=== PATIENT | male | born 1955 | race Caucasian/White ===

== ENCOUNTER → 2017-06-17 06:47 | Outpatient (CLI) | payer BC, SELFPAY ==
[2017-06-17 08:17] LABS: Absolute Lymphocyte Count 1.44 X10^3/ul (0.83-4.51); Absolute Neutrophil Count 3.9 X10^3/uL (2.0-7.7); Basophil# 0.04 X10^3/uL; Basophil% 0.6 % (0-1); Eosinophil# 0.32 X10^3/uL; Eosinophils% 5.1 % (0-5); Hematocrit 49.2 % (40-54); Hemoglobin 16.7 g/dl (13.0-16.5); Lymphocyte # 1.44 X10^3/ul (4.0); Lymphocyte % 22.8 % (19-41); Mean Corp Hgb Conc 33.9 g/gl (32-36); Mean Corpuscular Hgb 30.5 pg (27.0-32.0); Mean Corpuscular Volume 89.8 fL (80-94); Mean Platelet Vol. 9.8 fl (6.2-12.0); Monocyte# 0.65 X10^3/uL; Monocyte% 10.3 % (0-10); Neutrophil # 3.86 X10^3/uL (2.7-7.7); Platelet Count 268 K/mm3 (150-450); RBC Distribution Width CV 13.5 % (11.6-14.6); RBC Distribution Width SD 44.7 fl (35.1-43.9); Red Blood Count 5.48 M/mm3 (4.6-6.2); White Blood Count 6.3 K/mm3 (4.4-11.0)
[2017-06-17 08:30] LABS: POSITIVE COUNT NO; POSITIVE DIFFERENTIAL NO; POSITIVE MORPHOLOGY NO
[2017-06-17 08:40] LABS: ALB/GLOB Ratio 1.1 RATIO (0.9-2.4); AST(SGOT) 14 U/L (15-37); Alanine Aminotransfer ALT/SGPT 22 U/L (16-61); Albumin, Serum 3.8 g/dL (3.2-5.0); Alkaline Phosphatase 101 U/L (45-117); Anion Gap 4 (5-15); BUN 13 mg/dL (7-18); Calcium,Total 8.3 mg/dL (8.5-10.1); Chloride 107 mmol/L (98-107); Cholesterol 149 mg/dL (200); Creatinine, Serum 0.93 mg/dL (0.70-1.30); EST Glomerular Filtration Rate 88 mL/min (>60); Est Glom Filt Rate - Afr Amer 106 mL/min (>60); Globulin 3.6 g/dL (2.2-4.2); Glucose 95 mg/dL (74-106); High Density Lipoprotein 44 mg/dL; Potassium 4.2 mmol/L (3.5-5.1); Protein, Total 7.4 g/dL (6.4-8.2); Sodium Level 140 mmol/L (136-145); Triglycerides 68 mg/dL; Very Low Density Lipoprotein 14 mg/dL (5-40)
== END ==
PROVIDERS: Family Provider Family Medicine; PCP Family Medicine; Visit Provider Family Medicine
DX: Z00.00 Encounter for general adult medical examination without abnormal findings (principal); Z77.29 Contact with and (suspected) exposure to other hazardous substances; F17.200 Nicotine dependence, unspecified, uncomplicated
CPT/HCPCS: 36415; 80053; 80061; 83036; 85025

== ENCOUNTER → 2017-06-22 16:19 | Outpatient (CLI) | payer BC, SELFPAY | PROVIDERS: Family Provider Family Medicine; PCP Family Medicine; Visit Provider Family Medicine | DX: F17.200 Nicotine dependence, unspecified, uncomplicated (principal) | CPT/HCPCS: 36415 ==

== ENCOUNTER → 2017-06-23 18:53 | Outpatient (CLI) | payer BC, SELFPAY ==
--- NOTE | 2017-06-23 19:01 | CT_ITS ---
STUDY: LOW DOSE CT LUNG CANCER SCREENING REASON FOR EXAM: Male, 61 years old. Long-term tobacco abuse. RADIATION DOSAGE (If Supplied By Facility): CTDIvol = ( 4.02 ) mGy, DLP = ( 116.82 ) mGycm TECHNIQUE: No contrast was administered. Low dose technique was utilized (average mAS-38 and kVp 120). 1.25 mm axial source images with a slice interval of 1.25-mm were reconstructed in lung windows. 2.5 mm axial source images with a slice interval of 2.5-mm were reconstructed in lung windows. 5.0 mm axial source images with a slice interval of 5.0-mm were reconstructed in soft tissue windows. Nodule measured using lung windows on PACS and/or independent workstation with automated measurement of minimum and maximum diameter. Nodule measurement reported as average diameter rounded to the nearest whole number. Growth is defined as an increase ins size of greater than 1.5 mm. COMPARISON: Comparison is made with prior examination dated October 14, 2012. NODULES: No suspicious nodular densities are seen. Mild increased markings at the lung bases suggesting mild basilar scarring. Aorta: Mild calcific plaques at the level of the aortic arch. Other chest and abdominal findings: Degenerative changes of the dorsal vertebrae. CT/Low Dose CT Lung Screening IMPRESSION: Lung-RADS category 2 - Continue annual screening with LDCT in 12 months. IMPORTANT NOTES FOR USE: ACR Lung-RADS Version 1.0 Assessment Categories Release Date: August 06, 2013 Category: Coded 0-4 bases on nodule(s) with highest degree of suspicion. Negative screen is defined as categories 1 and 2; a positive screen is defined as categories 3 and 4. Category 3 and 4A nodules that are unchanged on interval CT should be coded as category 2, and individuals returned to screening in 12 months. Category 4X: Category 3 or 4 nodules with additional imaging findings that increase the suspicion of lung cancer, such as spiculation, GGN that doubles in size in 1 year, enlarged lymph notes, etc. Category Modifiers: S (significant finding unrelated to lung cancer) and C (prior history of treated lung cancer) may be added to the 0-4 Lung-RADS Electronically Signed: Aneudy Garvin MD at 12:34 EDT Tel [phone], Service support ,
== END ==
PROVIDERS: Family Provider Family Medicine; PCP Family Medicine; Visit Provider Family Medicine
DX: F17.200 Nicotine dependence, unspecified, uncomplicated (principal)
CPT/HCPCS: G0297

== ENCOUNTER 2017-10-25 05:26 | Inpatient (IN) | payer BC, SELFPAY ==
[2017-10-07 13:13] VITALS: BP 129/80; PULSE 70; RESP 16; TEMP 36.7; O2SAT 97; BMI 33.3
--- NOTE | 2017-10-07 13:37 | SDCEKG_ITS ---
Test Reason : Blood Pressure : / mmHG Vent. Rate : 067 BPM Atrial Rate : 067 BPM P-R Int : 148 ms QRS Dur : 092 ms QT Int : 430 ms P-R-T Axes : 027 034 039 degrees QTc Int : 454 ms Normal sinus rhythm Normal ECG Confirmed by NIKUNJ MATA, MALENA ([id number]), multimedia editor CAROLYN RAMIREZ ([id number]) on 10/10/2017 3:06:08 PM Referred By: Les Hester Confirmed By:MALENA CALVIN MD
[2017-10-07 14:03] LABS: Absolute Lymphocyte Count 1.43 X10^3/ul (0.83-4.51); Absolute Neutrophil Count 4.5 X10^3/uL (2.0-7.7); Basophil# 0.04 X10^3/uL; Basophil% 0.5 % (0-1); Eosinophils% 6.8 % (0-5); Hematocrit 41.9 % (40-54); Hemoglobin 14.1 g/dl (13.0-16.5); Lymphocyte # 1.43 X10^3/ul (4.0); Lymphocyte % 19.5 % (19-41); Mean Corp Hgb Conc 33.7 g/gl (32-36); Mean Corpuscular Hgb 30.5 pg (27.0-32.0); Mean Corpuscular Volume 90.7 fL (80-94); Mean Platelet Vol. 9.4 fl (6.2-12.0); Monocyte# 0.82 X10^3/uL; Monocyte% 11.2 % (0-10); Neutrophil # 4.53 X10^3/uL (2.7-7.7); Neutrophil % 61.9 % (47-70); Platelet Count 221 K/mm3 (150-450); RBC Distribution Width CV 14.2 % (11.6-14.6); RBC Distribution Width SD 47.3 fl (35.1-43.9); Red Blood Count 4.62 M/mm3 (4.6-6.2); White Blood Count 7.3 K/mm3 (4.4-11.0)
[2017-10-07 14:04] LABS: POSITIVE COUNT NO; POSITIVE DIFFERENTIAL NO; POSITIVE MORPHOLOGY NO
[2017-10-07 14:10] LABS: International Normalized Ratio 1.1; Prothrombin Time (Protime)PT. 14.1 SECONDS (11.7-14.9)
[2017-10-07 14:11] LABS: Partial Thromboplast Time 33.7 Seconds (24.1-36.2)
[2017-10-07 14:28] LABS: AST(SGOT) 23 U/L (15-37); Alanine Aminotransfer ALT/SGPT 25 U/L (16-61); Albumin, Serum 3.7 g/dL (3.2-5.0); Alkaline Phosphatase 94 U/L (45-117); Anion Gap 8 (5-15); BUN 29 mg/dL (7-18); BUN/Creat Ratio 31.8 RATIO (10-20); Bilirubin, Direct 0.15 mg/dL (0.00-0.30); Calcium,Total 8.1 mg/dL (8.5-10.1); Chloride 109 mmol/L (98-107); Creatinine, Serum 0.91 mg/dL (0.70-1.30); EST Glomerular Filtration Rate 89 mL/min (>60); Est Glom Filt Rate - Afr Amer 108 mL/min (>60); Estimated Creatinine Clearance 77.68 ml/min; Globulin 3.1 g/dL (2.2-4.2); Glucose 111 mg/dL (74-106); Potassium 3.8 mmol/L (3.5-5.1); Protein, Total 6.8 g/dL (6.4-8.2); Sodium Level 142 mmol/L (136-145)
--- NOTE | 2017-10-07 22:26 | HP.PCM_ITS ---
History and Physical DATE OF SURGERY: 10/25/2017 SCHEDULED PROCEDURE: Left reverse total shoulder arthroplasty HISTORY OF PRESENT ILLNESS: This is a 62-year-old male whose been having ongoing left shoulder pain for several months. Pain can reach as high as a 9 out of 10. Pain has been constant, aching, and stabbing. Patient is right-hand dominant. 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 He states increased pain with driving. Pain is located over the anterior lateral aspect of the left shoulder. Patient feels his activities of daily living have been affected. Patient feels his motion is limited in comparison to his right side. Patient has had conservative measures consisting of previous corticosteroid injections which only gave him 1 day relief. He has also tried [id number] Aleve, Advil, Tylenol with no significant relief. He has tried tramadol the past with minimal relief. Patient's x-rays show severe rotator cuff arthropathy with superior migration of the humeral head and where under the undersurface of the acromion. Patient currently denies any chest pain, shortness of breath, fevers chills, or recent infections. Patient denies any medical history. We are obtaining surgical clearance from patient's primary care physician. REVIEW OF SYSTEMS: ROS: Const: Denies anorexia, change in appetite, fever, difficulty sleeping and weight change. CV: Denies chest pain, heart murmur, irregular heartbeat and peripheral vascular disease. Resp: Denies asthma, cough, pneumonia, sleep apnea, shortness of breath, tuberculosis and wheezing. GI: Denies constipation, diarrhea, heartburn, nausea, rectal itching, bloody stools and vomiting. : Denies incontinence. Musculo: Reports weakness, but denies leg swelling, pain and trouble walking. Skin: Denies Raynaud's, history of shingles and tattoo. Neuro: Denies ambulatory dysfunction, dizziness, numbness/tingling and tremor. Psych: Denies anxiety, depression, insomnia, mental illness and stress. Ahmet/Lymph: Denies anemia, bleeding/bruising tendency and past transfusion. Reviewed, no changes. PAST MEDICAL HISTORY: Advance Care Plan: Other Directive, LIVING WILL Effective Date: 08/12/2017 PMH: Medical Problems: None Accidents: Bilat Shoulder Sprain,Tear Surgical Hx: RT Shoulder Tendon Repair - [facility] Anesthesia Complications: None Assistive Devices: Glasses Reviewed, no changes. 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 Personal Habits: Smoking: Patient is a current smoker, smokes every day.Cigarette Use: Currently smokes - 3/4 PPD FOR 35 YRS.Alcohol: Occasionally.Drug Use: Denies Use.Enjoy Exercising: Exercises 1-3 X/Week. Reviewed, no changes. VITALS: Ht: 67.5 Wt: 216lb Wt k.978 BMI: 33.3 BP: 148/63 Pulse: 73 Resp: 16 T: 97.9 T: 36.6C ALLERGIES: No Known Drug Allergy MEDICATIONS: Meloxicam 15 mg 1 by mouth every day, Tramadol HCL 50 mg 1-2 by mouth every 6 hours as needed pain, Tylenol 325 mg 2 every 8 hours PRE-OP EXAM: General appearance:NORMAL Other: Eyes: Conjunctivae and lids: NORMAL Pupils: ERR Ears, Nose, Mouth, and Throat: NORMAL Other: Inspection of lips, teeth and gums: NORMAL Other: Neck: Examination of neck: no masses noted. Respiratory: Assessment of respiratory effort: NORMAL Other: Auscultation of lungs: clear to auscultation no wheezes, rhonchi or rales. Cardiovascular: Auscultation of heart: regular rate and rhythm, no murmurs, gallops or rubs. Exam of carotid arteries: NORMAL Other: Gastrointestinal: Exam of abdomen: soft, nontender, nondistended bowel sounds present. PHYSICAL EXAMINATION: Examination of the left shoulder reveals tenderness to palpation of the anterior and lateral aspect. On range of motion there is crepitus appreciated. Patient has internal rotation to L1, forward elevation to 170, external rotation 10. Patient has decreased strength with his rotator cuff: Supraspinatus 4/5. Sensation is intact to axillary, radial, median, and ulnar nerve distribution. Motor is intact to AIN, PI and, in ulnar nerve. IMAGING STUDIES: X-rays of the left shoulder reveal severe rotator cuff arthropathy with joint space narrowing, osteophyte formation, and superior migration of the humeral head. There is also undersurface wear of the acromion. IMPRESSION: 1. Severe left shoulder rotator cuff arthropathy with superior migration of the humeral head PLAN: Dr. Hester did discuss and review with the patient all treatment options including surgical versus nonsurgical options. Patient does wish to proceed with the above-stated procedure. Potential risks, benefits, and complications of the procedure were discussed in detail including but not limited to , infection, nerve and blood vessel damage, persistent pain, numbness, tingling, paresthesias, blood clot, pulmonary embolism, and requirement for possible further surgery. The patient expressed full understanding and has no further questions for the doctor. Patient does agree to proceed with the above-stated procedure and has signed the surgery consent form. ___ I have re-examined the patient. There are no clinical changes since date of exam. ___ See progress notes for changes. ___ Dictated on admission Date: Time: Signature:
[2017-10-25] VITALS (10 sets, daily range): BP systolic 109–150; BP diastolic 69–93; PULSE 63–83; RESP 16–18; TEMP 36–37; O2SAT 92–98; BMI 33.3
[2017-10-25] MEDS: Celecoxib 200 MG Capsule 400 MG PO (05:59)
[2017-10-25] MEDS: oxyCODONE HCl Cr 10 MG Tablet PO (06:00)
[2017-10-25] MEDS: Acetaminophen 500 MG Tablet 1000 MG PO ×3 (06:00→22:22)
--- NOTE | 2017-10-25 06:48 | RAD_ITS ---
STUDY: X-RAY - LEFT SHOULDER REASON FOR EXAM: Male, 62 years old. Left shoulder arthroplasty. TECHNIQUE: Single frontal view(s) of the shoulder. COMPARISON: None. FINDINGS: The patient is status post left reverse shoulder replacement. There is good alignment. Left basilar atelectasis. RAD/Shoulder One View IMPRESSION: Status post left shoulder replacement. There is good alignment. Increased markings at the left lung base suggestive of left basilar atelectasis. Electronically Signed: Aneudy Garvin MD at 10:25 EDT Tel [phone], Service support ,
[2017-10-25] MEDS: Cefazolin 2 GM in 0.9% Normal Saline 100 ML IV (07:16)
--- NOTE | 2017-10-25 08:55 | OP.PCM_ITS ---
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 Equinox glenoid baseplate from [employer] for reverse TSA 2. Equinox 38mm Glenosphere 3. Equinox 0mm, 38mm humeral liner 4. Equinox reverse TSA humeral adapter tray 0mm 5. Equinox humeral stem primary press-fit 14mm size Brief history/Operative indications: 62 yo m with history of L shoulder pain and cuff tear arthropathy. Patient failed conservative measures as mentioned in the H&P. After discussion of risk and benefits of reverse total shoulder replacement including but not limited to blood loss, DVTs, PEs, nerve vessel damage, infection, general risk of anesthesia including loss of life, instability and stiffness patient demonstrating understanding wish to proceed was able to sign informed consent. Medical clearance was obtained. Procedure: On the date of the procedure, patient's L upper extremity was marked in the preoperative area. Patient was taken back to the operating room where they were placed on the table in the supine position. Anesthesia assumed control of the C-spine and airway, then administered anesthetic. All bony prominences were identified well-padded, the head was secured and the patient was placed in the beachchair position at about 35? inclination. Anesthesia remained in control of the C-spine airway throughout the remainder of the procedure. Patient was then appropriately fastened to the table and the L upper extremity was prepped in a sterile fashion. The surgeons then scrubbed. Upon reentering the room, the L upper extremity was draped in a sterile fashion and the incision was marked out. Timeout was called, everyone agreed upon the side, the site, the procedure to be performed, patient identity and antibiotics given. Incision was taken down through skin and subcutaneous tissue, fat down to fascia. The stripe of the deltopectoral interval and cephalic vein were identified and blunt dissection was used to retract the deltoid. The cephalic vein was retracted laterally. Clavipectoral fascia was then incised and a cobra retractor was placed in the wound. The proximal one third of the pectoralis major insertion was released. Pectoralis tendon insertion was used to tenodesed the biceps tendon which was identified in the bicipital groove. Tenodesis was done with #1 Vicryl. Proximally we followed the biceps tendon after transecting it into the rotator interval. The rotator interval was split and the arm was externally rotated. The split was 1 cm medial to the bicipital groove. Subscapularis tendon was released. We released down the anterior portion of the humeral head and a patel elevator was used to release the inferior portion of the humeral head. The arm was externally rotated and the shoulder was dislocated. The [employer] humeral head cutting guide was used to make humeral cut. This was done at 20? retroversion. Once his humeral head cut was made humerus was retracted out of the way and the glenoid was exposed. After exposing the glenoid, the labrum and the remaining proximal biceps were debrided. At this time we are able to view the entire outer edge of the glenoid. A central pin was placed we sequentially reamed over this central pin to 38 mm. Once this was completed the central pedicle was drilled. The glenoid baseplate was impacted into place. Wound was closely irrigated out with normal saline we then drilled sequentially for 4 screws. Screws were placed superiorly and inferiorly and tightened down the screws. Then anteriorly and posteriorly. Once the screws were appropriately tightened into place the glenoid baseplate was compressed against the exposed subchondral bone. Locking caps were placed and a 38mm glenosphere was impacted into place engaging the Hoff taper. The central screw was then tightened into place. Attention was then turned towards the humerus. The humerus was again externally rotated exposing the proximal portion of the humerus. Central canal finder was then used to open up the canal. We broached to a 38mm reamer. We trialed the 0mm liner, with the 0mm humeral baseplate. We obtained an adequate reduction at this time with a nice stable shoulder. Good internal rotation to the gluteus, forward elevation to 140?, external rotation to 20?. Final components were then assembled on the back table, trials were removed and the wound was copiously irrigated with normal saline after dislocating the shoulder. Once the final components were assembled they were impacted into place. Shoulder was then reduced and found to be stable with good range of motion. Subscapularis tendon was not repairable. The wound was then copiously irrigated out with a 1 L normal saline lavage. The deltopectoral fascia was then closed using #1 Vicryl skin was closed using 2-0 Vicryl interrupted sutures and final skin closure was done with 3-0 Monocryl. Steri-Strips are placed for final skin closure. Sterile dressing was placed patient was then placed in a sling and awakened by anesthesia. Patient was then transferred to the PACU for recovery. Postoperative plan: Patient will be admitted to the hospital overnight. They will get physical therapy starting in 2 weeks with normal postoperative regimen. Patient will be placed on 325 mg aspirin daily for DVT prophylaxis. The first postoperative appointment will be in 2 weeks for wound check and initiation of phase 1 physical therapy. During the course of the procedure the physician office assistant played a vital role. His intimate knowledge of my steps in the procedure aided in safe and expedient completion of the procedure. The PA played a vital rolls in positioning particularly in obtaining the appropriate beach chair position and securing the patient's body and head to the table. The PA was also vital in the retraction of soft tissues during the exposure and especially the glenoid work as this is a vital part of the procedure to prevent neurovascular damage. the PA was also vital and protecting soft tissues during times of bony cuts and reaming. He also played a vital role in closure with my direct supervision. The PA was also important during reduction and dislocation of the joint and trials intraoperatively. Grafts/Implants Used: [employer] Equinox - Complications none - Admit VTE Documentation VTE Present on Admission: No VTE Mechan Device Prophylaxis: SCD's VTE Pharm Prophylaxis ordered?: Yes
[2017-10-25] MEDS: Lactated Ringers 1,000 ML 125 ML IV ×2 (10:23→19:30)
[2017-10-25] MEDS: Famotidine 20 MG Tablet PO (13:46)
[2017-10-25] MEDS: Cefazolin 1 GM/50 ML BAG IV ×2 (14:41→22:22)
[2017-10-26 02:10] VITALS: BP 101/56; PULSE 65; RESP 16; TEMP 36.8; O2SAT 96
[2017-10-26] MEDS: Acetaminophen 500 MG Tablet 1000 MG PO (05:58)
--- NOTE | 2017-10-26 07:21 | PCM.PN.ORT ---
Subjective: The patient was sitting in bedside chair upon examination. Patient denies any chest pain, shortness of breath, dizziness, lightheadedness, nausea or vomiting, or calf pain. Pain is controlled on medications. No adverse overnight events. Patient is doing very well at this time. Plan is for him to go home today. Objective: Dressing is C/D/I Ultra-sling fitting appropriately Sensation intact to axillary, radial, median, and ulnar distribution Motor intact to AIN, PIN, and ulnar nerve - Physical Exam General: Alert, Oriented x3, Cooperative, No apparent distress Vital Signs Temp Pulse Resp BP Pulse Ox 98.2 F 65 16 101/56 L 96 10/26/17 02:10 10/26/17 02:10 10/26/17 02:10 10/26/17 02:10 10/26/17 02:10 Oxygen Delivery Method Room Air Weight: 97.9 kg Body Mass Index (BMI) 33.3 Intake and Output for Last 24 Hours 10/24/17 10/25/17 10/26/17 23:59 23:59 23:59 Intake Total 3829 / 3829 368 / 368 Output Total 375 / 375 Balance 3454 / 3454 368 / 368 Medical Necessity - Tobacco Use Smoking Status: Current some day smoker Tobacco Use: Cigarettes Assessment/Plan 1. S/P left reverse total shoulder arthroplasty POD #1 2. Continue Pain Medications: Tylenol and OxyIR 3. DVT Prophylaxis: 81 mg aspirin once daily for 2 weeks 4. PT/OT: Continue with UltraSling at all times, okay to work on elbow, wrist, hand range of motion. Okay for pendulum exercises. No range of motion of the left shoulder. Plan will be for scheduled outpatient physical therapy 2 weeks postoperatively. 5. Encouraged Incentive Spirometry 6. Disposition: Orthopedically stable, plan is for discharge home today. Prescriptions will be E scribed to [facility]. Patient will follow-up per postop instructions..
--- NOTE | 2017-10-26 07:28 | DCINST_ITS ---
Discharge Diet: No Restrictions Discharge Activity: May Not Drive May shower in (days): 1 - Turned dressing away from water Ice area for (Minutes): 20 - Every 1-2 hours while awake Weight Bearing Status: No weight bearing - Left upper extremity Keep extremity elevated above heart level: Operative Extremity Call your doctor if your incision/area has: Continuous Slow Oozing, Sudden Increased Bleeding, Increased Pain/ Swelling, Increased Redness, Foul Smelling Discharge Call your doctor if you observe: Fever of 101 or Higher, Coldness, Increased Pain, Numbness or Tingling, Change in Color Remove Dressing in (days):: 4 - Okay to remove dressing on October 30, 2017 Additional Instructions: Follow [facility] postop instructions Continue with UltraSling at all times. Okay to come out of UltraSling 4 times a day to work on elbow, wrist, and hand range of motion. Okay for pendulum exercises. Will begin outpatient formal physical therapy after 2 week follow- up appointment at [facility]. Allergies/Adverse Reactions: Allergies No Known Allergies Allergy (Verified 10/07/17 13:08) Medications to take at Discharge Acetaminophen [Tylenol] 1,000 mg PO Q8 #90 tab 10/26/17 Aspirin [Aspirin, Baby] 81 mg PO DAILY@0800 #13 tab.chew 10/26/17 Famotidine [Pepcid] 20 mg PO DAILY #13 tab 10/26/17 Oxycodone [Oxyir] 5 - 10 mg PO Q4H PRN PRN 5 Days #60 tablet 10/26/17 The following prescriptions were given: Oxycodone [Oxyir] 5 - 10 mg PO Q4H PRN PRN 5 Days #60 tablet PRN Reason: Pain Acetaminophen [Tylenol] 1,000 mg PO Q8 #90 tab Aspirin [Aspirin, Baby] 81 mg PO DAILY@0800 #13 tab.chew Famotidine [Pepcid] 20 mg PO DAILY #13 tab Primary Care Physician: Fei Hernandez MD [Primary Care Provider] - Test Results: Test results from this visit will be discussed in further detail at your follow- up appointment, if applicable. Please Follow Up With: Nikko Lobo PA-C When: 11/07/17 @ 9:15 am Please Follow Up With: physical therapy [facility] When: 11/07/17 @ 10:00 am
[2017-10-26] MEDS: Famotidine 20 MG Tablet PO (08:04)
[2017-10-26] MEDS: Aspirin 81 MG TAB.CHEW PO (08:04)
[2017-10-26 08:05] VITALS: BP 105/68; PULSE 60; RESP 18; TEMP 36.7; O2SAT 98
--- NOTE | 2017-10-26 12:05 | CASEMGMT ---
KALI WHITAKER Face to Face with patient for initial transition planning/care coordination assessment. KALI WHITAKER introduced self and role at [facility]. Patient sitting in chair, alert and oriented. Patient willing to participate in assessment and is able to answer all questions appropriately. Care providers, pharmacy, and demographics verified. Patient states that he lives in a house with his father who will be assisting with care and providing transportation. Pt wishes to discharge home, denies need for home health at this time. Patient states he has no further needs or concerns at this time. CM to follow for discharge planning needs that may arise. Disposition Plan: Patient to discharge home with family support and follow-up plans in place.
[2017-10-26 12:51] VITALS: BP 128/77; PULSE 70; RESP 118; TEMP 36.7; O2SAT 98
== END 2017-10-26 12:56 | disposition home or self-care (01) | DRG 483 ==
LOC: ACINP 05:27 → MS3 08:17
PROVIDERS: Anesthesiology; Admitting Provider Specialist; Family Provider Family Medicine; PCP Family Medicine; Visit Provider Specialist
PROC: 0RRK00Z Replacement of Left Shoulder Joint with Reverse Ball and Socket Synthetic Substitute, Open Approach (ICD-10-PCS; CPT 23472; principal; 2017-10-25 06:45)
DX: M12.812 Other specific arthropathies, not elsewhere classified, left shoulder (principal); M75.102 Unspecified rotator cuff tear or rupture of left shoulder, not specified as traumatic
CPT/HCPCS: 73020; 80048; 80076; 85025; 85610; 85730; 87077; 87081; 93005; 97165; C1776; J7040; J7120

== ENCOUNTER → 2018-06-29 13:47 | Outpatient (CLI) | payer BC, SELFPAY ==
[2018-06-29 08:28] LABS: Absolute Lymphocyte Count 1.77 X10^3/ul (0.83-4.51); Absolute Neutrophil Count 4.4 X10^3/uL (2.0-7.7); Basophil# 0.04 X10^3/uL; Basophil% 0.5 % (0-1); Eosinophil# 0.38 X10^3/uL; Eosinophils% 5.1 % (0-5); Hematocrit 50.3 % (40-54); Hemoglobin 16.5 g/dl (13.0-16.5); Lymphocyte # 1.77 X10^3/ul (4.0); Lymphocyte % 23.9 % (19-41); Mean Corp Hgb Conc 32.8 g/gl (32-36); Mean Corpuscular Hgb 29.7 pg (27.0-32.0); Mean Corpuscular Volume 90.5 fL (80-94); Monocyte# 0.82 X10^3/uL; Monocyte% 11.1 % (0-10); Neutrophil % 59.3 % (47-70); POSITIVE COUNT NO; POSITIVE DIFFERENTIAL NO; POSITIVE MORPHOLOGY NO; Platelet Count 274 K/mm3 (150-450); RBC Distribution Width CV 13.7 % (11.6-14.6); RBC Distribution Width SD 45.4 fl (35.1-43.9); Red Blood Count 5.56 M/mm3 (4.6-6.2); White Blood Count 7.4 K/mm3 (4.4-11.0)
[2018-06-29 08:47] LABS: Microalbumin,Random Urine 9.3 mg/L (NO RANGE EST.); Microalbumin:Creatinine Ratio 6.7 mg/g CRE (<30 mg/g CRE)
[2018-06-29 09:07] LABS: ALB/GLOB Ratio 1.1 RATIO (0.9-2.4); AST(SGOT) 19 U/L (15-37); Alanine Aminotransfer ALT/SGPT 18 U/L (16-61); Albumin, Serum 3.9 g/dL (3.2-5.0); Alkaline Phosphatase 106 U/L (45-117); Anion Gap 9 (5-15); BUN 19 mg/dL (7-18); BUN/Creat Ratio 22.5 RATIO (10-20); Calcium,Total 8.3 mg/dL (8.5-10.1); Chloride 108 mmol/L (98-107); Cholesterol 147 mg/dL (200); Creatinine, Serum 0.84 mg/dL (0.70-1.30); EST Glomerular Filtration Rate 97 mL/min (>60); Est Glom Filt Rate - Afr Amer 118 mL/min (>60); Globulin 3.5 g/dL (2.2-4.2); Glucose 83 mg/dL (74-106); High Density Lipoprotein 45 mg/dL; Protein, Total 7.4 g/dL (6.4-8.2); Sodium Level 141 mmol/L (136-145); Thyroid Stim Hormone (TSH) 2.42 uIU/mL (0.358-3.74); Triglycerides 52 mg/dL; Very Low Density Lipoprotein 10 mg/dL (5-40)
[2018-06-29 09:39] LABS: Vitamin B12 353 pg/mL (211-911)
--- NOTE | 2018-06-29 13:51 | CT_ITS ---
STUDY: LOW DOSE CT LUNG CANCER SCREENING REASON FOR EXAM: Male, 62 years old. Long history of smoking. RADIATION DOSAGE (If Supplied By Facility): CTDIvol = ( 3.40 ) mGy, DLP = ( 105.52 ) mGycm TECHNIQUE: No contrast was administered. Low dose technique was utilized (average mAS-38 and kVp 120). 1.25 mm axial source images with a slice interval of 1.25-mm were reconstructed in lung windows. 2.5 mm axial source images with a slice interval of 2.5-mm were reconstructed in lung windows. 5.0 mm axial source images with a slice interval of 5.0-mm were reconstructed in soft tissue windows. Nodule measured using lung windows on PACS and/or independent workstation with automated measurement of minimum and maximum diameter. Nodule measurement reported as average diameter rounded to the nearest whole number. Growth is defined as an increase ins size of greater than 1.5 mm. COMPARISON: None. NODULES: The lungs are normal. There is no demonstrated pleural abnormality. Normal heart and pericardium. Normal mediastinum. Normal hilar regions. Normal unenhanced pulmonary arteries. Normal aorta arch and descending thoracic aorta. There are multi-level degenerative changes of the thoracic spine. There is possible nondisplaced fracture of the left seventh rib. There is no demonstrated abnormality of the visualized upper abdomen. CT/Chest without Contrast IMPRESSION: Lung-RADS category 2. Benign findings. There is possible nondisplaced fracture of the left seventh rib. Recommendation: Routine screening CT scan in one year. IMPORTANT NOTES FOR USE: ACR Lung-RADS Version 1.0 Assessment Categories Release Date: August 06, 2013 Category: Coded 0-4 bases on nodule(s) with highest degree of suspicion. Negative screen is defined as categories 1 and 2; a positive screen is defined as categories 3 and 4. Category 3 and 4A nodules that are unchanged on interval CT should be coded as category 2, and individuals returned to screening in 12 months. Category 4X: Category 3 or 4 nodules with additional imaging findings that increase the suspicion of lung cancer, such as spiculation, GGN that doubles in size in 1 year, enlarged lymph notes, etc. Category Modifiers: S (significant finding unrelated to lung cancer) and C (prior history of treated lung cancer) may be added to the 0-4 Lung-RADS Electronically Signed: Lilly Lobo, at 10:00 EDT Tel , Service support ,
== END ==
PROVIDERS: Family Provider Family Medicine; PCP Family Medicine; Referring Provider Family Medicine; Visit Provider Family Medicine
DX: R03.0 Elevated blood-pressure reading, without diagnosis of hypertension (principal); G56.03 Carpal tunnel syndrome, bilateral upper limbs; Z72.0 Tobacco use; Z13.220 Encounter for screening for lipoid disorders
CPT/HCPCS: 36415; 71250; 80053; 80061; 82043; 82570; 82607; 82746; 84443; 85025

== ENCOUNTER 2019-01-10 05:38 | Day surgery (SDC) | payer BC, SELFPAY ==
[2017-10-25 10:33] VITALS: BMI 33.3
[2019-01-10 06:05] VITALS: BP 114/78; PULSE 55; RESP 16; TEMP 36.5; O2SAT 96; BMI 31.5
[2019-01-10] MEDS: Lactated Ringers 1,000 ML 100 ML IV (06:28)
[2019-01-10] MEDS: Cefazolin 1 GM/50 ML BAG IV (06:58)
[2019-01-10] MEDS: Bupivacaine Mpf 0.5% 30 ML VIAL (07:10)
--- NOTE | 2019-01-10 07:20 | PCM.OPRPT ---
Report of Operation Date of Procedure: 01/10/19 Pre-Operative Diagnosis: Left carpal tunnel syndrome Post-Operative Diagnosis: Left carpal tunnel syndrome Surgery/Procedure Performed:: Left carpal tunnel release Description of Surgical Findings:: Complete release transverse carpal ligament senior graduate advisor: None Type of Anesthesia:: Block,Benigno Anesthesiologist: Marc Dodge Special Medications: Ancef Estimated Blood Loss (mL): 1 Fluids Replaced: 500 mL crystalloid Description of Procedure: Brief history operative indications: 63-year-old male who failed conservative measures for left carpal tunnel syndrome. Patient wished to proceed with left open carpal tunnel release. After discussing risks and benefits including but not limited to blood loss, DVTs, PEs, neurovascular damage, infection, hematoma and general risk of anesthesia, the patient demonstrated understanding wish to proceed with left open carpal tunnel release Procedure: On the date of the procedure, the patient's left upper extremity was marked in the preoperative area. Patient was taken back to the operating room, where the tourniquet was placed on the right upper extremity. Patient was given light sedation. All bony prominences are identified well-padded. Anesthesia assumed control C-spine and airway and remained in control throughout the remainder the procedure. [place] block was administered by anesthesia. The left upper extremity was prepped in sterile fashion. Surgeon then scrub. Upon reentering the room, the left upper extremity was prepped in a standard orthopedic fashion. A timeout was called and everyone agreed upon the side, the site, the procedure to be performed, patient identity and antibiotics given. The incision was marked out. Incision was taken at the skin subtenons tissue fat down to fascia. Fascia was then lightly tethered until the median nerve was visible. A [place] was placed proximally and distally, and then scissors were placed proximally and distally to release the transverse carpal ligament. During the release the others were never completely closed. The [place] was then placed proximally and distally once more to verify the transverse carpal ligament had been adequately released. The wound was then copiously irrigated out with normal saline. Wound was then closed using 3-0 nylon suture. 10 cc of 50-50 mixture of 1% lidocaine and 0.5% Sensorcaine without epinephrine injection was given. Xeroform dressing was placed, sterile dressing was placed, compressive dressing was placed. Tourniquet was let down. Volar splint was placed. Patient was awakened by anesthesia and transferred to the PACU for recovery. Postoperative plan: The patient will follow up in 2 weeks for removal splint removal sutures. At that time if they are doing well they will follow-up as needed. - Complications No intraoperative complications - Admit VTE Documentation VTE Present on Admission: No VTE Mechan Device Prophylaxis: SCD's VTE Pharm Prophylaxis ordered?: No Reason prophylaxis not ordered:: Treatment Not Indicated
[2019-01-10 07:30] VITALS: BP 106/75; BP 114/78; PULSE 56; RESP 16; TEMP 36.7; O2SAT 95
[2019-01-10 07:35] VITALS: BP 114/78; BP 115/77; PULSE 54; RESP 16; O2SAT 94
[2019-01-10 07:40] VITALS: BP 114/73; BP 114/78; PULSE 54; RESP 16; O2SAT 94
[2019-01-10] MEDS: Ketorolac 30 MG/ML Syringe IV (07:44)
[2019-01-10 07:45] VITALS: BP 114/78; BP 116/78; PULSE 59; RESP 16; TEMP 36.6; O2SAT 96
[2019-01-10 08:07] VITALS: BP 114/78
== END 2019-01-10 08:25 | disposition home or self-care (01) ==
LOC: SDC 05:46 → AC 05:46
PROVIDERS: Family Provider Family Medicine; PCP Family Medicine; Referring Provider Specialist; Visit Provider Specialist
PROC: (CPT 64721; principal; 2019-01-10 07:00)
DX: G56.03 Carpal tunnel syndrome, bilateral upper limbs (principal); G56.21 Lesion of ulnar nerve, right upper limb; F17.200 Nicotine dependence, unspecified, uncomplicated
CPT/HCPCS: 64721; J7120

== ENCOUNTER 2019-01-24 05:26 | Day surgery (SDC) | payer BC, SELFPAY ==
[2019-01-24 05:55] VITALS: BP 111/74; PULSE 61; RESP 16; TEMP 36.5; O2SAT 95; BMI 31.4
[2019-01-24] MEDS: Lactated Ringers 1,000 ML 100 ML IV ×2 (06:27→08:58)
[2019-01-24] MEDS: Cefazolin 1 GM/50 ML BAG IV (07:14)
--- NOTE | 2019-01-24 07:14 | PCM.PN.BLA ---
Progress Note History physical from 01/04/2019 was reviewed, patient is recovered well from left carpal tunnel release. No other significant changes to his H&P at this time after reexamination today.
[2019-01-24] MEDS: Bupivacaine Mpf 0.5% 30 ML VIAL (08:18)
--- NOTE | 2019-01-24 08:18 | OP.PCM_ITS ---
Report of Operation Date of Procedure: 01/24/19 Pre-Operative Diagnosis: 1. Right carpal tunnel syndrome. 2. Right ulnar nerve compression Post-Operative Diagnosis: 1. Right carpal tunnel syndrome. 2. Right subluxing ulnar nerve Surgery/Procedure Performed:: 1. Right carpal tunnel release. 2. Right ulnar nerve transposition, submuscular Description of Surgical Findings:: Complete release transverse carpal ligament. On releasing the ulnar nerve there was not a large band of tissue. Patient did have previous examination for subluxation of ulnar nerve. While we were flexing the elbow after the release there was significant subluxation of the ulnar nerve at 90 degrees flexion. Based on our findings of no impressive area of compression and his impressive ulnar nerve subluxation we like to proceed with the ulnar nerve transposition as it is likely his ulnar nerve symptoms are from subluxing nerve. outdoor pursuits instructor: Ellie Montez Type of Anesthesia:: General Anesthesiologist: Marc Dodge Special Medications: Ancef Estimated Blood Loss (mL): 10 Fluids Replaced: 950 mL crystalloid Description of Procedure: Brief history operative indications: 53-year-old male with history of ulnar and median nerve compression-like symptoms patient wished to proceed with right open carpal tunnel release and ulnar nerve release with possible transposition.. After discussing risks and benefits including but not limited to blood loss, DVTs, PEs, neurovascular da mage, infection, hematoma and general risk of anesthesia, the patient demonstrated understanding wish to proceed with right open carpal tunnel release and ulnar nerve release with possible transposition. Patient understands transposition will require a longer recovery. Procedure: On the date of the procedure, the patient's right upper extremity was marked in the preoperative area. Patient was taken back to the operating room, where they were transferred to the bed in the supine position.. Patient was given light sedation. All bony prominences are identified well-padded. Anesthesia assumed control C-spine and airway and remained in control throughout the remainder the procedure. The right upper extremity was prepped in sterile fashion. Surgeon then scrub. Upon reentering the room, the right upper extremity was prepped in a standard orthopedic fashion. A timeout was called and everyone agreed upon the side, the site, the procedure to be performed, patient identity and antibiotics given. A sterile tourniquet was placed on the upper arm. The incisions were marked out. Esmarch bandage was used to exsanguinate the extremity and tourniquet was placed with 250 mmHg. Our attention was directed towards the wrist where the carpal tunnel incision was taken at the skin subtenons tissue fat down to fascia. Fascia was then lightly tethered until the median nerve was visible. A [place] was placed proximally and distally, and then scissors were placed proximally and distally to release the transverse carpal ligament. During the release the others were never completely closed. The [place] was then placed proximally and distally once more to verify the transverse carpal ligament had been adequately released. The wound was then copiously irrigated out with normal saline. Wound was then closed using 3-0 nylon suture. 10 cc of 50-50 mixture of 1% lidocaine and 0.5% Sensorcaine without epinephrine injection was given. Attention was then directed towards the elbow where the ulnar nerve incision was taken through skin. Blunt dissection was taken down through subtenons tissue. Proximally we were able to identify the nerve just above the elbow. As we traced it down around the elbow we were able to release it however there was not a robust band of tissue over the cubital tunnel. Release it down into the forearm musculature and along up into the upper arm. Once we felt was adequately released we then took the elbow through range of motion. Patient had very impressive subluxation of the ulnar nerve which likely explain his symptoms without a distinct area of compression or robust cubital tunnel. At this time we elected to proceed with the ulnar nerve transposition. We plan for submuscular transposition. A stairstep cut was made in the forearm musculature at its origin and we dissected down to the muscle. Hemostasis was obtained. At this time we placed the nerve in the trough and took the elbow through range of motion. We finished relieving any areas of compression or tension on the nerve. Once this was done #1 Vicryl was used to close the fascia over the nerve. We again took the elbow through range of motion and felt we had adequately relieved all areas of tension or compression on the nerve. At this time the wound was copiously irrigated out normal saline the patient was closed with 2-0 Vicryl final skin closure was done with nylon and Steri-Strips. Xeroform dressing was placed, sterile dressing was placed, compressive dressing was placed. Tourniquet was let down. A padded posterior splint was placed. Patient was awakened by anesthesia and transferred to the PACU for recovery. Postoperative plan: The patient will follow up in 2 weeks for removal splint removal sutures. Patient will be nonweightbearing for a total of 6 weeks. He will begin range of motion exercises and physical therapy to his first postoperative visit with strengthening at his 6-week postoperative visit. - Complications No intraoperative complications - Admit VTE Documentation VTE Present on Admission: No VTE Mechan Device Prophylaxis: SCD's VTE Pharm Prophylaxis ordered?: No Reason prophylaxis not ordered:: Treatment Not Indicated
[2019-01-24 08:47] VITALS: BP 111/74; BP 129/79; PULSE 75; RESP 16; TEMP 36.7; O2SAT 92
[2019-01-24] MEDS: Ketorolac 30 MG/ML Syringe IV (08:58)
[2019-01-24 09:00] VITALS: BP 111/74; BP 113/77; PULSE 57; RESP 16; O2SAT 92
[2019-01-24 09:12] VITALS: BP 111/74; BP 97/60; RESP 16; TEMP 36.6; O2SAT 94
[2019-01-24 10:00] VITALS: BP 111/74; BP 84/57; PULSE 52; RESP 16; TEMP 35.8; O2SAT 92
[2019-01-24 10:27] VITALS: BP 100/60; BP 111/74; PULSE 54; RESP 16; O2SAT 92
== END 2019-01-24 10:38 | disposition home or self-care (01) ==
LOC: SDC 05:32 → AC 05:32
PROVIDERS: Family Provider Family Medicine; PCP Family Medicine; Referring Provider Specialist; Visit Provider Specialist
PROC: (CPT 64721; principal; 2019-01-24 07:00)
DX: G56.03 Carpal tunnel syndrome, bilateral upper limbs (principal); G56.21 Lesion of ulnar nerve, right upper limb; F17.200 Nicotine dependence, unspecified, uncomplicated
CPT/HCPCS: 64718; 64721; J7120; J2405

== ENCOUNTER → 2019-07-12 09:53 | Outpatient (CLI) | payer BC, SELFPAY ==
[2019-07-12 12:29] LABS: ALB/GLOB Ratio 1.1 RATIO (0.9-2.4); AST(SGOT) 13 U/L (15-37); Alanine Aminotransfer ALT/SGPT 19 U/L (16-61); Albumin, Serum 3.7 g/dL (3.2-5.0); Alkaline Phosphatase 99 U/L (45-117); Anion Gap 4 (5-15); BUN 17 mg/dL (7-18); BUN/Creat Ratio 21.2 RATIO (10-20); Calcium,Total 8.8 mg/dL (8.5-10.1); Chloride 109 mmol/L (98-107); EST Glomerular Filtration Rate 103 mL/min (>60); Est Glom Filt Rate - Afr Amer 125 mL/min (>60); Globulin 3.4 g/dL (2.2-4.2); Glucose 101 mg/dL (74-106); Potassium 4.3 mmol/L (3.5-5.1); Protein, Total 7.1 g/dL (6.4-8.2); Sodium Level 140 mmol/L (136-145)
[2019-07-12 15:07] LABS: Absolute Lymphocyte Count 1.77 X10^3/uL (0.83-4.51); Absolute Neutrophil Count 5.8 X10^3/uL (2.0-7.7); Basophil# 0.05 X10^3/uL; Basophil% 0.6 % (0-1); Eosinophil# 0.29 X10^3/uL; Eosinophils% 3.3 % (0-5); Hematocrit 48.2 % (40-54); Lymphocyte # 1.77 X10^3/ul (4.0); Mean Corp Hgb Conc 33.2 g/dL (32-36); Mean Corpuscular Hgb 29.7 pg (27.0-32.0); Mean Corpuscular Volume 89.6 fL (80-94); Mean Platelet Vol. 9.8 fl (6.2-12.0); Monocyte# 0.89 X10^3/uL; Monocyte% 10.1 % (0-10); NRBC Flagged by Analyzer 0 % (0-5); Neutrophil # 5.81 X10^3/uL (2.7-7.7); Neutrophil % 65.7 % (47-70); Platelet Count 263 K/mm3 (150-450); RBC Distribution Width SD 42.7 fl (35.1-43.9); Red Blood Count 5.38 M/mm3 (4.6-6.2); White Blood Count 8.8 K/mm3 (4.4-11.0)
== END ==
PROVIDERS: PCP Family Medicine; Referring Provider Family Medicine; Visit Provider Family Medicine
DX: F17.200 Nicotine dependence, unspecified, uncomplicated (principal)
CPT/HCPCS: 36415; 80053; 85025

== ENCOUNTER 2020-06-19 16:54 | Outpatient (RCR) | payer BC, SELFPAY ==
[2020-06-19] MEDS: COVID-19 VACC, MRNA(PFIZER)/PF 30 MCG/0.3 ML SYRINGE IM (08:09)
[2020-07-10] MEDS: COVID-19 VACC, MRNA(PFIZER)/PF 30 MCG/0.3 ML SYRINGE IM (07:48)
== END 2020-06-19 23:59 ==
LOC: IMMUN 16:54
PROVIDERS: PCP Family Medicine; Visit Provider Family Medicine
DX: Z23 Encounter for immunization (principal)
CPT/HCPCS: 0001A; 0002A; 91300

== ENCOUNTER → 2022-01-26 | Outpatient (CLI) | payer MEDICARE, SELFPAY ==
--- NOTE | 2022-01-26 15:42 | CT_ITS ---
STUDY: LOW DOSE CT LUNG CANCER SCREENING REASON FOR EXAM: Male, 66 years old. Current smoker. 5-7 cigarettes a day for 55 years. RADIATION DOSAGE (If Supplied By Facility): CTDIvol = ( 3.02 ) mGy, DLP = ( 98.92 ) mGycm TECHNIQUE: No contrast was administered. Low dose technique was utilized (average mAS-38 and kVp 120). 1.25 mm axial source images with a slice interval of 1.25-mm were reconstructed in lung windows. 2.5 mm axial source images with a slice interval of 2.5-mm were reconstructed in lung windows. 5.0 mm axial source images with a slice interval of 5.0-mm were reconstructed in soft tissue windows. COMPARISON: CT of the chest, 06/29/2018. NODULES: Total lung nodules (excluding granulomas): 0 Emphysema: No Endobronchial lesion: No Aorta: Normal CORONARY ARTERIES: Coronary artery calcification none Heart: Normal Pulmonary artery: Normal Mediastinal nodes: None Other chest and abdominal findings: Degenerative changes of the thoracic spine. CT/Low Dose CT Lung Screening IMPRESSION: Lung-RADS category 1 - Continue annual screening with LDCT in 12 months. IMPORTANT NOTES FOR USE: ACR Lung-RADS Version 1.1 Assessment Categories Release Date: 2018 Category: Coded 0-4 bases on nodule(s) with highest degree of suspicion. Negative screen is defined as categories 1 and 2; a positive screen is defined as categories 3 and 4. Category 3 and 4A nodules that are unchanged on interval CT should be coded as category 2, and individuals returned to screening in 12 months. Category 4X: Category 3 or 4 nodules with additional imaging findings that increase the suspicion of lung cancer, such as spiculation, GGN that doubles in size in 1 year, enlarged lymph notes, etc. Category Modifiers: S (significant finding unrelated to lung cancer) Electronically Signed: Neptali Hollis DO at 18:48 EDT Reading Location ID and State: [address] [place] [address] Tel [phone], Service support ,
== END | disposition home or self-care (01) ==
PROVIDERS: PCP Family Medicine; Referring Provider Family Medicine; Visit Provider Family Medicine
DX: Z87.891 Personal history of nicotine dependence (principal)
CPT/HCPCS: 71271

== ENCOUNTER 2023-01-21 16:34 | Outpatient (CLI) | payer MEDICARE, SELFPAY ==
[2023-01-21 17:27] LABS: Absolute Lymphocyte Count 1.89 X10^3/uL (0.83-4.51); Absolute Neutrophil Count 4.8 X10^3/uL (2.0-7.7); Basophil# 0.04 X10^3/uL; Basophil% 0.5 % (0-1); Eosinophil# 0.14 X10^3/uL; Eosinophils% 1.9 % (0-5); Hematocrit 48.5 % (40-54); Lymphocyte # 1.89 X10^3/ul (0.83-4.51); Lymphocyte % 25.3 % (19-41); Mean Corpuscular Hgb 30.5 pg (27.0-32.0); Mean Corpuscular Volume 92.4 fL (80-94); Mean Platelet Vol. 9.5 fl (6.2-12.0); NRBC Flagged by Analyzer 0 % (0-5); Neutrophil % 64.2 % (47-70); Platelet Count 259 K/mm3 (150-450); RBC Distribution Width CV 13.4 % (11.6-14.6); Red Blood Count 5.25 M/mm3 (4.6-6.2); White Blood Count 7.5 K/mm3 (4.4-11.0)
[2023-01-21 18:20] LABS: AST(SGOT) 14 U/L (15-37); Alanine Aminotransfer ALT/SGPT 17 U/L (16-61); Albumin, Serum 3.7 g/dL (3.2-5.0); Alkaline Phosphatase 89 U/L (45-117); Anion Gap 6 (5-15); BUN 16 mg/dL (7-18); BUN/Creat Ratio 18.6 RATIO (10-20); Calcium,Total 8.5 mg/dL (8.5-10.1); Chloride 106 mmol/L (98-107); Cholesterol 155 mg/dL (200); Creatinine, Serum 0.86 mg/dL (0.70-1.30); EST Glomerular Filtration Rate 94 mL/min (>60); Est Glom Filt Rate - Afr Amer 113 mL/min (>60); Globulin 3.7 g/dL (2.2-4.2); Glucose 93 mg/dL (74-106); High Density Lipoprotein 48 mg/dL; PSA,Total - Annual Screen 1.53 ng/mL (0.00-4.00); Potassium 4.1 mmol/L (3.5-5.1); Protein, Total 7.4 g/dL (6.4-8.2); Sodium Level 139 mmol/L (136-145)
== END 2023-01-21 23:59 | disposition home or self-care (01) ==
PROVIDERS: PCP Family Medicine; Visit Provider Family Medicine
DX: Z12.5 Encounter for screening for malignant neoplasm of prostate (principal); F17.200 Nicotine dependence, unspecified, uncomplicated; Z13.220 Encounter for screening for lipoid disorders; E66.9 Obesity, unspecified
CPT/HCPCS: 36415; 80053; 82465; 83718; 84153; 85025; G0103

== ENCOUNTER → 2023-02-18 | Outpatient (CLI) | payer MEDICARE, SELFPAY ==
--- NOTE | 2023-02-18 14:32 | CT_ITS ---
STUDY: LOW DOSE CT LUNG CANCER SCREENING REASON FOR EXAM: Male, 67 years old. and gt; 30years tobacco use, ongoing tobacco RADIATION DOSAGE (If Supplied By Facility): CTDIvol = ( 4.02 ) mGy, DLP = ( 120.84 ) mGycm TECHNIQUE: No contrast was administered. Low dose technique was utilized (average mAS-38 and kVp 120). 1.25 mm axial source images with a slice interval of 1.25-mm were reconstructed in lung windows. 2.5 mm axial source images with a slice interval of 2.5-mm were reconstructed in lung windows. 5.0 mm axial source images with a slice interval of 5.0-mm were reconstructed in soft tissue windows. COMPARISON: 01/26/2022 Emphysema: Mild emphysema. 1.5 cm bilobed noncalcified nodule in the right middle lobe of the lungs and chest CT with contrast, PET/CT, tissue sampling, or clinical evaluation is recommended. No other noncalcified nodule or mass. Endobronchial lesion: None Aorta: No aortic aneurysm. CORONARY ARTERIES: Coronary artery calcification is seen. Heart: No cardiomegaly. Pulmonary artery: Normal Mediastinal nodes: Normal Other chest and abdominal findings: Mild dextroscoliosis thoracic spine with degenerative disc disease. CT/Low Dose CT Lung Screening IMPRESSION: Lung-RADS category 4B - Chest CT with or without contrast, PET/CT and/or tissue sampling can be obtained depending on the probability of malignancy and comorbidities. IMPORTANT NOTES FOR USE: ACR Lung-RADS Version 1.1 Assessment Categories Release Date: 2018 Category: Coded 0-4 bases on nodule(s) with highest degree of suspicion. Negative screen is defined as categories 1 and 2; a positive screen is defined as categories 3 and 4. Category 3 and 4A nodules that are unchanged on interval CT should be coded as category 2, and individuals returned to screening in 12 months. Category 4X: Category 3 or 4 nodules with additional imaging findings that increase the suspicion of lung cancer, such as spiculation, GGN that doubles in size in 1 year, enlarged lymph notes, etc. Category Modifiers: S (significant finding unrelated to lung cancer) Electronically Signed: Jaret Davis MD at 0:30 EST ,
== END | disposition home or self-care (01) ==
LOC: CT 14:30
PROVIDERS: PCP Family Medicine; Referring Provider Family Medicine; Visit Provider Family Medicine
DX: F17.210 Nicotine dependence, cigarettes, uncomplicated (principal)
CPT/HCPCS: 71271

== ENCOUNTER → 2023-05-05 | Outpatient (CLI) | payer MEDICARE, SELFPAY ==
--- NOTE | 2023-05-06 10:42 | PFT ---
INTRODUCTION: The patient is a 67-year-old male who presents for pulmonary function studies secondary to a diagnosis of nicotine dependency. Respiratory therapy reported good patient effort. Bronchodilators were used during testing. INTERPRETATION: Forced expiration spirometry demonstrates no evidence of a large airways obstructive ventilatory defect. There was no significant response to aerosolized bronchodilators. Spirograms are of good quality and plateau normally. Body plethysmography was performed and revealed lung volumes to be within normal limits. Diffusing capacity by single breath CO was also within normal limits. IMPRESSION: Grossly normal pulmonary function studies.
== END | disposition home or self-care (01) ==
LOC: PSN 10:31
PROVIDERS: PCP Family Medicine; Referring Provider Internal Medicine Critical Care Medicine; Visit Provider Internal Medicine Critical Care Medicine
DX: R91.8 Other nonspecific abnormal finding of lung field (principal); F17.200 Nicotine dependence, unspecified, uncomplicated
CPT/HCPCS: 94060; 94726; 94729

== ENCOUNTER → 2024-01-24 | Outpatient (CLI) | payer MEDICARE, SELFPAY ==
[2024-01-24 12:47] LABS: Absolute Lymphocyte Count 1.32 X10^3/uL (0.83-4.51); Absolute Neutrophil Count 4.1 X10^3/uL (2.0-7.7); Basophil# 0.06 X10^3/uL; Eosinophil# 0.08 X10^3/uL; Eosinophils% 1.3 % (0-5); Hematocrit 50.1 % (40-54); Hemoglobin 16.3 g/dL (13.0-16.5); Lymphocyte # 1.32 X10^3/ul (0.83-4.51); Lymphocyte % 21.3 % (19-41); Mean Corp Hgb Conc 32.5 g/dL (32-36); Mean Corpuscular Hgb 29.9 pg (27.0-32.0); Mean Corpuscular Volume 91.8 fL (80-94); Mean Platelet Vol. 9.5 fl (6.2-12.0); Monocyte# 0.59 X10^3/uL; Monocyte% 9.5 % (0-10); NRBC Flagged by Analyzer 0 % (0-5); Neutrophil # 4.12 X10^3/uL (2.7-7.7); Neutrophil % 66.6 % (47-70); Platelet Count 242 K/mm3 (150-450); RBC Distribution Width CV 13.8 % (11.6-14.6); RBC Distribution Width SD 46.7 fl (35.1-43.9); Red Blood Count 5.46 M/mm3 (4.6-6.2); White Blood Count 6.2 K/mm3 (4.4-11.0)
[2024-01-24 13:49] LABS: AST(SGOT) 14 U/L (15-37); Alanine Aminotransfer ALT/SGPT 20 U/L (16-61); Albumin, Serum 3.8 g/dL (3.2-5.0); Alkaline Phosphatase 96 U/L (45-117); Anion Gap 5 (5-15); BUN 12 mg/dL (7-18); BUN/Creat Ratio 12.5 RATIO (10-20); Calcium,Total 8.9 mg/dL (8.5-10.1); Chloride 108 mmol/L (98-107); Cholesterol 165 mg/dL (200); Creatinine, Serum 0.96 mg/dL (0.70-1.30); EST Glomerular Filtration Rate 83 mL/min (>60); Est Glom Filt Rate - Afr Amer 100 mL/min (>60); Globulin 3.9 g/dL (2.2-4.2); Glucose 100 mg/dL (74-106); High Density Lipoprotein 51 mg/dL; Potassium 4.1 mmol/L (3.5-5.1); Protein, Total 7.7 g/dL (6.4-8.2); Sodium Level 139 mmol/L (136-145); Triglycerides 80 mg/dL; Very Low Density Lipoprotein 16 mg/dL (5-40)
== END | disposition home or self-care (01) ==
LOC: MFPLAB 09:40
PROVIDERS: PCP Family Medicine; Visit Provider Family Medicine
DX: E66.812 Obesity, class 2 (principal)
CPT/HCPCS: 36415; 80053; 80061; 84443; 85025

== ENCOUNTER → 2024-02-21 | Outpatient (CLI) | payer MEDICARE, SELFPAY ==
--- NOTE | 2024-02-21 07:25 | CT_ITS ---
STUDY: LOW DOSE CT LUNG CANCER SCREENING REASON FOR EXAM: Male, 68 years old. hx of cigarette use/abuse. stopped 2022. and gt; 40 pack years RADIATION DOSAGE (If Supplied By Facility): CTDIvol = ( 3.02 ) mGy, DLP = ( 97.42 ) mGycm TECHNIQUE: No contrast was administered. Low dose technique was utilized (average mAS-38 and kVp 120). 1.25 mm axial source images with a slice interval of 1.25-mm were reconstructed in lung windows. 2.5 mm axial source images with a slice interval of 2.5-mm were reconstructed in lung windows. 5.0 mm axial source images with a slice interval of 5.0-mm were reconstructed in soft tissue windows. COMPARISON: Comparison is made with prior study dated February 18, 2023 and January 26, 2022. NODULES: Slight increase in size of the bilobed noncalcified nodule in the right middle lobe posteriorly. The margins are irregular. Correlation with the PET scan recommended. Emphysema: Increased markings at the right lung base suggestive of scarring and/or atelectasis. Endobronchial lesion: None Aorta: Mild atherosclerotic plaque formation of the aortic arch. CORONARY ARTERIES: Coronary artery calcification is seen. Heart: Unremarkable Pulmonary artery: Unremarkable Mediastinal nodes: Small mediastinal lymph nodes. Other chest and abdominal findings: Degenerative changes of the thoracic spine. CT/Low Dose CT Lung Screening IMPRESSION: Lung-RADS category 4B - Chest CT with or without contrast, PET/CT and/or tissue sampling can be obtained depending on the probability of malignancy and comorbidities. IMPORTANT NOTES FOR USE: ACR Lung-RADS Version 1.1 Assessment Categories Release Date: 2018 Category: Coded 0-4 bases on nodule(s) with highest degree of suspicion. Negative screen is defined as categories 1 and 2; a positive screen is defined as categories 3 and 4. Category 3 and 4A nodules that are unchanged on interval CT should be coded as category 2, and individuals returned to screening in 12 months. Category 4X: Category 3 or 4 nodules with additional imaging findings that increase the suspicion of lung cancer, such as spiculation, GGN that doubles in size in 1 year, enlarged lymph notes, etc. Category Modifiers: S (significant finding unrelated to lung cancer) Electronically Signed: Aneudy Garvin MD at 10:45 EST ,
== END | disposition home or self-care (01) ==
LOC: CT 07:24
PROVIDERS: PCP Family Medicine; Referring Provider Family Medicine; Visit Provider Family Medicine
DX: F17.211 Nicotine dependence, cigarettes, in remission (principal)
CPT/HCPCS: 71271

== ENCOUNTER → 2024-03-20 | Outpatient (CLI) | payer MEDICARE, SELFPAY ==
--- NOTE | 2024-03-20 08:00 | PET_ITS ---
EXAMINATION: FDG PET-CT INDICATIONS: A 68-year-old male with history of pulmonary nodularity. COMPARISON EXAMINATION: CT of the chest report dated 02/21/24 TECHNIQUE: Following the intravenous administration of 13.34 mCi of F-18 deoxyglucose via the right forearm, multiplanar image acquisitions of the neck, chest, abdomen and pelvis to level of mid thigh, obtained at one hour post radiopharmaceutical administration contemporaneously interpreted with the current CT of the neck, chest, abdomen and pelvis, to level of mid thigh, dated 03/20/[address] of the chest report dated 02/21/24 reveals: BLOOD GLUCOSE LEVEL:?? 89 mg/dl?HEIGHT:?67 inches?WEIGHT: 288 lbs. FINDINGS: HEAD/NECK: There is no evidence of abnormal increased glucose metabolism in the pharyngeal mucosal space, parapharyngeal space, bilateral-lateral and anterior neck, hypopharynx and distribution of the laryngeal structures. The visualized portion of the cerebral cortical-subcortical structures demonstrate symmetric and preserved glucose metabolism. CHEST: There is no quantitative scintigraphic evidence of abnormal increased glucose metabolism within the context of the bilateral hemithorax pulmonary parenchyma, right and left hemithorax pleural interface, mediastinal structures and right-left thoracic perihilum. Pertinent chest CT findings are as follows. A linear parenchymal density defined in the right lower posterior lung field, right lower lobe is non-glucose avid. There is atherosclerotic calcification defined in the thoracic aorta without evidence of dilatation-aneurysm formation. Coronary arterial calcification is observed. Right and left axillary and scattered mediastinal soft tissue densities are ametabolic. ABDOMEN/PELVIS: Normal physiologic distribution of the radiopharmaceutical is apparent in the hepatic and splenic parenchyma, both renal units, bladder and visualized intestinal tract. Pertinent abdomen and pelvis CT findings are as follows. There is atherosclerotic calcification defined in the abdominal aorta without evidence of dilatation-aneurysm formation. Pelvic arterial calcification is observed. Colonic diverticulosis is demonstrated without evidence of diverticulitis. Fat containing bilateral inguinal hernias are demonstrated. Right and left inguinal soft tissue densities demonstrate no evidence of increased tracer uptake. There is calcification noted within the prostate gland. SKELETAL: Degenerative changes are noted in the cervical, thoracic and lumbar spine without evidence of increased radiopharmaceutical concentration. PET/PET/CT Tumor Base -Thigh Init IMPRESSION: 1. NEGATIVE EXAMINATION. There is no definitive quantitative scintigraphic evidence of viable neoplasm. 2. Meticulous attention paid to the right lower posterior lung zone demonstrates no evidence of increased tracer uptake. 3. Metabolic and/or anatomic stability may be ensured in the right lower lung field abnormality with repeat FDG PET study and/or CT of the thorax in 3-6 months if clinically indicated. (Xiu, Journal of Nuclear Medicine 45:88, P2004 Otilio, Seminars in Thoracic and Cardiovascular Surgery 14:292, 2001). Electronic Signature Jaret Wallace D.O. Accurate Quantification of SUVs for this report are calculated using the exclusive [employer]. (U.S. Patent No. [phone] B2 [phone] [place] patent [phone]). Standardization and correction of the FDG SUV metric via [employer] technology allow for vendor non-specific objective quantitative examination comparison and optimization of the sensitivity and specificity of the FDG PET-CT examination. [email or web address] Electronically Signed: Jaret Wallace DO at 23:01 EST ,
== END | disposition home or self-care (01) ==
PROVIDERS: PCP Family Medicine; Referring Provider Family Medicine; Visit Provider Family Medicine
DX: R91.8 Other nonspecific abnormal finding of lung field (principal)
CPT/HCPCS: 78815; A9552

== ENCOUNTER → 2025-02-21 | Outpatient (CLI) | payer MEDICARE, SELFPAY ==
--- NOTE | 2025-02-21 06:29 | CT_ITS ---
PROCEDURE: LOW DOSE CT LUNG SCREENING 02/21/2025 REASON FOR EXAM: HX TOBACCO, > 30YEARS, CESSATION 2 YEARS TECHNIQUE: Procedure Code: [id number] Modality: CT Procedure: LOW DOSE CT LUNG SCREENING Coronal and Sagittal reconstruction series were provided. One or more dose reduction techniques were used (e.g., Automated exposure control, adjustment of the mA and/or kV according to patient size, use of iterative reconstruction technique). REFERENCE LINK: [facility] Lung-RADS RADIATION DOSE SUMMARY: CTDlvol: 4.0 mGy DLP: 129.9 mGycm COMPARISON: CT low-dose lung/04/03: PET-CT 03/20/2024 FINDINGS: PULMONARY NODULES: (Only nodules >3mm are reported) Nodules described below are on series 2 unless otherwise specified. Pulmonary Nodules: Stable nodules in the right lower lobe measuring up to 2.4 cm. Hardware:N/a Lymph Nodes:Unremarkable Heart and Vasculature:Normal heart size Coronary Artery Calcifications: Absent Lungs and Airways: Mild emphysematous changes are present. Pleura:Unremarkable Upper Abdomen:Unremarkable Bones:Unremarkable CT/Low Dose CT Lung Screening IMPRESSION: No new suspicious pulmonary nodules. Coronary artery calcification (CAC) is is absent Lung-RADS Category: 2 BENIGN (BASED ON IMAGING FEATURES OR INDOLENT BEHAVIOR). RECOMMEND 12-MONTH SCREENING LDCT. Other Significant Findings: Unremarkable Reading Location: [id number]
--- OUTSIDE RECORDS SUMMARY | 2025-02-21 06:31 | XMS RPT_ITS | CCD ---
Author Organization [facility] Inform ion Partnership [facility] Care Team Providers Care Manufacturing Assembler Name Role Phone DAVID MATA, ESEQUIEL Wyatt Primary Care Physician [phone] JOSE MATA, DR LES Wyatt Attending Steffi Russo MD, ESEQUIEL Wyatt Primary Care Unavailable JOSE MATA, DR LES Wyatt Attending Unavailab ute ALLEN APRN-OPERATIONS CONTROLLER, GÓMEZ Otto Consulting Vince HERNANDEZ MD, ESEQUIEL Wyatt Primary Care Unavailable JOSE MATA, DR LES Wyatt Admitting Unavailab Esequiel Russo Attending Unavailable Esequiel Hernandez Primary Care Unavailable Esequiel Hernandez Referring Unavailable David, Esequiel Primary Care Unavailable David, Esequiel Referring Unavailable David, Esequiel Attending Unavailable David, Esequiel Attending Unavailable David, Esequiel Primary Care Unavailable Esequiel Hernandez Referring Unavailable Medications Current Medications Medication Drug Class(es) Dates Sig (Normalized) Sig (Original) acetaminophen 500 mg oral tablet (4 sources) Start: 03-23-2023 End: 04-06-2023 take 1 tablet by mouth once daily acetaminophen 500 mg oral tablet Dose : 1,000 mg = 2 tab(s), Oral, TID, PRN as needed for pain, not to exceed 3000 mg/day, X 14 day(s), # 100 tab(s), 0 Refill(s), 04/06/23 6:58:00 AM EST, Pharmacy: [facility], 172.7, cm, 03/22/23 16:36:00 EST, Height, kg, 03/22/23 16:36:00 EST, Dosing Weight Start Date: 03/23/23 Stop Date: 04/06/23 Status: Ordered Start: 10-07-2017 End: 10-26-2017 take 500-1000 mg by mouth every six hours as needed Acetaminophen Discontinued 500 - 1000 MG PO EVERY 6 HOURS NEEDED October 06, 2017 11:00pm October 26, 2017 6:25am aspirin 81 mg delayed release oral tablet (1 source) Platelet Aggregation Inhibitor, Nonsteroidal Anti-inflammatory Drug Start: 03-23-2023 End: 04-06-2023 take 1 tablet by mouth twice daily aspirin 81 mg oral delayed release tablet Dose : 81 mg = 1 tab(s), Oral, BID, Take 81 mg aspirin twice daily with food for 2 weeks postoperatively for DVT prophylaxis., # 28 tab(s), 0 Refill(s), Pharmacy: [facility], 172.7, cm, 03/22/23 16:36:00 EST, Height, kg, 03/22/23 16:36:00 EST, Dosing Weight Start Date: 03/23/23 Stop Date: 04/06/23 Status: Ordered docusate sodium 50 mg / sennosides, care home 8.6 mg oral tablet (1 source) Start: 03-23-2023 End: 03-26-2023 take 1 tablet by mouth twice daily Senokot S 50 mg-8.6 mg oral tablet Dose = 2 tab(s), Oral, BID, Take until first bowel movement, then as needed, X 3 day(s), # 12 tab(s), 0 Refill(s), Pharmacy: [facility], 172.7, cm, 03/22/23 16:36:00 EST, Height, kg, 03/22/23 16:36:00 EST, Dosing Weight Start Date: 03/23/23 Stop Date: 03/26/23 Status: Ordered doxycycline monohydrate 100 mg oral capsule (1 source) Tetracycline-class Drug Start: 03-23-2023 End: 04-06-2023 doxycycline monohydrate 100 mg oral capsule Dose : 100 mg = 1 cap(s), Oral, BID, Take for 2 weeks postoperatively, X 14 day(s), # 28 cap(s), 0 Refill(s), 04/06/23 7:00:00 AM EST, Pharmacy: [facility], 172.7, cm, 03/22/23 16:36:00 EST, Height, 93.6, kg, 03/22/23 16:36:00 EST, Dosing Weight Start Date: 03/23/23 Stop Date: 04/06/23 Status: Ordered famotidine 20 mg oral tablet (1 source) Histamine-2 Receptor Antagonist Start: 03-23-2023 End: 04-06-2023 Pepcid 20 mg oral tablet Dose : 20 mg = 1 tab(s), Oral, qDay, # 14 tab(s), 0 Refill(s), Pharmacy: [facility], 172.7, cm, 03/22/23 16:36:00 EST, Height, kg, 03/22/23 16:36:00 EST, Dosing Weight Start Date: 03/23/23 Stop Date: 04/06/23 Status: Ordered meloxicam 7.5 mg oral tablet (1 source) Nonsteroidal Anti-inflammatory Drug Start: 03-23-2023 End: 04-22-2023 Mobic 7.5 mg oral tablet Dose : 7.5 mg = 1 tab(s), Oral, BIDM, Do not take any other nonsteroidal anti-inflammatories while on meloxicam/Mobic, # 60 tab(s), 0 Refill(s), Pharmacy: [facility], 172.7, cm, 03/22/23 16:36:00 EST, Height, kg, 03/22/23 16:36:00 EST, Dosing Weight Start Date: 03/23/23 Stop Date: 04/22/23 Status: Ordered [place] (Nk) (3 sources) Start: 01-08-2019 [place] (Nk) Active January 07, 2019 11:00pm Start: 01-08-2019 [place] (Nk) A ctive January 08, 2019 12:00am oxyCODONE hydrochloride 5 mg oral tablet (1 source) Opioid Agonist Start: 03-23-2023 End: 03-30-2023 take 1-2 tablets by mouth every four hours as needed for pain oxyCODONE 5 mg oral tablet ( IMMEDIATE release ) See Instructions, PRN as needed for pain, 1-2 tab(s) Oral q4h, # 12 tab(s), 0 Refill(s), 03/30/23 7:02:00 AM EST, Pharmacy: [facility], S/p reverse total shoulder arthroplasty, 172.7, cm, 03/22/23 16:36:00 EST, Height, 93.6, kg, 03/22/23 16:36:00 EST, Dosing Weight Start Date: 03/23/23 Stop Date: 03/30/23 Status: Ordered Problems Active Problems Problem Classification Problem Date Documented Da te Episodic/Chronic Osteoarthritis (1 source) Osteoarthritis; Translations: [Unspecified osteoarthritis, unspecified site] Onset: 03-23-2023 Chronic Other connective tissue disease (1 source) Shoulder joint prosthesis present; Translations: [Presence of unspecified artificial shoulder joint] Onset: 03-23-2023 Chronic Substance-related disorders (2 sources) Nicotine dependence, cigarettes, in remission; Translations: [Nicotine dependence, cigarettes, in remission] Onset: 03-01-2024 Chronic Past or Other Problems Problem Classification Problem Date Documented Da te Episodic/Chronic Other lower respiratory disease (1 source) Other nonspecific abnormal finding of lung field; Translations: [Other nonspecific abnormal finding of lung field] Onset: 03-31-2024 Episodic Results Test Name Value Interpretation Reference Range Facility PET/CT Tumor Base -Thigh Ini [facility] 03-20-2024 PET/CT Tumor Base -Thigh Init [facility] Imaging Services [address] [place] [id number] PET/CT Tumor Base -Thigh Init MR#: [id number] Acct: [id number] Name: ELAINE BURGOS Rep #: [id number] : 1955 M 68 From: Jaret Hammond PCP: Dr. Esequiel Hernandez MD Status: [facility] Study: PET/CT Tumor Base -Thigh Init Date of Exam: Exam# [id number] Ordering Dr: Esequiel Hernandez MD [id number] EXAMINATION: FDG PET-CT INDICATIONS: A 68-year-old male with history of pulmonary nodularity. COMPARISON EXAMINATION: CT of the chest report dated 02/21/24 TECHNIQUE: Following the intravenous administration of 13.34 mCi of F-18 deoxyglucose via the right forearm, multiplanar image acquisitions of the neck, chest, abdomen and pelvis to level of mid thigh, obtained at one hour post radiopharmaceutical administration contemporaneously interpreted with the current CT of the neck, chest, abdomen and pelvis, to level of mid thigh, dated 03/20/[address] of the chest report dated 02/21/24 reveals: BLOOD GLUCOSE LEVEL:?? 89 mg/dl?HEIGHT:?67 inches?WEIGHT: 288 lbs. FINDINGS: HEAD/NECK: There is no evidence of abnormal increased glucose metabolism in the pharyngeal mucosal space, parapharyngeal space, bilateral-lateral and anterior neck, hypopharynx and distribution of the laryngeal structures. The visualized portion of the cerebral cortical-subcortical structures demonstrate symmetric and preserved glucose metabolism. CHEST: There is no quantitative scintigraphic evidence of abnormal increased glucose metabolism within the context of the bilateral hemithorax pulmonary parenchyma, right and left hemithorax pleural interface, mediastinal structures and right-left thoracic perihilum. Pertinent chest CT findings are as follows. A linear parenchymal density defined in the right lower posterior lung field, right lower lobe is non-glucose avid. There is atherosclerotic calcification defined in the thoracic aorta without evidence of dilatation-aneurysm formation. Coronary arterial calcification is observed. Right and left axillary and scattered mediastinal soft tissue densities are ametabolic. ABDOMEN/PELVIS: Normal physiologic distribution of the radiopharmaceutical is apparent in the hepatic and splenic parenchyma, both renal units, bladder and visualized intestinal tract. Pertinent abdomen and pelvis CT findings are as follows. There is atherosclerotic calcification defined in the abdominal aorta without evidence of dilatation-aneurysm formation. Pelvic arterial calcification is observed. Colonic diverticulosis is demonstrated without evidence of diverticulitis. Fat containing bilateral inguinal hernias are demonstrated. Right and left inguinal soft tissue densities demonstrate no evidence of increased tracer uptake. There is calcification noted within the prostate gland. SKELETAL: Degenerative changes are noted in the cervical, thoracic and lumbar spine without evidence of increased radiopharmaceutical concentration. PET/PET/CT Tumor Base -Thigh Init IMPRESSION: 1. NEGATIVE EXAMINATION. There is no definitive quantitative scintigraphic evidence of viable neoplasm. 2. Meticulous attention paid to the right lower posterior lung zone demonstrates no evidence of increased tracer uptake. 3. Metabolic and/or anatomic stability may be ensured in the right lower lung field abnormality with repeat FDG PET study and/or CT of the thorax in 3-6 months if clinically indicated. (Xiu, Journal of Nuclear Medicine 45:88, P2004 Otilio, Seminars in Thoracic and Cardiovascular Surgery 14:292, 2001). Electronic Signature Jaret Wallace D.O. Accurate Quantification of SUVs for this report are calculated using the exclusive [employer]. (U.S. Patent No. [phone] B2 [phone] [place] patent [phone]). Standardization and correction of the FDG SUV metric via ACCUQUAN technology allow for vendor non-specific objective quantitative examination comparison and optimization of the sensitivity and specificity of the FDG PET-CT examination. [email or web address] Electronically Signed: Jaret Wallace DO at 23:01 EST Reading Location ID and State: [facility] / [place] Tel , Service support , CC: Dr. Esequiel Hernandez MD Ebd Teacher: Signed Normal [facility] Low Dose CT Lung Screeningon 02-21-[address] Lung Screening [facility] Imaging Services [address] [place] [address] Lung Screening MR#: [id number] Acct: [id number] Name: ELAINE BURGOS Rep #: [id number] : 1955 M 68 From: Aneudy sanchez MD PCP: Dr. Esequiel Hernandez MD Status: [facility] Study: Low Dose CT Lung Screening Date of Exam: 02/20 Exam# [id number] Ordering Dr: Esequiel Hernandez MD [id number] STUDY: LOW DOSE CT LUNG CANCER SCREENING REASON FOR EXAM: Male, 68 years old. hx of cigarette use/abuse. stopped 2022. and gt; 40 pack years RADIATION DOSAGE (If Supplied By Facility): CTDIvol = ( 3.02 ) mGy, DLP = ( 97.42 ) mGycm TECHNIQUE: No contrast was administered. Low dose technique was utilized (average mAS-38 and kVp 120). 1.25 mm axial source images with a slice interval of 1.25-mm were reconstructed in lung windows. 2.5 mm axial source images with a slice interval of 2.5-mm were reconstructed in lung windows. 5.0 mm axial source images with a slice interval of 5.0-mm were reconstructed in soft tissue windows. COMPARISON: Comparison is made with prior study dated February 18, 2023 and January 26, 2022. NODULES: Slight increase in size of the bilobed noncalcified nodule in the right middle lobe posteriorly. The margins are irregular. Correlation with the PET scan recommended. Emphysema: Increased markings at the right lung base suggestive of scarring and/or atelectasis. Endobronchial lesion: None Aorta: Mild atherosclerotic plaque formation of the aortic arch. CORONARY ARTERIES: Coronary artery calcification is seen. Heart: Unremarkable Pulmonary artery: Unremarkable Mediastinal nodes: Small mediastinal lymph nodes. Other chest and abdominal findings: Degenerative changes of the thoracic spine. CT/Low Dose CT Lung Screening IMPRESSION: Lung-RADS category 4B - Chest CT with or without contrast, PET/CT and/or tissue sampling can be obtained depending on the probability of malignancy and comorbidities. IMPORTANT NOTES FOR USE: ACR Lung-RADS Version 1.1 Assessment Categories Release Date: 2018 Category: Coded 0-4 bases on nodule(s) with highest degree of suspicion. Negative screen is defined as categories 1 and 2; a positive screen is defined as categories 3 and 4. Category 3 and 4A nodules that are unchanged on interval CT should be coded as category 2, and individuals returned to screening in 12 months. Category 4X: Category 3 or 4 nodules with additional imaging findings that increase the suspicion of lung cancer, such as spiculation, GGN that doubles in size in 1 year, enlarged lymph notes, etc. Category Modifiers: S (significant finding unrelated to lung cancer) Electronically Signed: Aneudy Garvin MD at 10:45 EST , CC: Dr. Esequiel Hernandez MD Ebd Teacher: Signed Normal [facility] .Auto Diffon 03-23-2023 Basophil, Absolute 0.0 10 3/mcL Normal 0.0-0.2 [facility] ([place]) Comment on above: Performed By: #### A ROSENDA, BMP, CBC, GFR, ADIFF #### [address] [address] Basophils/100 WBC (Bld) 0.3 % Normal 0.0-2.5 [facility] ([place]) Comment on above: Performed By: #### A ROSENDA, BMP, CBC, GFR, ADIFF #### [address] [address] Eosinophil, Absolute 0.0 10 3/mcL Normal 0.0-0.4 [facility] ([place]) Comment on above: Performed By: #### A ROSENDA, BMP, CBC, GFR, ADIFF #### [address] [address] Eosinophils/100 WBC (Bld) 0.0 % Normal 0.0-7.0 [facility] ([place]) Comment on above: Performed By: #### A ROSENDA, BMP, CBC, GFR, ADIFF #### [address] [address] Lymphocyte, Absolute 1.0 10 3/mcL Normal 0.8-3.9 [facility] ([place]) Comment on above: Performed By: #### A ROSENDA, BMP, CBC, GFR, ADIFF #### [address] [address] Lymphocytes/100 WBC (Bld) 6.7 % Low 10.0-50.0 [facility] ([place]) Comment on above: Performed By: #### A ROSENDA, BMP, CBC, GFR, ADIFF #### [address] [address] Monocyte, Absolute 0.8 10 3/mcL Normal 0.2-1.0 [facility] ([place]) Comment on above: Performed By: #### A ROSENDA, BMP, CBC, GFR, ADIFF #### [address] [address] Monocytes/100 WBC (Bld) 5.6 % Normal 1.7-13.0 [facility] ([place] Comment on above: Performed By: #### A ROSENDA, BMP, CBC, GFR, ADIFF #### [address] [address] Neutrophils/100 WBC (Bld) 87.4 % High 37.0-80.0 [facility] ([place] Comment on above: Performed By: #### A ROSENDA, BMP, CBC, GFR, ADIFF #### [address] [address] .GFRon 03-23-2023 GFR 83 ml/min/1.73sqm Normal [facility] ([place]) Comment on above: Result Comment: GFR Population mean for , Non- Americans Ages 20-29 = 116 mL/min/1.73 sq.m. Ages 30-39 = 107 mL/min/1.73 sq.m. Ages 40-49 = 99 mL/min/1.73 sq.m. Ages 50-59 = 93 mL/min/1.73 sq.m. Ages 60-69 = 85 mL/min/1.73 sq.m. Ages 70+ = 75 mL/min/1.73 sq.m. Chronic Kidney Disease: Less than 60 mL/min/1.73 square meters End Stage Renal Disease: Less than 15 mL/min/1.73 square meters Performed By: #### A ROSENDA, BMP, CBC, GFR, ADIFF #### [address] [address] GFR Non- 69 ml/min/1.73sqm Normal [facility] ([place]) Comment on above: Result Comment: GFR Population mean for , Non- Americans Ages 20-29 = 116 mL/min/1.73 sq.m. Ages 30-39 = 107 mL/min/1.73 sq.m. Ages 40-49 = 99 mL/min/1.73 sq.m. Ages 50-59 = 93 mL/min/1.73 sq.m. Ages 60-69 = 85 mL/min/1.73 sq.m. Ages 70+ = 75 mL/min/1.73 sq.m. Chronic Kidney Disease: Less than 60 mL/min/1.73 square meters End Stage Renal Disease: Less than 15 mL/min/1.73 square meters Performed By: #### A ROSENDA, BMP, CBC, GFR, ADIFF #### [address] [address] .NEUABSon 03-23-2023 Neutrophil, Absolute 12.7 10 3/mcL High 2.9-6.2 [facility] ([place]) Comment on above: Performed By: #### A ROSENDA, BMP, CBC, GFR, ADIFF #### [address] [address] BMPon 03-23-2023 BUN/Creatinine Ratio 10 ratio Normal 7-27 [facility] ([place]) Comment on above: Performed By: #### A ROSENDA, BMP, CBC, GFR, ADIFF #### [address] [address] Calcium [Mass/Vol] 8.3 mg/dL Low 8.4-10.2 [facility] ([place]) Comment on above: Performed By: #### A ROSENDA, BMP, CBC, GFR, ADIFF #### [address] [address] Chloride [Moles/Vol] 106 mmol/L Normal 98-107 [facility] ([place] Comment on above: Performed By: #### A ROSENDA, BMP, CBC, GFR, ADIFF #### [address] [address] CO2 [Moles/Vol] 25 mmol/L Normal 23-31 [facility] ([place] Comment on above: Performed By: #### A ROSENDA, BMP, CBC, GFR, ADIFF #### [address] [address] Creatinine [Mass/Vol] 1.07 mg/dL Normal 0.70-1.30 [facility] ([place]) Comment on above: Performed By: #### A ROSENDA, BMP, CBC, GFR, ADIFF #### [address] [address] Electrolyte Balance 10.0 mEq/L Normal 4.0-15.0 [facility] ([place]) Comment on above: Performed By: #### A ROSENDA, BMP, CBC, GFR, ADIFF #### [address] [address] Glucose [Mass/Vol] 161 mg/dL High 80-115 [facility] ([place] Comment on above: Performed By: #### A ROSENDA, BMP, CBC, GFR, ADIFF #### [address] [address] Potassium [Moles/Vol] 4.9 mmol/L Normal 3.5-5.1 [facility] ([place]) Comment on above: Performed By: #### A ROSENDA, BMP, CBC, GFR, ADIFF #### [address] [address] Sodium [Moles/Vol] 141 mmol/L Normal 136-145 [facility] ([place] Comment on above: Performed By: #### A ROSENDA, BMP, CBC, GFR, ADIFF #### [address] [address] Urea nitrogen [Mass/Vol] 11 mg/dL Normal 7-18 [facility] ([place] Comment on above: Performed By: #### A ROSENDA, BMP, CBC, GFR, ADIFF #### [address] [address] CBCon 03-23-2023 Erythrocyte distribution width (RBC) [Ratio] 13.7 % Normal 11.5-14.5 [facility] ([place] Comment on above: Performed By: #### A ROSENDA, BMP, CBC, GFR, ADIFF #### [address] [address] Hematocrit (Bld) [Volume fraction] 42.1 % Normal 42.0-52.0 [facility] ([place] Comment on above: Performed By: #### A ROSENDA, BMP, CBC, GFR, ADIFF #### [address] [address] Hgb 14.1 G/dL Normal 14.0-18.0 [facility] ([place] Comment on above: Performed By: #### A ROSENDA, BMP, CBC, GFR, ADIFF #### [address] [address] MCH (RBC) [Entitic mass] 30.3 pg Normal 27.0-31.2 [facility] ([place] Comment on above: Performed By: #### A ROSENDA, BMP, CBC, GFR, ADIFF #### [address] [address] MCHC 33.5 G/dL Normal 31.8-35.4 [facility] ([place] Comment on above: Performed By: #### A ROSENDA, BMP, CBC, GFR, ADIFF #### [address] [address] MCV (RBC) [Entitic vol] 90.5 fL Normal 80.0-94.0 [facility] ([place] Comment on above: Performed By: #### A ROSENDA, BMP, CBC, GFR, ADIFF #### [address] [address] Platelet 254 10 3/mcL Normal 130-400 [facility] ([place] Comment on above: Performed By: #### A ROSENDA, BMP, CBC, GFR, ADIFF #### [address] [address] Platelet mean volume (Bld) [Entitic vol] 7.9 fL Normal 7.4-10.4 [facility] ([place] Comment on above: Performed By: #### A ROSENDA, BMP, CBC, GFR, ADIFF #### [address] [address] RBC 4.66 10 6/mcL Normal 4.04-6.13 [facility] ([place] Comment on above: Performed By: #### A ROSENDA, BMP, CBC, GFR, ADIFF #### [address] [address] WBC 14.5 10 3/mcL High 4.6-10.8 [facility] ([place] Comment on above: Performed By: #### A ROSENDA, BMP, CBC, GFR, ADIFF #### [facility] [place] [address] LABORATORYOrdered By: SYSTEM SYSTEM on 03-23-2023 Basophil, Absolute 0.0 103/mcL Normal 0.0 - 0.2 10^3/mcL AO Workflow SS Basophils/100 WBC (Bld) 0.3 % Normal 0.0 - 2.5 % AO Workflow SS Calcium [Mass/Vol] 8.3 mg/dL Low 8.4 - 10. 2 mg/dL AO ADM SS Chloride [Moles/Vol] 106 mmol/L Normal 98 - 10 7 mmol/L AO ADM SS CO2 [Moles/Vol] 25 mmol/L Normal 23 - 31 mmol/L AO ADM SS Creatinine [Mass/Vol] 1.07 mg/dL Normal 0.70 - 1.30 mg/dL AO ADM SS Electrolyte Balance 10.0 mEq/L Normal 4.0 - 15 .0 mEq/L AO ADM SS Eosinophil, Absolute 0.0 103/mcL Normal 0.0 - 0 .4 10^3/mcL AO Workflow SS Eosinophils/100 WBC (Bld) 0.0 % Normal 0.0 - 7.0 % AO Workflow SS Erythrocyte distribution width (RBC) [Ratio] 13.7 % Normal 11.5 - 14.5 % AO Workflow SS GFR/1.73 sq M.predicted among blacks MDRD (S/P/Bld) [Vol rate/Area] 83 ml/min/1.73sqm Invalid Interpretation Code AO Chemistry S Comment on above: Interpretive Data: GFR Population mean for , Non- Americans Ages 20-29 = 116 mL/min/1.73 sq.m. Ages 30-39 = 107 mL/min/1.73 sq.m. Ages 40-49 = 99 mL/min/1.73 sq.m. Ages 50-59 = 93 mL/min/1.73 sq.m. Ages 60-69 = 85 mL/min/1.73 sq.m. Ages 70+ = 75 mL/min/1.73 sq.m. Chronic Kidney Disease: Less than 60 mL/min/1.73 square meters End Stage Renal Disease: Less than 15 mL/min/1.73 square meters GFR/1.73 sq M.predicted among non-blacks MDRD (S/P/Bld) [Vol rate/Area] 69 ml/min/1.73sqm Invalid Interpretation Code AO Chemistry S Comment on above: Interpretive Data: GFR Population mean for , Non- Americans Ages 20-29 = 116 mL/min/1.73 sq.m. Ages 30-39 = 107 mL/min/1.73 sq.m. Ages 40-49 = 99 mL/min/1.73 sq.m. Ages 50-59 = 93 mL/min/1.73 sq.m. Ages 60-69 = 85 mL/min/1.73 sq.m. Ages 70+ = 75 mL/min/1.73 sq.m. Chronic Kidney Disease: Less than 60 mL/min/1.73 square meters End Stage Renal Disease: Less than 15 mL/min/1.73 square meters Glucose [Mass/Vol] 161 mg/dL High 80 - 115 mg/dL AO ADM SS Hematocrit (Bld) [Volume fraction] 42.1 % Normal 42.0 - 52.0 % AO Workflow SS Hemoglobin (Bld) [Mass/Vol] 14.1 G/dL Normal 14.0 - 18.0 G/dL AO Workflow SS Lymphocyte, Absolute 1.0 103/mcL Normal 0.8 - 3 .9 10^3/mcL AO Workflow SS Lymphocytes/100 WBC (Bld) 6.7 % Low 10.0 - 50.0 % AO Workflow SS MCH (RBC) [Entitic mass] 30.3 pg Normal 27.0 - 31.2 pg AO Workflow SS MCHC 33.5 G/dL Normal 31.8 - 35.4 G/dL AO Workflow SS MCV (RBC) [Entitic vol] 90.5 fL Normal 80.0 - 94.0 fL AO Workflow SS Monocyte, Absolute 0.8 103/mcL Normal 0.2 - 1.0 10^3/mcL AO Workflow SS Monocytes/100 WBC (Bld) 5.6 % Normal 1.7 - 13.0 % AO Workflow SS Neutrophil, Absolute 12.7 103/mcL High 2.9 - 6 .2 10^3/mcL AO Workflow SS Neutrophils/100 WBC (Bld) 87.4 % High 37.0 - 80.0 % AO Workflow SS Platelet mean volume (Bld) [Entitic vol] 7.9 fL Normal 7.4 - 10.4 fL AO Workflow SS Platelets (Bld) [#/Vol] 254 103/mcL Normal 130 - 400 10^3/mcL AO Workflow SS Potassium [Moles/Vol] 4.9 mmol/L Normal 3.5 - 5.1 mmol/L AO ADM SS RBC (Bld) [#/Vol] 4.66 106/mcL Normal 4.04 - 6.1 3 10^6/mcL AO Workflow SS Sodium [Moles/Vol] 141 mmol/L Normal 136 - 145 mmol/L AO ADM SS Urea nitrogen [Mass/Vol] 11 mg/dL Normal 7 - 18 mg/dL AO ADM SS Urea nitrogen/Creatinine [Mass ratio] 10 ratio Normal 7 - 27 ratio AO ADM SS WBC (Bld) [#/Vol] 14.5 103/mcL High 4.6 - 10.8 10^3/mcL AO Workflow SS XR SHOULDER MINIMUM 2 VIEWS LEFTon 03-22-2023 XR SHOULDER MINIMUM 2 VIEWS LEFT ORIGINAL EXAMINATION: TWO XRAY VIEWS OF THE LEFT SHOULDER 03/22/2023 3:23 pm COMPARISON: None. HISTORY: ORDERING SYSTEM PROVIDED HISTORY: Reason for Exam: Status Post Arthroplasty FINDINGS: Left shoulder arthroplasty findings are noted. There is an osseous density identified at the inferior aspect of the glenoid. A small fracture fragment could have this appearance. No other potential fracture seen. There is some air within the joint space from previous surgery. IMPRESSION: Potential small inferior glenoid osseous/fracture fragment. Otherwise well seated prosthesis. Interpreted by: Avtar Valdovinos MD Preliminary Report By: Avtar Valdovinos MD Electronically signed By Avtar Valdovinos MD Dictated Date: 03/22/2023 3:40:22 PM Prelim Date: 03/22/2023 3:41:54 PM Sign Date: 03/22/2023 3:41:54 PM Ordering Provider: LES Hagan [facility] ([place]) .Auto Diffon 03-21-2023 Basophil, Absolute 0.1 10 3/mcL Normal 0.0-0.2 [facility] ([place]) Comment on above: Performed By: #### A NSG, ABOG, CBC, BMP, ADIFF, GFR, ANEU, ALB #### [id number] [place], [place] [address] Basophils/100 WBC (Bld) 0.7 % Normal 0.0-2.5 [facility] ([place]) Comment on above: Performed By: #### A NSG, ABOG, CBC, BMP, ADIFF, GFR, ANEU, ALB #### [address] [address] Eosinophil, Absolute 0.2 10 3/mcL Normal 0.0-0.4 [facility] ([place]) Comment on above: Performed By: #### A NSG, ABOG, CBC, BMP, ADIFF, GFR, ANEU, ALB #### [address] [address] Eosinophils/100 WBC (Bld) 1.9 % Normal 0.0-7.0 [facility] ([place]) Comment on above: Performed By: #### A NSG, ABOG, CBC, BMP, ADIFF, GFR, ANEU, ALB #### [address] [address] Lymphocyte, Absolute 1.7 10 3/mcL Normal 0.8-3.9 [facility] ([place]) Comment on above: Performed By: #### A NSG, ABOG, CBC, BMP, ADIFF, GFR, ANEU, ALB #### [address] [address] Lymphocytes/100 WBC (Bld) 21.8 % Normal 10.0-50.0 [facility] ([place] Comment on above: Performed By: #### A NSG, ABOG, CBC, BMP, ADIFF, GFR, ANEU, ALB #### [address] [address] Monocyte, Absolute 0.7 10 3/mcL Normal 0.2-1.0 [facility] ([place] Comment on above: Performed By: #### A NSG, ABOG, CBC, BMP, ADIFF, GFR, ANEU, ALB #### [address] [address] Monocytes/100 WBC (Bld) 8.9 % Normal 1.7-13.0 [facility] ([place] Comment on above: Performed By: #### A NSG, ABOG, CBC, BMP, ADIFF, GFR, ANEU, ALB #### [address] [address] Neutrophils/100 WBC (Bld) 66.7 % Normal 37.0-80.0 [facility] ([place] Comment on above: Performed By: #### A NSG, ABOG, CBC, BMP, ADIFF, GFR, ANEU, ALB #### [address] [address] .GFRon 03-21-2023 GFR Non- 76 ml/min/1.73sqm Normal [facility] ([place]) Comment on above: Result Comment: GFR Population mean for , Non- Americans Ages 20-29 = 116 mL/min/1.73 sq.m. Ages 30-39 = 107 mL/min/1.73 sq.m. Ages 40-49 = 99 mL/min/1.73 sq.m. Ages 50-59 = 93 mL/min/1.73 sq.m. Ages 60-69 = 85 mL/min/1.73 sq.m. Ages 70+ = 75 mL/min/1.73 sq.m. Chronic Kidney Disease: Less than 60 mL/min/1.73 square meters End Stage Renal Disease: Less than 15 mL/min/1.73 square meters Performed By: #### A ROSENDA, BMP, CBC, GFR, ADIFF #### [address] [address] GFR 92 ml/min/1.73sqm Normal [facility] ([place]) Comment on above: Result Comment: GFR Population mean for , Non- Americans Ages 20-29 = 116 mL/min/1.73 sq.m. Ages 30-39 = 107 mL/min/1.73 sq.m. Ages 40-49 = 99 mL/min/1.73 sq.m. Ages 50-59 = 93 mL/min/1.73 sq.m. Ages 60-69 = 85 mL/min/1.73 sq.m. Ages 70+ = 75 mL/min/1.73 sq.m. Chronic Kidney Disease: Less than 60 mL/min/1.73 square meters End Stage Renal Disease: Less than 15 mL/min/1.73 square meters Performed By: #### A ROSENDA, BMP, CBC, GFR, ADIFF #### [address] [address] .NEUABSon 03-21-2023 Neutrophil, Absolute 5.3 10 3/mcL Normal 2.9-6.2 [facility] ([place]) Comment on above: Performed By: #### A NSG, ABOG, CBC, BMP, ADIFF, GFR, ANEU, ALB #### [address] [address] ALBon 03-21-2023 Albumin Level 3.9 G/dL Normal 3.4-4.8 [facility] ([place] Comment on above: Performed By: #### A NSG, ABOG, CBC, BMP, ADIFF, GFR, ANEU, ALB #### [address] [address] BMPon 03-21-2023 BUN/Creatinine Ratio 14 ratio Normal 7-27 [facility] ([place] Comment on above: Performed By: #### A NSG, ABOG, CBC, BMP, ADIFF, GFR, ANEU, ALB #### [address] [address] Calcium [Mass/Vol] 9.0 mg/dL Normal 8.4-10.2 [facility] ([place]) Comment on above: Performed By: #### A NSG, ABOG, CBC, BMP, ADIFF, GFR, ANEU, ALB #### [address] [address] Chloride [Moles/Vol] 104 mmol/L Normal 98-107 [facility] ([place] Comment on above: Performed By: #### A NSG, ABOG, CBC, BMP, ADIFF, GFR, ANEU, ALB #### [address] [address] CO2 [Moles/Vol] 31 mmol/L Normal 23-31 [facility] ([place] Comment on above: Performed By: #### A NSG, ABOG, CBC, BMP, ADIFF, GFR, ANEU, ALB #### [address] [address] Creatinine [Mass/Vol] 0.98 mg/dL Normal 0.70-1.30 [facility] ([place]) Comment on above: Performed By: #### A NSG, ABOG, CBC, BMP, ADIFF, GFR, ANEU, ALB #### [address] [address] Electrolyte Balance 8.0 mEq/L Normal 4.0-15.0 [facility] ([place]) Comment on above: Performed By: #### A NSG, ABOG, CBC, BMP, ADIFF, GFR, ANEU, ALB #### [address] [address] Glucose [Mass/Vol] 94 mg/dL Normal 80-115 [facility] ([place] Comment on above: Performed By: #### A NSG, ABOG, CBC, BMP, ADIFF, GFR, ANEU, ALB #### [address] [address] Potassium [Moles/Vol] 4.2 mmol/L Normal 3.5-5.1 [facility] ([place]) Comment on above: Performed By: #### A NSG, ABOG, CBC, BMP, ADIFF, GFR, ANEU, ALB #### [address] [address] Sodium [Moles/Vol] 143 mmol/L Normal 136-145 [facility] ([place] Comment on above: Performed By: #### A NSG, ABOG, CBC, BMP, ADIFF, GFR, ANEU, ALB #### [address] [address] Urea nitrogen [Mass/Vol] 14 mg/dL Normal 7-18 [facility] ([place] Comment on above: Performed By: #### A NSG, ABOG, CBC, BMP, ADIFF, GFR, ANEU, ALB #### [address] [address] CBCon 03-21-2023 Erythrocyte distribution width (RBC) [Ratio] 13.7 % Normal 11.5-14.5 [facility] ([place] Comment on above: Order Comment: Pre-A dmission Testing Performed By: #### A NSG, ABOG, CBC, BMP, ADIFF, GFR, ANEU, ALB #### [address] [address] Hematocrit (Bld) [Volume fraction] 48.0 % Normal 42.0-52.0 [facility] ([place] Comment on above: Order Comment: Pre-A dmission Testing Performed By: #### A NSG, ABOG, CBC, BMP, ADIFF, GFR, ANEU, ALB #### [address] [place] [address] Hgb 16.0 G/dL Normal 14.0-18.0 [facility] ([place] Comment on above: Order Comment: Pre-A dmission Testing Performed By: #### A NSG, ABOG, CBC, BMP, ADIFF, GFR, ANEU, ALB #### [address] [address] MCH (RBC) [Entitic mass] 30.4 pg Normal 27.0-31.2 [facility] ([place] Comment on above: Order Comment: Pre-A dmission Testing Performed By: #### A NSG, ABOG, CBC, BMP, ADIFF, GFR, ANEU, ALB #### [address] [address] MCHC 33.3 G/dL Normal 31.8-35.4 [facility] ([place] Comment on above: Order Comment: Pre-A dmission Testing Performed By: #### A NSG, ABOG, CBC, BMP, ADIFF, GFR, ANEU, ALB #### [place] [place] [address] MCV (RBC) [Entitic vol] 91.1 fL Normal 80.0-94.0 [facility] ([place] Comment on above: Order Comment: Pre-A dmission Testing Performed By: #### A NSG, ABOG, CBC, BMP, ADIFF, GFR, ANEU, ALB #### [address] [address] Platelet 293 10 3/mcL Normal 130-400 [facility] ([place] Comment on above: Order Comment: Pre-A dmission Testing Performed By: #### A NSG, ABOG, CBC, BMP, ADIFF, GFR, ANEU, ALB #### [address] [address] Platelet mean volume (Bld) [Entitic vol] 7.6 fL Normal 7.4-10.4 [facility] ([place] Comment on above: Order Comment: Pre-A dmission Testing Performed By: #### A NSG, ABOG, CBC, BMP, ADIFF, GFR, ANEU, ALB #### [address] [address] RBC 5.27 10 6/mcL Normal 4.04-6.13 [facility] ([place] Comment on above: Order Comment: Pre-A dmission Testing Performed By: #### A NSG, ABOG, CBC, BMP, ADIFF, GFR, ANEU, ALB #### [address] [address] WBC 7.9 10 3/mcL Normal 4.6-10.8 [facility] ([place] Comment on above: Order Comment: Pre-A dmission Testing Performed By: #### A NSG, ABOG, CBC, BMP, ADIFF, GFR, ANEU, ALB #### [address] [address] Gel ABOon 03-21-2023 ABO/Rh Interp Positive Invalid Interpretation Code [facility] ([place]) Comment on above: Order Comment: SURG ROMAIN 12 -AC Performed By: #### A ROSENDA, BMP, CBC, GFR, ADIFF #### [address] [address] Gel ABSon 03-21-2023 Antibody Screen Gel Negative Normal [facility] ([place]) Comment on above: Order Comment: SURG ROMAIN 12/12 -AC Performed By: #### A ROSENDA, BMP, CBC, GFR, ADIFF #### [address] [place], [place] [address] LABORATORYOrdered By: Elana Patricio on 03-21-2023 ABO/Rh Interp Positive Invalid Interpretation Code AO BB SS Antibody Screen Gel Negative ABSC (03/21/23 1:26 PM) Normal AO BB SS LABORATORYOrdered By: SYSTEM SYSTEM on 03-21-2023 Albumin BCP dye [Mass/Vol] 3.9 G/dL Normal 3.4 - 4.8 G/dL AO ADM SS Basophil, Absolute 0.1 103/mcL Normal 0.0 - 0.2 10^3/mcL AO Workflow SS Basophils/100 WBC (Bld) 0.7 % Normal 0.0 - 2.5 % AO Workflow SS Calcium [Mass/Vol] 9.0 mg/dL Normal 8.4 - 10. 2 mg/dL AO ADM SS Chloride [Moles/Vol] 104 mmol/L Normal 98 - 10 7 mmol/L AO ADM SS CO2 [Moles/Vol] 31 mmol/L Normal 23 - 31 mmol/L AO ADM SS Creatinine [Mass/Vol] 0.98 mg/dL Normal 0.70 - 1.30 mg/dL AO ADM SS Electrolyte Balance 8.0 mEq/L Normal 4.0 - 15 .0 mEq/L AO ADM SS Eosinophil, Absolute 0.2 103/mcL Normal 0.0 - 0 .4 10^3/mcL AO Workflow SS Eosinophils/100 WBC (Bld) 1.9 % Normal 0.0 - 7.0 % AO Workflow SS Erythrocyte distribution width (RBC) [Ratio] 13.7 % Normal 11.5 - 14.5 % AO Workflow SS GFR/1.73 sq M.predicted among blacks MDRD (S/P/Bld) [Vol rate/Area] 92 ml/min/1.73sqm Invalid Interpretation Code AO Chemistry S Comment on above: Interpretive Data: GFR Population mean for , Non- Americans Ages 20-29 = 116 mL/min/1.73 sq.m. Ages 30-39 = 107 mL/min/1.73 sq.m. Ages 40-49 = 99 mL/min/1.73 sq.m. Ages 50-59 = 93 mL/min/1.73 sq.m. Ages 60-69 = 85 mL/min/1.73 sq.m. Ages 70+ = 75 mL/min/1.73 sq.m. Chronic Kidney Disease: Less than 60 mL/min/1.73 square meters End Stage Renal Disease: Less than 15 mL/min/1.73 square meters GFR/1.73 sq M.predicted among non-blacks MDRD (S/P/Bld) [Vol rate/Area] 76 ml/min/1.73sqm Invalid Interpretation Code AO Chemistry S Comment on above: Interpretive Data: GFR Population mean for , Non- Americans Ages 20-29 = 116 mL/min/1.73 sq.m. Ages 30-39 = 107 mL/min/1.73 sq.m. Ages 40-49 = 99 mL/min/1.73 sq.m. Ages 50-59 = 93 mL/min/1.73 sq.m. Ages 60-69 = 85 mL/min/1.73 sq.m. Ages 70+ = 75 mL/min/1.73 sq.m. Chronic Kidney Disease: Less than 60 mL/min/1.73 square meters End Stage Renal Disease: Less than 15 mL/min/1.73 square meters Glucose [Mass/Vol] 94 mg/dL Normal 80 - 115 mg/dL AO ADM SS Hematocrit (Bld) [Volume fraction] 48.0 % Normal 42.0 - 52.0 % AO Workflow SS Hemoglobin (Bld) [Mass/Vol] 16.0 G/dL Normal 14.0 - 18.0 G/dL AO Workflow SS Lymphocyte, Absolute 1.7 103/mcL Normal 0.8 - 3 .9 10^3/mcL AO Workflow SS Lymphocytes/100 WBC (Bld) 21.8 % Normal 10.0 - 50.0 % AO Workflow SS MCH (RBC) [Entitic mass] 30.4 pg Normal 27.0 - 31.2 pg AO Workflow SS MCHC 33.3 G/dL Normal 31.8 - 35.4 G/dL AO Workflow SS MCV (RBC) [Entitic vol] 91.1 fL Normal 80.0 - 94.0 fL AO Workflow SS Monocyte, Absolute 0.7 103/mcL Normal 0.2 - 1.0 10^3/mcL AO Workflow SS Monocytes/100 WBC (Bld) 8.9 % Normal 1.7 - 13.0 % AO Workflow SS Neutrophil, Absolute 5.3 103/mcL Normal 2.9 - 6 .2 10^3/mcL AO Workflow SS Neutrophils/100 WBC (Bld) 66.7 % Normal 37.0 - 80.0 % AO Workflow SS Platelet mean volume (Bld) [Entitic vol] 7.6 fL Normal 7.4 - 10.4 fL AO Workflow SS Platelets (Bld) [#/Vol] 293 103/mcL Normal 130 - 400 10^3/mcL AO Workflow SS Potassium [Moles/Vol] 4.2 mmol/L Normal 3.5 - 5.1 mmol/L AO ADM SS RBC (Bld) [#/Vol] 5.27 106/mcL Normal 4.04 - 6.1 3 10^6/mcL AO Workflow SS Sodium [Moles/Vol] 143 mmol/L Normal 136 - 145 mmol/L AO ADM SS Urea nitrogen [Mass/Vol] 14 mg/dL Normal 7 - 18 mg/dL AO ADM SS Urea nitrogen/Creatinine [Mass ratio] 14 ratio Normal 7 - 27 ratio AO ADM SS WBC (Bld) [#/Vol] 7.9 103/mcL Normal 4.6 - 10.8 10^3/mcL AO Workflow SS Absolute lymphocyte countOrd ered By: Esequiel Hernandez on 01-21-2023 Lymphocytes Auto (Unsp spec) [#/Vol] 1.89 10*3/uL 0.83-4.51 [facility] Basophil percentageOrdered B y: Esequiel Hernandez on 01-21-2023 Basophils/100 WBC (Bld) 0.5 % 0-1 [facility] Bilirubin [Mass/Vol] 0.40 mg/dL 0.20-1.00 [facility] Comment on above: For patients on eltr ombopag therapy, use of Dimension [place] TBIL is not recommended. Chloride [Moles/Vol] 106 mmol/L 98-107 [facility] Cholesterol [Mass/Vol] 155 mg/dL <200 [facility] Comment on above: <200 mg/dL Desirable 200-240 mg/dL Borderline >240 mg/dL High Risk Eosinophils/100 WBC (Bld) 1.9 % 0-5 [facility] Glucose [Mass/Vol] 93 mg/dL 74-106 [facility] Neutrophils (Bld) [#/Vol] 4.8 10*3/uL 2.0-7.7 [facility] Neutrophils/100 WBC (Bld) 64.2 % 47-70 [facility] Potassium [Moles/Vol] 4.1 mmol/L 3.5-5.1 [facility] Protein [Mass/Vol] 7.4 g/dL 6.4-8.2 [facility] Sodium [Moles/Vol] 139 mmol/L 136-145 [facility] WBC (Bld) [#/Vol] 7.5 10*3/uL 4.4-11.0 [facility] Blood erythrocytes count (nu mber/volume)Ordered By: Esequiel Hernandez on 01-21-2023 RBC (Bld) [#/Vol] 5.25 10*6/uL 4.6-6.2 [facility] Blood hemoglobin measurement (mass/volume)Ordered By: Esequiel Hernandez on 01-21-2023 Hemoglobin (Bld) [Mass/Vol] 16.0 g/dL 13.0-16.5 [facility] Blood lymphocytes/100 leukoc ytesOrdered By: Esequiel Hernandez on 01-21-2023 Lymphocytes/100 WBC (Bld) 25.3 % 19-41 [facility] Blood monocytes/100 leukocyt esOrdered By: Esequiel Hernandez on 01-21-2023 Monocytes/100 WBC (Bld) 8.0 % 0-10 [facility] Blood platelet mean volumeOr dered By: Esequiel Hernandez on 01-21-2023 Platelet mean volume (Bld) [Entitic vol] 9.5 fL 6.2-12.0 [facility] Determination of erythrocyte mean corpuscular volume (MCV)Ordered By: Esequiel Hernandez on 01-21-2023 MCV (RBC) [Entitic vol] 92.4 fL 80-94 [facility] Hematocrit Auto (Bld) [Volum e fraction]Ordered By: Esequiel Hernandez on 01-21-2023 Hematocrit (Bld) [Volume fraction] 48.5 % 40-54 [facility] Laboratory - Chemistry and C hemistry - challengeOrdered By: Esequiel Hernandez on 01-21-2023 ALP [Catalytic activity/Vol] 89 U/L 45-117 [facility] ALT [Catalytic activity/Vol] 17 U/L 16-61 [facility] CO2 [Moles/Vol] 27.0 mmol/L 21.0-32.0 [facility] Globulin (S) [Mass/Vol] 3.7 g/dL 2.2-4.2 [facility] Urea nitrogen/Creatinine [Mass ratio] 18.6 mg/mg 10-20 [facility] Laboratory - Hematology and Cell countsOrdered By: Esequiel Hernandez on 01-21-2023 Erythrocyte distribution width (RBC) [Entitic vol] 46.0 fL 35.1-43.9 [facility] Erythrocyte distribution width (RBC) [Ratio] 13.4 % 11.6-14.6 [facility] Immature granulocytes/100 WBC (Bld) 0.100 % 0.0-0.9 [facility] Comment on above: IG% - Immature Granu locytes (promyelocytes, myelocytes and metamyelocytes) > 1% indicates that a LEFT SHIFT is Present. MCH (RBC) [Entitic mass] 30.5 pg 27.0-32.0 [facility] Nucleated RBC/100 WBC (Bld) [Ratio] 0 % 0-5 [facility] MCHC Auto (RBC) [Mass/Vol]Or dered By: Esequiel Hernandez on 01-21-2023 MCHC (RBC) [Mass/Vol] 33.0 g/dL 32-36 [facility] No Panel InformationOrdered By: Esequiel Hernandez on 01-21-2023 Estimated GFR (MDRD) Amer 113 mL/min >60 [facility] Comment on above: GFR Calc Estimated GFR (MDRD) Non-Af Amer 94 mL/min >60 [facility] Comment on above: Non- GFR Calc Prostate Specific Antigen Screen 1.53 ng/mL 0.00-4.00 [facility] Comment on above: This test was perfor med using the TPSA assay method for the[employer] chemistry system. Values obtained with differentassay methods cannot be used interchangably.When changing PSA assays in the course of monitoring apatient, additional sequential testing should be carriedout to confirm baseline values. Platelets bldOrdered By: Xiao Hernandez on 01-21-2023 Platelets (Bld) [#/Vol] 259 10*3/uL 150-450 [facility] Serum or plasma albumin jean urement (mass/volume)Ordered By: Esequiel Hernandez on 01-21-2023 Albumin [Mass/Vol] 3.7 g/dL 3.2-5.0 [facility] Serum or plasma albumin/glob ulin mass ratioOrdered By: Esequiel Hernandez on 01-21-2023 Albumin/Globulin [Mass ratio] 1.0 {ratio} 0.9-2.4 [facility] Serum or plasma calcium jean urement (mass/volume)Ordered By: Esequiel Hernandez on 01-21-2023 Calcium [Mass/Vol] 8.5 mg/dL 8.5-10.1 [facility] Serum or plasma cholesterol in HDL measurement (mass/volume)Ordered By: Esequiel Hernandez on 01-21-2023 Cholesterol in HDL [Mass/Vol] 48 mg/dL >40 [facility] Comment on above: The drugs N-Acetylcy steine and Metamizole may falsely depress this assay. Reference Range HDL <40 mg/dL Low HDL Cholesterol HDL >or= 60 mg/dL High HDL Cholesterol Serum or plasma creatinine m easurement (mass/volume)Ordered By: Esequiel Hernandez on 01-21-2023 Creatinine [Mass/Vol] 0.86 mg/dL 0.70-1.30 [facility] Comment on above: The validity of the calculated GFR & GFRAA in patients over 70 years has not been determined. Clinical correlation is essential. Serum or plasma urea nitroge n measurement (mass/volume)Ordered By: Esequiel Hernandez on 01-21-2023 Urea nitrogen [Mass/Vol] 16 mg/dL 7-18 [facility] Thin prep Papanicolaou smear with manual screeningOrdered By: Esequiel Hernandez on 01-21-2023 Thin prep Papanicolaou smear with manual screening 14 U/L 15-37 [facility] Thin prep Papanicolaou smear with manual screening 6 5-15 [facility] Vital Signs Date Time Vital Sign Value Performing Clinician Oneal degroot 03-23-2023 11:00-0500 Diastolic Blood Pressure Non-Invasive 76 mm[Hg] DR LES GARCIA MD [facility] 03-23-2023 11:00-0500 Heart rate 76 /min DR LES GARCIA MD [facility] 03-23-2023 11:00-0500 Systolic Blood Pressure Non-Invasive 135 mm[Hg] DR LES GARCIA MD [facility] 03-23-2023 08:48-0500 Body temperature 98.42 [degF] DR LES GARCIA MD [facility] 03-23-2023 08:48-0500 Diastolic Blood Pressure Non-Invasive 70 mm[Hg] DR LES GARCIA MD [facility] 03-23-2023 08:48-0500 Heart rate 77 /min DR LES GARCIA MD [facility] 03-23-2023 08:48-0500 Reason For Taking VItal Signs DR LES GARCIA MD [facility] 03-23-2023 08:48-0500 Respiratory rate 18 /min DR LES GARCIA MD [facility] 03-23-2023 08:48-0500 Systolic Blood Pressure Non-Invasive 119 mm[Hg] DR LES GARCIA MD [facility] 03-23-2023 04:17-0500 Body temperature 97.7 [degF] DR LES GARCIA MD [facility] 03-23-2023 04:17-0500 Diastolic Blood Pressure Non-Invasive 71 mm[Hg] DR LES GARCIA MD [facility] 03-23-2023 04:17-0500 Heart rate 82 /min DR LES GARCIA MD [facility] 03-23-2023 04:17-0500 Systolic Blood Pressure Non-Invasive 129 mm[Hg] DR LES GARCIA MD [facility] 03-22-2023 23:35-0500 Heart rate 72 /min DR LES GARCIA MD [facility] 03-22-2023 19:00-0500 Heart rate 83 /min DR LES GARCIA MD [facility] 03-22-2023 16:36-0500 Body height 172.[address] LES GARCIA MD [facility] 03-22-2023 16:36-0500 Body weight 93.[address] LES GARCIA MD [facility] 03-22-2023 16:36-0500 Body weight 31.38 kg/m2 DR LES GARCIA MD [facility] 03-22-2023 16:00-0500 Body temperature 97.34 [degF] DR LES GARCIA MD [facility] 03-22-2023 15:50-0500 Heart rate 70 /min DR LES GARCIA MD [facility] 03-22-2023 15:36-0500 Heart rate 65 /min DR LES GARCIA MD [facility] 03-22-2023 15:00-0500 Body temperature 96.98 [degF] DR LES GARCIA MD [facility] 03-22-2023 14:50-0500 Respiratory Rate - Anes 16 br/min DR LES GARCIA MD [facility] 03-22-2023 14:45-0500 Respiratory Rate - Anes 12 br/min DR LES GARCIA MD [facility] 03-22-2023 14:40-0500 Respiratory Rate - Anes 11 br/min DR LES GARCIA MD [facility] 03-22-2023 10:53-0500 Body height 172.[address] LES GARCIA MD [facility] 03-22-2023 10:53-0500 Body temperature 98.06 [degF] DR LES GARCIA MD [facility] 03-22-2023 10:53-0500 Body weight 93.[address] LES GARCIA MD [facility] 03-22-2023 10:53-0500 Heart rate 62 /min DR LES GARCIA MD [facility] 03-21-2023 13:05-[address] LES GARCIA MD [facility] 03-21-2023 13:05-[address] LES Blanco [facility] 03-21-2023 13:05-0500 Body height 172.[address] LES GARCIA MD [facility] 03-21-2023 13:05-0500 Body weight [address] LES GARCIA MD [facility] 03-21-2023 13:05-0500 Body weight 31.18 kg/m2 DR LES GARCIA MD [facility] 03-21-2023 13:05-0500 Diastolic Blood Pressure Non-Invasive 82 mm[Hg] DR LES GARCIA MD [facility] 03-21-2023 13:05-0500 Heart rate 72 /min DR LES GARCIA MD [facility] 03-21-2023 13:05-0500 Respiratory rate 18 /min DR LES GARCIA MD [facility] 03-21-2023 13:05-0500 Systolic Blood Pressure Non-Invasive 150 mm[Hg] DR LES GARCIA MD [facility] Encounters Encounter Date Encounter Type Care Provider Facility Start: 02-21-2025 ambulatory [facility] Facility:[facility] Start: 03-20-2024 End: 03-20-2024 [facility] Facility:[facility] Start: 02-21-2024 End: 02-21-2024 [facility] Facility:[facility] Start: 03-22-2023 End: 03-23-2023 Evaluation and management of inpatient DR LES GARCIA MD Facility:[facility] Start: 03-22-2023 End: 03-23-2023 Evaluation and management of inpatient DR LES GARCIA MD [facility] Start: 03-21-2023 End: 03-22-[address] LES GARCIA MD Facility:[facility] Start: 03-21-2023 End: 03-21-[address] LES GARCIA MD [facility] Start: 02-18-2023 End: 02-18-2023 ambulatory [facility] Work Phone: Start: 02-18-2023 End: 02-18-2023 Patient encounter procedure [facility] Work Phone: Start: 01-21-2023 End: 01-21-2023 ambulatory [facility] Work Phone: Start: 01-21-2023 End: 01-21-2023 Patient encounter procedure [facility]-Briseida Alvarado Start: 01-26-2022 End: 01-26-2022 ambulatory [facility] Work Phone: Start: 01-26-2022 End: 01-26-2022 Patient encounter procedure [facility], [facility] Procedures Date Procedure Procedure Detail Performing Clinician Start: 02-18-2023 CT of chest Start: 01-26-2022 CT of chest Cataract (disorder) DR SAVITA GARCIA MD Comment on above: LENS, SONIYA Colonoscopy DR LES Avila MD Endoscopy of nose DR LES GARCIA MD Total shoulder replacement D Margarita GARCIA MD Comment on above: LEFT Immunizations Immunization Date Immunization Notes Care Provider [facility] 03-23-2023 Influenza vaccine, quadrivalent, adjuvanted DR LES GARCIA MD [facility] 02-28-2023 SARS-CoV-2 (COVID-19 ) [id number] DR LES GARCIA MD [facility] 01-21-2023 pneumococcal 20-miguel angel nt conjugate vaccine DR LES GARCIA MD [facility] 09-03-2021 SARS-CoV-2 mRNA (ceqjbnheldu-slbb-lmqtnz e) vaccine DR LES GARCIA MD [facility] 01-30-2021 SARS-CoV-2 mRNA (tozinameran) vaccine DR LES GARCIA MD [facility] Comment on above: Result Comment: 2022: [id number] 07-10-2020 Covid (Pfizer) [facility] 06-19-2020 Covid (Pfizer) [facility] Comment on above: Result Comment: 2022: [id number] 06-09-2020 SARS-CoV-2 mRNA (toarleneeran) vaccine DR LES GARCIA MD [facility] 09-13-[address] LES GARCIA MD [facility] 07-12-2019 pneumococcal polysaccharide vaccine, [address] LES GARCIA MD [facility] 07-12-2019 tetanus toxoid, redu francesca diphtheria toxoid, and acellular pertussis vaccine, adsorbed DR LES GARCIA MD [facility] Payers Date Payer Category Payer Self-pay [id number] 2023 Medicare [id number] 2023 Private Health Insurance [id number] 1955 Unknown [id number] 1955 Unknown [id number] [facility] 18 [id number] Unknown [id number] Unknown [id number] Unknown [id number] Unknown [id number] Social History Date Type Detail Facility Start: 10-26-2017 End: 01-08-2019 Tobacco smoking status NHIS Unknown if ever smoked [facility] Start: 01-08-[address] [facility] 1955 Sex Assigned At Male [facility] Start: 03-21-2023 Tobacco smoking status Light t obacco smoker (finding) [facility] Medical Equipment Procedure Code Equipment Code Equipment Origin al Text Equipment Identifier Dates 2.0MM EQUINOXE GLENOID K-WIRE FDA Start: 10-25-2017 EQUINOXE REV GLENOSPHERE FDA Start: 10-25-2017 EQUINOXE REV HUM ERAL ADPT TRAY FDA Start: 10-25-2017 EQUINOXE REV HUM ERAL LINER FDA Start: 10-25-2017 EQUINXE REV JAMEY O LOCK SCREW FDA Start: 10-25-2017 [id number] REV CO MP SCREW BLK FDA Start: 10-25-2017 EQUINOXE PRESERV E PRFT STEM FDA Start: 10-25-2017 EQUINOXE REV ANG LE SCREW KIT FDA Start: 10-25-2017 EQUINOXE REV COM P SCREW BLUE FDA Start: 10-25-2017 EQUINOXE REV COM P SCREW ORNGE FDA Start: 10-25-2017 EQUINOXE REV COM P SCREW ORNGE FDA Start: 10-25-2017 EQUINOXE REV GLE NO LOCK SCREW FDA Start: 10-25-2017 EQUINOXE REV GLE NOID POST FDA Start: 10-25-2017 2.0MM EQUINOXE GLENOID K-WIRE FDA Start: 10-25-2017 EQUINOXE REV GLENOSPHERE FDA Start: 10-25-2017 EQUINOXE REV HUM ERAL ADPT TRAY FDA Start: 10-25-2017 EQUINOXE REV HUM ERAL LINER FDA Start: 10-25-2017 EQUINXE REV JAMEY O LOCK SCREW FDA Start: 10-25-2017 [id number] REV CO MP SCREW BLK FDA Start: 10-25-2017 EQUINOXE PRESERV E PRFT STEM FDA Start: 10-25-2017 EQUINOXE REV ANG LE SCREW KIT FDA Start: 10-25-2017 EQUINOXE REV COM P SCREW BLUE FDA Start: 10-25-2017 EQUINOXE REV COM P SCREW ORNGE FDA Start: 10-25-2017 EQUINOXE REV COM P SCREW ORNGE FDA Start: 10-25-2017 EQUINOXE REV GLE NO LOCK SCREW FDA Start: 10-25-2017 EQUINOXE REV GLE NOID POST FDA Start: 10-25-2017 2.0MM EQUINOXE GLENOID K-WIRE FDA Start: 10-25-2017 EQUINOXE REV GLENOSPHERE FDA Start: 10-25-2017 EQUINOXE REV HUM ERAL ADPT TRAY FDA Start: 10-25-2017 EQUINOXE REV HUM ERAL LINER FDA Start: 10-25-2017 EQUINXE REV JAMEY O LOCK SCREW FDA Start: 10-25-2017 [id number] REV CO MP SCREW BLK FDA Start: 10-25-2017 EQUINOXE PRESERV E PRFT STEM FDA Start: 10-25-2017 EQUINOXE REV ANG LE SCREW KIT FDA Start: 10-25-2017 EQUINOXE REV COM P SCREW BLUE FDA Start: 10-25-2017 EQUINOXE REV COM P SCREW ORNGE FDA Start: 10-25-2017 EQUINOXE REV COM P SCREW ORNGE FDA Start: 10-25-2017 EQUINOXE REV GLE NO LOCK SCREW FDA Start: 10-25-2017 EQUINOXE REV GLE NOID POST FDA Start: 10-25-2017 Functional Status Date Assessment Result Facility 03-23-2023 Functional Status 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 Status Room check performed [facility] 03-23-2023 Functional Status P[facility] 03-23-2023 Functional Status Pia [facility] 03-22-2023 Functional Status Pia [facility] 03-22-2023 Functional Status Independent Pia [facility] 03-22-2023 Functional Status None Piakyle deluna [facility] 03-22-2023 Functional Status Maintained [facility] 03-21-2023 Functional Status Sensory Deficits None [facility] Mental Status Date Assessment Result Facility 03-23-2023 Mental Status Oriented x 4 [facility] 03-23-2023 Mental Status [facility] 03-22-2023 Mental Status [facility] Clinical Notes 03-22-2023 to 03-23-2023 Note Date & Type Note Facility 03-23-2023 Hospital Discharg e instructions Patient Education 03/23/2023 10:51:00 Reverse Total Shoulder Replacement, Care After Reverse Total Shoulder Replacement, Care After This sheet gives you information about how to care for yourself after your procedure. Your health care provider may also give you more specific instructions. If you have problems or questions, contact your health care provider. What can I expect after the procedure? After the procedure, it is common to have: Pain. Stiffness. Follow these instructions at home: If you have a sling: Wear the sling as told by your health care provider. Remove it only as told by your health care provider. Loosen the sling if your fingers tingle, become numb, or turn cold and blue. Keep the sling clean. If the sling is not waterproof, do not let it get wet. Bathing Do not take baths, swim, or use a hot tub until your health care provider approves. Ask your health care provider if you may take showers. You may only be allowed to take sponge baths for bathing. If your sling is not waterproof, cover it with a watertight covering when you take a bath or shower. Keep your bandage (dressing) dry until your health care provider says it can be removed. Incision care Follow instructions from your health care provider about how to take care of your incision. Make sure you: ?Wash your hands with soap and water before you change your bandage (dressing). If soap and water are not available, use hand electrical machinist. ?Change your dressing as told by your health care provider. ?Leave stitches (sutures), skin glue, or adhesive strips in place. These skin closures may need to stay in place for 2 weeks or longer. If adhesive strip edges start to loosen and curl up, you may trim the loose edges. Do not remove adhesive strips completely unless your health care provider tells you to do that. Check your incision every day for signs of infection. Check for: ?More redness, swelling, or pain. ?More fluid or blood. ?Warmth. ?Pus or a bad smell. Driving Ask your health care provider when it is safe for you to drive. Do not drive or use heavy machinery while taking prescription pain medicine. Do not drive for 24 hours if you were given a medicine to help you relax (sedative). Activity Return to your normal activities as told by your health care provider. Ask your health care provider what activities are safe for you. Do shoulder exercises as told by your health care provider. Do not lift your arm above shoulder level until your health care provider approves. Do not make large arm movements. Do not push or pull things until your health care provider approves. Do not lift anything that is heavier than 5 lbs (2.3 kg) until your health care provider approves. Managing pain, stiffness, and swelling If directed, put ice on your shoulder. ?Put ice in a plastic bag. ?Place a towel between your skin and the bag. ?Leave the ice on for 20 minutes, 2 3 times a day. Move your fingers and hand often to avoid stiffness and to lessen swelling. General instructions Do not use any products that contain nicotine or tobacco, such as cigarettes and e-cigarettes. These can delay bone healing. If you need help quitting, ask your health care provider. To prevent or treat constipation while you are taking prescription pain medicine, your health care provider may recommend that you: ?Drink enough fluid to keep your urine clear or pale yellow. ?Take umvm-qsl-tkxuvam or prescription medicines. ?Eat foods that are high in fiber, such as fresh fruits and vegetables, whole grains, and beans. ?Limit foods that are high in fat and processed sugars, such as fried and sweet foods. Take atpf-tfi-fycieww and prescription medicines only as told by your health care provider. Keep all follow-up visits as told by your health care provider. This is important. Contact a health care provider if: You feel nauseous or you vomit. You are constipated. Constipation is when you have: ?Fewer bowel movements in a week than normal. ?Difficulty having a bowel movement. ?Stools that are dry, hard, or larger than normal. Your arm tingles or feels numb. Your pain gets worse, even after taking pain medicine. You have more redness, swelling, or pain around your incision. You have more fluid or blood coming from your incision. Your incision feels warm to the touch. You have pus or a bad smell coming from your incision. You have a fever. Get help right away if: Your shoulder joint moves out of place. Your incision comes apart. This information is not intended to replace advice given to you by your health care provider. Make sure you discuss any questions you have with your health care provider. Document Released: 09/28/2016 Document Revised: 11/18/2016 Document Reviewed: 09/28/2016 [email or web address] Patient Education 2020 [employer]. 03/23/2023 06:58:34 5 - [facility] Post-op Instruction 11/2016 (87124) [facility] Post-operative Instructions PLEASE FOLLOW [facility] POST-OP INSTRUCTIONS GIVEN WATCH FOR SIGNS OF INFECTION: call the office ([phone]) if experencing any of the following: (Usually appears 36-48 hours after surgery) Increased temperature (101 degrees Fahrenheit or higher) Redness or swelling Increased uncontrolled pain Foul odor or drainage Calf discomfort Significant swelling Or if having any chest pain, shortness of breath, or difficulty breathing or swallowing call the office or go the nearest Emergency Room. If you have any questions, please call your doctor at the number listed on your follow up instructions. Form: 338A (18445) R: 08/1503/22/2023 16:43:25 VIS, Influenza (Flu) Vaccine (Inactivated or Recombinant) - CDC (11/23/2018) Influenza (Flu) Vaccine (Inactivated or Recombinant): What You Need to Know 1. Why get vaccinated? Influenza vaccine can prevent influenza (flu). Flu is a contagious disease that spreads around the [place] every year, usually between January and August. Anyone can get the flu, but it is more dangerous for some people. Infants and young children, people 65 years of age and older, women, and people with certain health conditions or a weakened immune system are at greatest risk of flu complications. Pneumonia, bronchitis, sinus infections and ear infections are examples of flu-related complications. If you have a medical condition, such as heart disease, cancer or diabetes, flu can make it worse. Flu can cause fever and chills, sore throat, muscle aches, fatigue, cough, headache, and runny or stuffy nose. Some people may have vomiting and diarrhea, though this is more common in children than adults. Each year thousands of people in the [place] from flu, and many more are hospitalized. Flu vaccine prevents millions of illnesses and flu-related visits to the doctor each year. 2. Influenza vaccine CDC recommends everyone 6 months of age and older get vaccinated every flu season. Children 6 months through 8 years of age may need 2 doses during a single flu season. Everyone else needs only 1 dose each flu season. It takes about 2 weeks for protection to develop after vaccination. There are many flu viruses, and they are always changing. Each year a new flu vaccine is made to protect against three or four viruses that are likely to cause disease in the upcoming flu season. Even when the vaccine doesn't exactly match these viruses, it may still provide some protection. Influenza vaccine does not cause flu. Influenza vaccine may be given at the same time as other vaccines. 3. Talk with your health care provider Tell your vaccine provider if the person getting the vaccine: Has had an allergic reaction after a previous dose of influenza vaccine, or has any severe, life-threatening allergies. Has ever had Guillain Marcus Syndrome (also called GBS). In some cases, your health care provider may decide to postpone influenza vaccination to a future visit. People with minor illnesses, such as a cold, may be vaccinated. People who are moderately or severely ill should usually wait until they recover before getting influenza vaccine. Your health care provider can give you more information. 4. Risks of a vaccine reaction Soreness, redness, and swelling where shot is given, fever, muscle aches, and headache can happen after influenza vaccine. There may be a very small increased risk of Guillain Marcsu Syndrome (GBS) after inactivated influenza vaccine (the flu shot). Young children who get the flu shot along with pneumococcal vaccine (PCV13), and/or DTaP vaccine at the same time might be slightly more likely to have a seizure caused by fever. Tell your health care provider if a child who is getting flu vaccine has ever had a seizure. People sometimes faint after medical procedures, including vaccination. Tell your provider if you feel dizzy or have vision changes or ringing in the ears. As with any medicine, there is a very remote chance of a vaccine causing a severe allergic reaction, other serious injury, or . 5. What if there is a serious problem? An allergic reaction could occur after the vaccinated person leaves the clinic. If you see signs of a severe allergic reaction (hives, swelling of the face and throat, difficulty breathing, a fast heartbeat, dizziness, or weakness), call and get the person to the nearest hospital. For other signs that concern you, call your health care provider. Adverse reactions should be reported to the Vaccine Adverse Event Reporting System (VAERS). Your health care provider will usually file this report, or you can do it yourself. Visit the VAERS website at www.vaers.hhs.gov or call .VAERS is only for reporting reactions, and VAERS staff do not give medical advice. 6. The National Vaccine Injury Compensation Program The National Vaccine Injury Compensation Program (VICP) is a federal program that was created to compensate people who may have been injured by certain vaccines. Visit the VICP website at www.hrsa.gov/vaccinecompensation or call to learn about the program and about filing a claim. There is a time limit to file a claim for compensation. 7. How can I learn more? Ask your healthcare provider. Call your local or state health department. Contact the Centers for Disease Control and Prevention (CDC): ?Call (7-137-HXA-INFO) or ?Visit CDC's www.cdc.gov/flu Vaccine Information Statement (Interim) Inactivated Influenza Vaccine (11/23/2018) This information is not intended to replace advice given to you by your health care provider. Make sure you discuss any questions you have with your health care provider. Document Released: 01/20/2007 Document Revised: 07/17/2019 Document Reviewed: 11/27/2018 Elsevier Patient Education 2020 [employer] Follow Up Care 03/21/2023 09:33:44 With:[facility] Address: [address] [place] [phone] When:04/05/2023 Comments:Please call to schedule your first physical therapy appointment. With:FREEDOM JOHNSON PA-C, Orthopedic Address: [address] [place] [address] Orthopaedic & Sports Medicine, [place] [address]- [phone] When:04/05/2023 14:30:00 Comments:This is your post-op appointment. Follow-up as scheduled. [facility] 03-23-2023 Note Discharge Instructions Thank you for allowing [facility] to assist you with your healthcare needs. The following is important discharge information regarding your hospital visit. Your Care Team Les Garcia MD Your Diagnosis S/p reverse total shoulder arthroplasty What to do next Follow Up Appointments Follow Up with FREEDOM JOHNSON PA-C, Orthopedic When 04/05/2023 02:30 PM EST Why: This is your post-op appointment. Follow-up as scheduled. Where: [address] [place] [address] Orthopaedic & Sports [facility], [place] [address]- [phone] Follow Up with [facility] When In 13 days 04/05/2023 EST Why: Please call to schedule your first physical therapy appointment. Where: [address] [place] [phone] The Following Activity and Diet Have Been Ordered for You No qualifying data available. No qualifying data available. The Following Treatments Have Been Ordered for You Discharge Labs No qualifying data available. Discharge Radiology No qualifying data available. Other Therapies Physical Therapy Outpatient Eval & Treat - Future -- 03/23/23, Other, Begin phase 1 range of motion exercises beginning at 2 weeks postoperatively. No strengthening exercises until 6 weeks postoperative, Future Order, MSUR, No, S/p reverse total shoulder arthroplasty Post Acute Orders No qualifying data available. Allergies NKA Immunizations This Visit Given Vaccine Dateinfluenza virus vaccine, inactivated 03/23/2023 Medications Please ask your primary doctor or pharmacist before taking any other medication not listed, including over the counter drugs, herbal medications, vitamins and or supplements as they may interact with your home medications. What How Much When Why Instructions Last Dose Unchanged acetaminophen (acetaminophen 500 mg oral tablet) 2 tab(s) by mouth Three (3) times a day as needed for as needed for pain Duration: 14 Days not to exceed 3000 mg/ day Pickup at [facility] Unchanged aspirin (aspirin 81 mg oral delayed release tablet) 1 tab(s) by mouth Two (2) times a day Duration: 14 Days Take 81 mg aspirin twice daily with food for 2 weeks postoperatively for DVT prophylaxis. Pickup at [facility] Unchanged docusate-senna (Senokot S 50 mg-8.6 mg oral tablet) 2 tab(s) by mouth Two (2) times a day Duration: 3 Days Take until first bowel movement, then as needed Pickup at [facility] Unchanged doxycycline (doxycycline monohydrate 100 mg oral capsule) 1 cap by mouth Two (2) times a day Duration: 14 Days Take for 2 weeks postoperatively Pickup at [facility] Unchanged famotidine (Pepcid 20 mg oral tablet) 1 tab(s) by mouth Once a day Duration: 14 Days Pickup at [facility] Unchanged meloxicam (Mobic 7.5 mg oral tablet) 1 tab(s) by mouth Twice daily with meals Duration: 30 Days Do not take any other nonsteroidal anti-inflammatories while on meloxicam/ Mobic Pickup at [facility] Unchanged oxyCODONE (oxyCODONE 5 mg oral tablet ( IMMEDIATE release )) See instructions S/p reverse total shoulder arthroplasty 1-2 tab(s) Oral q4h Pickup at [facility] Pharmacy Information [facility]: [address] [place] [id number] [phone] Please take this list to your next doctor s visit. Bring all medications you take, including over the counter medications, herbals and other supplements with you to your doctor s visit. Patients and families are reminded to discard old lists and to update any records with all medication providers or retail pharmacies. Medication Leaflets aspirin (oral) ( pir in) Aspi-Cor, Noé Plus, Durlaza, Ecotrin, Miniprin, [place] What is the most important information I should know about aspirin? Aspirin can cause Nivia's syndrome, a serious and sometimes fatal condition in children. What is aspirin? Aspirin is a salicylate (hv-BQT-pi-ate) that is used to treat pain, and reduce fever or inflammation. Aspirin is sometimes used to treat or prevent heart attacks, strokes, and chest pain (angina). Aspirin should be used for these conditions only under the supervision of a doctor. Aspirin may also be used for purposes not listed in this medication guide. What should I discuss with my healthcare provider before taking aspirin? Using aspirin in a child or teenager with flu symptoms or chickenpox can cause a serious or fatal condition called Nivia's syndrome. You should not use aspirin if you are allergic to it, or if you have: a recent history of stomach or intestinal bleeding; a bleeding disorder such as hemophilia; or if you have ever had an asthma attack or severe allergic reaction after taking aspirin or an NSAID (non-steroidal anti-inflammatory drug). Tell your doctor if you have ever had: asthma or seasonal allergies; stomach ulcers; liver disease; kidney disease; a bleeding or blood clotting disorder; gout; or heart disease, high blood pressure, or congestive heart failure. Taking aspirin during late may cause bleeding in the mother or the baby during delivery. Tell your doctor if you are or plan to become . You should not breastfeed while using this medicine. How should I take aspirin? Use exactly as directed on the label, or as prescribed by your doctor. Always follow directions on the medicine label about giving aspirin to a child. Take with food if aspirin upsets your stomach. You must chew the chewable tablet before you swallow it. Do not crush, chew, break, or open an enteric-coated or delayed/extended-release pill. Swallow it whole. Tell your doctor if you have a planned surgery. Store at room temperature away from moisture and heat. Do not use aspirin if you smell a strong vinegar odor in the aspirin bottle. The medicine may no longer be effective. What happens if I miss a dose? Aspirin is used when needed. If you are on a dosing schedule, skip any missed dose. Do not use two doses at one time. What happens if I overdose? Seek emergency medical attention or call the Poison Help line at . Overdose may cause stomach pain, vomiting, diarrhea, vision or hearing problems, fast or slow breathing, or confusion. What should I avoid while taking aspirin? Avoid alcohol. Heavy drinking can increase your risk of stomach bleeding. Avoid taking ibuprofen if you take aspirin to prevent stroke or heart attack. Ibuprofen can make aspirin less effective in protecting your heart and blood vessels. Ask your doctor how far apart your doses should be. Ask a doctor or pharmacist before using other medicines for pain, fever, swelling, or cold/flu symptoms. They may contain ingredients similar to aspirin (such as magnesium salicylate, ibuprofen, ketoprofen, or naproxen). What are the possible side effects of aspirin? Get emergency medical help if you have signs of an allergic reaction: hives; difficult breathing; swelling of your face, lips, tongue, or throat. Stop using aspirin and call your doctor at once if you have: ringing in your ears, confusion, hallucinations, rapid breathing, seizure (convulsions); severe nausea, vomiting, or stomach pain; bloody or tarry stools, coughing up blood or vomit that looks like coffee grounds; fever lasting longer than 3 days; or swelling, or pain lasting longer than 10 days. Common side effects may include: upset stomach, heartburn; drowsiness; or mild headache. This is not a complete list of side effects and others may occur. Call your doctor for medical advice about side effects. You may report side effects to FDA at 9-668-LUM-9865. What other drugs will affect aspirin? Ask your doctor before using aspirin if you take an antidepressant. Taking certain antidepressants with aspirin may cause you to bruise or bleed easily. Ask a doctor or pharmacist before using aspirin with any other medications, especially: a blood thinner (warfarin, Coumadin, Jantoven), or other medication used to prevent blood clots; or other salicylates such as Nuprin Backache Caplet, Kaopectate, KneeRelief, Pamprin Cramp Formula, Pepto-Bismol, Tricosal, Trilisate, and others. This list is not complete. Other drugs may affect aspirin, including prescription and pigf-mxb-nmfamvi medicines, vitamins, and herbal products. Not all possible drug interactions are listed here. Where can I get more information? Your pharmacist can provide more information about aspirin. Remember, keep this and all other medicines out of the reach of children, never share your medicines with others, and use this medication only for the indication prescribed. Every effort has been made to ensure that the information provided by [employer]. ('[employer]') is accurate, up-to-date, and complete, but no guarantee is made to that effect. Drug information contained herein may be time sensitive. [employer] information has been compiled for use by healthcare practitioners and consumers in the [place] and therefore [employer] does not warrant that uses outside of the [place] are appropriate, unless specifically indicated otherwise. [employer] drug information does not endorse drugs, diagnose patients or recommend therapy. [employer] drug information is an informational resource designed to assist licensed healthcare practitioners in caring for their patients and/or to serve consumers viewing this service as a supplement to, and not a substitute for, the expertise, skill, knowledge and judgment of healthcare practitioners. The absence of a warning for a given drug or drug combination in no way should be construed to indicate that the drug or drug combination is safe, effective or appropriate for any given patient. [employer] does not assume any responsibility for any aspect of healthcare administered with the aid of information [employer] provides. The information contained herein is not intended to cover all possible uses, directions, precautions, warnings, drug interactions, allergic reactions, or adverse effects. If you have questions about the drugs you are taking, check with your doctor, nurse or pharmacist. Copyright 3189-2263 [employer]. Version: 18.01. Revision Date: 11/01/2022. acetaminophen (oral) (a SEET a MIN oh fen) Anacin AF, Children's Tylenol, Mapap, M-Pap, Pharbetol, Silapap Childrens, Tempra Quicklets, Tycolene, Tylenol What is the most important information I should know about acetaminophen? An overdose of acetaminophen can damage your liver or cause . Call your doctor at once if you have upper stomach pain, loss of appetite, dark urine, or jaundice (yellowing of your skin or eyes). Stop taking this medicine and get medical help if you have skin redness or a blistering rash. What is acetaminophen? Acetaminophen is used to reduce fever and relieve minor pain caused by conditions such as colds or flu, headache, muscle aches, arthritis, and menstrual cramps. Acetaminophen may also be used for purposes not listed in this medication guide. What should I discuss with my healthcare provider before taking acetaminophen? You should not take acetaminophen if you are allergic to it, or if you take other medications that contain acetaminophen. Ask a doctor or pharmacist if this medicine is safe to use if you've ever had cirrhosis of the liver, or if you drink alcohol daily. Ask a doctor before using this medicine if you are or . How should I take acetaminophen? Use exactly as directed on the label, or as prescribed by your doctor. An acetaminophen overdose can damage your liver or cause . Adults and teenagers at least 12 years old: Do not take more than 1000 milligrams (mg) at one time or more than 4000 mg in 24 hours. Children younger than 12 years old: Do not take more than 5 doses of children's formula acetaminophen in 24 hours. Do not give extra-strength acetaminophen to a child younger than 12 years old without medical advice. A child's dose is based on age and weight. Carefully follow the dosing instructions provided with this medicine. Ask a doctor before giving this medicine to a child younger than 2 years. Acetaminophen made for infants comes with its own medicine dropper or oral syringe. Measuring with the wrong device may cause an overdose. Use only the provided dosing device provided to measure an infant's dose. Acetaminophen comes in many different forms such as capsules, liquid, chewable or disintegrating tablets, and dissolving powders or granules. Read and carefully follow any Instructions for Use provided with your medicine. Ask your doctor or pharmacist if you need help. Stop taking acetaminophen and call your doctor if: you still have a sore throat after 2 days of use; you still have a fever after 3 days of use; you still have pain after 7 days of use (or 5 days if treating a child); you have a skin rash, ongoing headache, nausea, vomiting, redness or swelling; or your symptoms get worse, or if you have any new symptoms. Taking acetaminophen may cause false results with certain blood glucose monitors. If you have diabetes, ask your doctor about the best way to monitor your blood sugar levels while using acetaminophen. Store at room temperature away from heat and moisture. What happens if I miss a dose? Acetaminophen is used when needed. If you are on a dosing schedule, skip any missed dose. Do not use two doses at one time. What happens if I overdose? Seek emergency medical attention or call the Poison Help line at . An overdose can be fatal. Overdose symptoms include vomiting, stomach pain, and yellowing of your skin or eyes. What should I avoid while taking acetaminophen? Avoid using other medicines that may contain acetaminophen. Avoid drinking alcohol. What are the possible side effects of acetaminophen? Get emergency medical help if you have signs of an allergic reaction: hives; difficulty breathing; swelling of your face, lips, tongue, or throat. In rare cases, acetaminophen may cause a severe skin reaction that can be fatal, even if you took acetaminophen in the past and had no reaction. Stop taking this medicine and call your doctor right away if you have skin redness or a rash that spreads and causes blistering and peeling. Stop taking acetaminophen and call your doctor at once if you have signs of liver problems: stomach pain (upper right side); loss of appetite; tiredness, itching; dark urine, chelsea-colored stools; or jaundice (yellowing of the skin or eyes). Less serious side effects may be more likely, and you may have none at all. This is not a complete list of side effects and others may occur. Call your doctor for medical advice about side effects. You may report side effects to FDA at 6-545-XSG-6175. What other drugs will affect acetaminophen? Other drugs may affect acetaminophen, including prescription and odqa-gnu-gvoyaza medicines, vitamins, and herbal products. Tell your doctor about all other medicines you use. Where can I get more information? Your pharmacist can provide more information about acetaminophen. Remember, keep this and all other medicines out of the reach of children, never share your medicines with others, and use this medication only for the indication prescribed. Every effort has been made to ensure that the information provided by [employer] is accurate, up-to-date, and complete, but no guarantee is made to that effect. Drug information contained herein may be time sensitive. [employer] information has been compiled for use by healthcare practitioners and consumers in the [place] and therefore [employer] does not warrant that uses outside of the [place] are appropriate, unless specifically indicated otherwise. [employer] drug information does not endorse drugs, diagnose patients or recommend therapy. [employer] drug information is an informational resource designed to assist licensed healthcare practitioners in caring for their patients and/or to serve consumers viewing this service as a supplement to, and not a substitute for, the expertise, skill, knowledge and judgment of healthcare practitioners. The absence of a warning for a given drug or drug combination in no way should be construed to indicate that the drug or drug combination is safe, effective or appropriate for any given patient. [facility] does not assume any responsibility for any aspect of healthcare administered with the aid of information [facility] provides. The information contained herein is not intended to cover all possible uses, directions, precautions, warnings, drug interactions, allergic reactions, or adverse effects. If you have questions about the drugs you are taking, check with your doctor, nurse or pharmacist. Copyright 6521-9909 [facility]. Version: .. Revision Date: 11/08/2022. oxycodone (ox i KOE done) Oxaydo, OxyCONTIN, Roxicodone, RoxyBond, Xtampza ER What is the most important information I should know about oxycodone? MISUSE OF OPIOID MEDICINE CAN CAUSE ADDICTION, OVERDOSE, OR . Keep the medication in a place where others cannot get to it. Taking opioid medicine during may cause life-threatening withdrawal symptoms in the . Fatal side effects can occur if you use opioid medicine with alcohol, or with other drugs that cause drowsiness or slow your breathing. What is oxycodone? Oxycodone is an opioid pain medication used to treat moderate to severe pain. The extended-release form of oxycodone is for twxpcn-nnh-bcnxg treatment of pain and should not be used on an as-needed basis for pain. Oxycodone may also be used for purposes not listed in this medication guide. What should I discuss with my healthcare provider before using oxycodone? You should not use oxycodone if you are allergic to it, or if you have: severe asthma or breathing problems; or a blockage in your stomach or intestines. You should not use oxycodone unless you are already using a similar opioid medicine and are tolerant to it. Most brands of oxycodone are not approved for use in people under 18. OxyContin should not be given to a child younger than 11 years old. Tell your doctor if you have ever had: breathing problems, sleep apnea; a head injury, or seizures; drug or alcohol addiction, or mental illness; liver or kidney disease; urination problems; or problems with your gallbladder, pancreas, or thyroid. If you use opioid medicine while you are , your baby could become dependent on the drug. This can cause life-threatening withdrawal symptoms in the baby after it is born. Babies born dependent on opioids may need medical treatment for several weeks. Ask a doctor before using opioid medicine if you are . Tell your doctor if you notice severe drowsiness or slow breathing in the nursing baby. How should I use oxycodone? Follow the directions on your prescription label and read all medication guides. Never use oxycodone in larger amounts, or for longer than prescribed. Tell your doctor if you feel an increased urge to take more of this medicine. Never share opioid medicine with another person, especially someone with a history of drug abuse or addiction. MISUSE CAN CAUSE ADDICTION, OVERDOSE, OR . Keep the medication in a place where others cannot get to it. Selling or giving away opioid medicine is against the law. Stop taking all other grhsge-lod-ycopj opioid pain medicines when you start taking extended-release oxycodone. Take oxycodone with food. Swallow the capsule or tablet whole to avoid exposure to a potentially fatal overdose. Do not crush, chew, break, open, or dissolve. If you cannot swallow a capsule whole, open it and sprinkle the medicine into a spoonful of pudding or applesauce. Swallow the mixture right away without chewing. Do not save it for later use. Never crush or break an oxycodone pill to inhale the powder or mix it into a liquid to inject the drug into your vein. This can cause in . Measure liquid medicine carefully. Use the dosing syringe provided, or use a medicine dose-measuring device (not a kitchen spoon). You should not stop using oxycodone suddenly. Follow your doctor's instructions about tapering your dose. Store at room temperature, away from heat, moisture, and light. Keep track of your medicine. Oxycodone is a drug of abuse and you should be aware if anyone is using your medicine improperly or without a prescription. Do not keep leftover opioid medication. Just one dose can cause in someone using this medicine accidentally or improperly. Ask your pharmacist where to locate a drug take-back disposal program. If there is no take-back program, flush the unused medicine down the toilet. What happens if I miss a dose? Since oxycodone is used for pain, you are not likely to miss a dose. Skip any missed dose if it is almost time for your next dose. Do not use two doses at one time. What happens if I overdose? Seek emergency medical attention or call the Poison Help line at . An opioid overdose can be fatal, especially in a child or other person using the medicine without a prescription. Overdose symptoms may include severe drowsiness, pinpoint pupils, slow breathing, or no breathing. Your doctor may recommend you get naloxone (a medicine to reverse an opioid overdose) and keep it with you at all times. A person caring for you can give the naloxone if you stop breathing or don't wake up. Your caregiver must still get emergency medical help and may need to perform CPR (cardiopulmonary resuscitation) on you while waiting for help to arrive. Anyone can buy naloxone from a pharmacy or local health department. Make sure any person caring for you knows where you keep naloxone and how to use it. What should I avoid while using oxycodone? Do not drink alcohol. Dangerous side effects or could occur. Avoid driving or operating machinery until you know how oxycodone will affect you. Dizziness or severe drowsiness can cause falls or other accidents. Avoid medication errors. Always check the brand and strength of oxycodone you get from the pharmacy. What are the possible side effects of oxycodone? Get emergency medical help if you have signs of an allergic reaction: hives; difficult breathing; swelling of your face, lips, tongue, or throat. Opioid medicine can slow or stop your breathing, and may occur. A person caring for you should give naloxone and/or seek emergency medical attention if you have slow breathing with long pauses, blue colored lips, or if you are hard to wake up. Call your doctor at once if you have: noisy breathing, sighing, shallow breathing, breathing that stops during sleep; a slow heart rate or weak pulse; a light-headed feeling, like you might pass out; confusion, unusual thoughts or behavior; seizure (convulsions); low cortisol levels-- nausea, vomiting, loss of appetite, dizziness, worsening tiredness or weakness; or high levels of serotonin in the body--agitation, hallucinations, fever, sweating, shivering, fast heart rate, muscle stiffness, twitching, loss of coordination, nausea, vomiting, diarrhea. Serious breathing problems may be more likely in older adults and in those who are debilitated or have wasting syndrome or chronic breathing disorders. Common side effects may include: drowsiness, headache, dizziness, tiredness; or constipation, stomach pain, nausea, vomiting. This is not a complete list of side effects and others may occur. Call your doctor for medical advice about side effects. You may report side effects to FDA at 9-033-HJT-6559. What other drugs will affect oxycodone? You may have breathing problems or withdrawal symptoms if you start or stop taking certain other medicines. Tell your doctor if you also use an antibiotic, antifungal medication, heart or blood pressure medication, seizure medication, or medicine to treat HIV or hepatitis C. Opioid medication can interact with many other drugs and cause dangerous side effects or . Be sure your doctor knows if you also use: cold or allergy medicines, bronchodilator asthma/COPD medication, or a diuretic ('water pill'); medicines for motion sickness, irritable bowel syndrome, or overactive bladder; other opioids--opioid pain medicine or prescription cough medicine; a sedative like Valium--diazepam, alprazolam, lorazepam, Xanax, Klonopin, Versed, and others; drugs that make you sleepy or slow your breathing--a sleeping pill, muscle relaxer, medicine to treat mood disorders or mental illness; or drugs that affect serotonin levels in your body--a stimulant, or medicine for depression, Parkinson's disease, migraine headaches, serious infections, or nausea and vomiting. This list is not complete and many other drugs may affect oxycodone. This includes prescription and qwwy-zub-ytjrbkh medicines, vitamins, and herbal products. Not all possible drug interactions are listed here. Where can I get more information? Your pharmacist can provide more information about oxycodone. Remember, keep this and all other medicines out of the reach of children, never share your medicines with others, and use this medication only for the indication prescribed. Every effort has been made to ensure that the information provided by [employer] is accurate, up-to-date, and complete, but no guarantee is made to that effect. Drug information contained herein may be time sensitive. [employer] information has been compiled for use by healthcare practitioners and consumers in the [place] and therefore [employer] does not warrant that uses outside of the [place] are appropriate, unless specifically indicated otherwise. [employer] drug information does not endorse drugs, diagnose patients or recommend therapy. [facility] drug information is an informational resource designed to assist licensed healthcare practitioners in caring for their patients and/or to serve consumers viewing this service as a supplement to, and not a substitute for, the expertise, skill, knowledge and judgment of healthcare practitioners. The absence of a warning for a given drug or drug combination in no way should be construed to indicate that the drug or drug combination is safe, effective or appropriate for any given patient. [facility] does not assume any responsibility for any aspect of healthcare administered with the aid of information [facility] provides. The information contained herein is not intended to cover all possible uses, directions, precautions, warnings, drug interactions, allergic reactions, or adverse effects. If you have questions about the drugs you are taking, check with your doctor, nurse or pharmacist. Copyright 8999-3817 [facility]. Version: 16.. Revision Date: 11/12/2022. docusate and senna (DOK cailin sate and SEN a) Colace 2-in-1, Senexon-S, Senna Plus, Senna S, Senna-Time S, Senokot S, SenoSol-SS, Stool Softener + Stimulant Laxative, Stool Softener with Laxative What is the most important information I should know about docusate and senna? Use exactly as directed on the label, or as prescribed by your doctor. What is docusate and senna? Docusate is a stool softener. Senna is a laxative. Docusate and senna is a combination medicine used to treat occasional constipation. Docusate and senna may also be used for purposes not listed in this medication guide. What should I discuss with my healthcare provider before using docusate and senna? You should not use this medicine if you are allergic to docusate or senna, or if you are also taking mineral oil. Ask a doctor or pharmacist if this medicine is safe to use if you have ever had: nausea or vomiting; stomach pain; a sudden change in bowel habits that lasts for 2 weeks or longer; or an intestinal disorder such as Crohn's disease or ulcerative colitis. Ask a doctor before using this medicine if you are or . Do not give this medicine to a child younger than 2 years old without medical advice. How should I use docusate and senna? Use exactly as directed on the label, or as prescribed by your doctor. Take docusate and senna with a full glass of water. It may be best to take this medicine at night or at bedtime. Docusate and senna should cause you to have a bowel movement within 6 to 12 hours. Do not take docusate and senna for longer than 7 days in a row, unless your doctor tells you to. Call your doctor if your constipation does not improve or if it gets worse after taking docusate and senna. Store at room temperature away from moisture and heat. What happens if I miss a dose? Since docusate and senna is used when needed, you may not be on a dosing schedule. Skip any missed dose if it's almost time for your next dose. Do not use two doses at one time. What happens if I overdose? Seek emergency medical attention or call the Poison Help line at . Overdose symptoms may include nausea, vomiting, stomach pain, or diarrhea. What should I avoid while using docusate and senna? Ask a doctor or pharmacist before using any other laxative or other stool softener that may contain ingredients similar to docusate or senna. What are the possible side effects of docusate and senna? Get emergency medical help if you have signs of an allergic reaction: hives; difficulty breathing; swelling of your face, lips, tongue, or throat. Stop using docusate and senna and call your doctor at once if you have: rectal bleeding; severe stomach pain, nausea, vomiting; or no bowel movement. Common side effects may include: gas, bloating; diarrhea; or mild nausea. This is not a complete list of side effects and others may occur. Call your doctor for medical advice about side effects. You may report side effects to FDA at 4-851-WVZ-4294. What other drugs will affect docusate and senna? Other drugs may affect docusate and senna, including prescription and xdpb-tzg-ycpvpdp medicines, vitamins, and herbal products. Tell your doctor about all your current medicines and any medicine you start or stop using. Where can I get more information? Your pharmacist can provide more information about docusate and senna. Remember, keep this and all other medicines out of the reach of children, never share your medicines with others, and use this medication only for the indication prescribed. Every effort has been made to ensure that the information provided by [employer] is accurate, up-to-date, and complete, but no guarantee is made to that effect. Drug information contained herein may be time sensitive. [employer] information has been compiled for use by healthcare practitioners and consumers in the [place] and therefore [employer] does not warrant that uses outside of the [place] are appropriate, unless specifically indicated otherwise. [employer] drug information does not endorse drugs, diagnose patients or recommend therapy. [employer] drug information is an informational resource designed to assist licensed healthcare practitioners in caring for their patients and/or to serve consumers viewing this service as a supplement to, and not a substitute for, the expertise, skill, knowledge and judgment of healthcare practitioners. The absence of a warning for a given drug or drug combination in no way should be construed to indicate that the drug or drug combination is safe, effective or appropriate for any given patient. [employer] does not assume any responsibility for any aspect of healthcare administered with the aid of information [employer] provides. The information contained herein is not intended to cover all possible uses, directions, precautions, warnings, drug interactions, allergic reactions, or adverse effects. If you have questions about the drugs you are taking, check with your doctor, nurse or pharmacist. Copyright 9872-0064 [employer]. Version: 5.01. Revision Date: 11/15/2022. famotidine (oral/injection) (fam [place] ti mick) Heartburn Relief, Pepcid, Pepcid AC, Pepcid AC Maximum Strength, Zantac 360 What is the most important information I should know about famotidine? Follow all directions on the label and package. Use exactly as directed. What is famotidine? Famotidine is used to treat and prevent ulcers in the stomach and intestines. It also treats conditions in which the stomach produces too much acid, such as Mojgan-Sun syndrome. Famotidine also treats gastroesophageal reflux disease (GERD) and other conditions in which acid backs up from the stomach into the esophagus, causing heartburn. The Zantac 360 brand of this medicine does not contain ranitidine, a medicine that was withdrawn from market in the [place]. Famotidine may also be used for purposes not listed in this medication guide. What should I discuss with my healthcare provider before taking famotidine? Heartburn can feel like a heart attack. Get emergency medical help if you have chest pain that spreads to your jaw or shoulder. You should not use this medicine if you are allergic to famotidine or similar medicines such as ranitidine (Zantac), cimetidine (Tagamet), or nizatidine (Axid). Ask a doctor or pharmacist if this medicine is safe to use if you have: kidney disease; liver disease; cancer stomach; or long QT syndrome (in you or a family member). Ask a doctor before using this medicine if you are or . How should I take famotidine? Use exactly as directed on the label, or as prescribed by your doctor. Famotidine oral is taken by mouth. Famotidine injection is given in a vein if you are unable to take the medicine by mouth. You may take famotidine oral with or without food. Measure liquid medicine with the supplied syringe or a dose-measuring device (not a kitchen spoon). Most ulcers heal within 4 weeks of famotidine treatment, but it may take up to 8 weeks of using this medicine before your ulcer heals. Keep using the medication as directed. Call your doctor if the condition you are treating with famotidine does not improve, or if it gets worse while using famotidine. Your treatment may also include changes in diet or lifestyle habits. Follow all instructions of your doctor or dietitian. Store at room temperature away from moisture, heat, and light. Do not allow the liquid medicine to freeze. Throw away any unused famotidine liquid that is older than 30 days. What happens if I miss a dose? Take the medicine as soon as you can, but skip the missed dose if it is almost time for your next dose. Do not take two doses at one time. What happens if I overdose? Seek emergency medical attention or call the Poison Help line at . What should I avoid while taking famotidine? Drinking alcohol may increase the risk of damage to your stomach. Avoid taking other stomach acid reducers unless your doctor has told you to. However, you may take an antacid (such as Maalox, Mylanta, Gaviscon, Milk of Magnesia, Rolaids, or Tums) with famotidine. What are the possible side effects of famotidine? Get emergency medical help if you have signs of an allergic reaction: hives; difficult breathing; swelling of your face, lips, tongue, or throat. Stop using famotidine and call your doctor at once if you have: confusion, hallucinations, agitation, lack of energy; a seizure; fast or pounding heartbeats, sudden dizziness (like you might pass out); or unexplained muscle pain, tenderness, or weakness especially if you also have fever, unusual tiredness, and dark colored urine. Some side effects may be more likely in older adults and in people who have severe kidney disease. Common side effects may include: headache; dizziness; or constipation or diarrhea. This is not a complete list of side effects and others may occur. Call your doctor for medical advice about side effects. You may report side effects to FDA at 4-699-IXT-0103. What other drugs will affect famotidine? Famotidine oral can make it harder for your body to absorb other medicines you take by mouth. Tell your doctor if you are taking: cefditoren; dasatinib; delavirdine; fosamprenavir; or tizanidine (if you are taking famotidine liquid). This list is not complete. Other drugs may affect famotidine, including prescription and [id number] medicines, vitamins, and herbal products. Not all possible drug interactions are listed here. Where can I get more information? Your doctor or pharmacist can provide more information about famotidine. Remember, keep this and all other medicines out of the reach of children, never share your medicines with others, and use this medication only for the indication prescribed. Every effort has been made to ensure that the information provided by [employer]. ('[employer]') is accurate, up-to-date, and complete, but no guarantee is made to that effect. Drug information contained herein may be time sensitive. [employer] information has been compiled for use by healthcare practitioners and consumers in the [place] and therefore [employer] does not warrant that uses outside of the [place] are appropriate, unless specifically indicated otherwise. [employer]'s drug information does not endorse drugs, diagnose patients or recommend therapy. [employer] drug information is an informational resource designed to assist licensed healthcare practitioners in caring for their patients and/or to serve consumers viewing this service as a supplement to, and not a substitute for, the expertise, skill, knowledge and judgment of healthcare practitioners. The absence of a warning for a given drug or drug combination in no way should be construed to indicate that the drug or drug combination is safe, effective or appropriate for any given patient. [facility] does not assume any responsibility for any aspect of healthcare administered with the aid of information [facility] provides. The information contained herein is not intended to cover all possible uses, directions, precautions, warnings, drug interactions, allergic reactions, or adverse effects. If you have questions about the drugs you are taking, check with your doctor, nurse or pharmacist. Copyright 5211-7590 [facility] [employer]. Version: 20.. Revision Date: 11/01/2022. meloxicam (oral/injection) (emily OKS i manoj) Anjeso, Mobic, Vivlodex What is the most important information I should know about meloxicam? Meloxicam can increase your risk of fatal heart attack or stroke. Do not use this medicine just before or after heart bypass surgery (coronary artery bypass graft, or CABG). Meloxicam may also cause stomach or intestinal bleeding, which can be fatal. What is meloxicam? Meloxicam is a nonsteroidal anti-inflammatory drug (NSAID) that is used to treat osteoarthritis or rheumatoid arthritis in adults. Meloxicam is also used to treat juvenile rheumatoid arthritis in children who are at least 2 years old. The Anjeso brand of meloxicam is used to treat moderate to severe pain in adults. Vivlodex is for use only in adults. Meloxicam may also be used for purposes not listed in this medication guide. What should I discuss with my healthcare provider before receiving meloxicam? Meloxicam can increase your risk of fatal heart attack or stroke. Do not use this medicine just before or after heart bypass surgery (coronary artery bypass graft, or CABG). Meloxicam may also cause stomach or intestinal bleeding, which can be fatal. Meloxicam may also cause stomach or intestinal bleeding, which can be fatal. These conditions can occur without warning while you are using meloxicam, especially in older adults. You should not use meloxicam if you are allergic to it, or if you ever had an asthma attack or severe allergic reaction after taking aspirin or an NSAID. Tell your doctor if you have ever had: [facility] 03-23-2023 Note Date of Service March 23, 2023 Subjective The patient was sitting in bedside chair upon examination. Patient denies any chest pain, shortness of breath, dizziness, lightheadedness, nausea or vomiting, or calf pain. No adverse overnight events. Pain has been controlled on medications. Patient has been doing very well this morning. He has been up walking the halls. Patient states he has very little pain. The block is wearing off. He still has some residual numbness but continues to improve as the morning goes along. Objective Vitals and Measurements T: 36.5 C (Oral) TMIN: 36.1 C (Temporal Artery) TMAX: 36.9 C (Oral) HR: 82 RR: 18 BP: 129/71 SpO2: 95% HT: 172.7 cm WT: 93.6 kg BMI: 31.38 Intake and Output 7AM Yesterday to 7AM Today Intake and Output (Last 24 hours) Intake Administration Information 1300.00 Output Intra-Op EBL 150.00 Urine Count 1.00 Total Summary Total Intake 1300.00 Total Output 150.00 Fluid Balance 1150.00 Physical Exam Vital signs stable, afebrile SCDs and TREVOR hose are in place bilaterally. Patient does not need to wear the TREVOR hose upon discharge Dressing is clean dry and intact UltraSling fitting appropriately Sensation is intact to axillary, radial, median, and ulnar distribution Motor intact with patient able to make okay sign, cross fingers, and thumbs up Weight Dosing Weight: 93.6 kg (03/22/23) Dosing Weight: 93.6 kg (03/22/23) Medications Medications (23) Active Scheduled: (11) acetaminophen 500 mg Tablet 1,000 mg 2 tab(s), Oral, q6hr aspirin 81 mg EC 81 mg 1 tab(s), Oral, BID bisacodyl 5 mg EC tablet 10 mg 2 tab(s), Oral, Once docusate sodium 100 mg Capsule 100 mg 1 cap(s), Oral, BID docusate-senna (Senokot S) 50 mg-8.6 mg Tablet 2 tab(s), Oral, BID doxycycline hyclate 100 mg Capsule 100 mg 1 cap(s), Oral, q12h famotidine 20 mg tablet 20 mg 1 tab(s), Oral, qDay influenza virus vaccine, inactivated adjuvanted preservative-free quadrivalent Susp (Fluad) 0.5 mL, Intramuscular, Vaccine-day 2 magnesium hydroxide 8% Suspension 30 mL UD 30 mL, Oral, Daily meloxicam 7.5 mg tablet 7.5 mg 1 tab(s), Oral, BIDM ondansetron 2 mg/ 1 mL 2 mL INJ 4 mg 2 mL, IV Push, q8h Continuous: (1) Lactated Ringers 1,000 mL 1,000 mL, Intravenous, 20 mL/hr PRN: (11) acetaminophen 325 mg Tablet 650 mg 2 tab(s), Oral, q4h diphenhydramine 25 mg tablet 25 mg 1 tab(s), Oral, q6h diphenhyDRAMINE 50 mg/mL (1 mL) INJ 25 mg 0.5 mL, IV Push, q6h ketorolac 30 mg/mL (1 mL) vial 15 mg 0.5 mL, IV Push, q6h morphine 2 mg/mL 1 mL syringe 2 mg 1 mL, IV Push, q5min ondansetron 2 mg/ 1 mL 2 mL INJ 4 mg 2 mL, IV Push, AsDirected ondansetron 2 mg/ 1 mL 2 mL INJ 4 mg 2 mL, IV Push, q8h oxycodone 5 mg tablet (immediate release) 5 mg 1 tab(s), Oral, q4h oxycodone 5 mg tablet (immediate release) 10 mg 2 tab(s), Oral, q4h prochlorperazine 10 mg/2 mL vial 5 mg 1 mL, IV Push, q6h sodium biphosphate-sodium phosphate 19 gm-7 gm Enema 133 mL, Rectal, qDay Lab Results 03/23 05:09 WBC: 14.5 H Hgb: 14.1 Hct: 42.1 Platelet: 254 Neutrophil %: 87.4 H Glucose Level: 161 H Sodium Level: 141 Potassium Level: 4.9 BUN: 11 Creatinine Lvl (s): 1.07 EKG No qualifying data available. Assessment/Plan 1. Status post revision right reverse total shoulder arthroplasty secondary to dislocation postop day #1 2. Continue pain medications: Tylenol, meloxicam, oxycodone. Do not take any other nonsteroidal anti-inflammatories while on meloxicam/Mobic 3. DVT prophylaxis: Take 81 mg aspirin twice daily with food for 2 weeks postoperatively for DVT prophylaxis. Patient denies past history of DVT or pulmonary embolism 4. Physical therapy: Continue with UltraSling at all times. Okay to take off sling for elbow range of motion and pendulum exercises 2-3 times daily. No range of motion of the operative shoulder. Will begin outpatient physical therapy after the 2-week follow-up at [facility]. 5. H & H: 14.1/42.1, asymptomatic. Postoperative anemia from surgery without intraoperative complications. At this time there is no need for treatment. 6. Reactive Leukocytosis: currently 14.5, afebrile. Patient did receive decadron intra-operatively. No clinical signs of infection. 7. Continue antibiotics reducing the risk of infection postoperatively secondary to revision surgery: Patient will continue with doxycycline for 2 weeks postoperatively while following cultures. I discussed with the patient potential side effects with the doxycycline including hypersensitivity to the sunlight and must take appropriate precautions. Also recommended probiotic while taking the antibiotic for 2 weeks postoperatively. Patient voiced understanding and agreement. 8. Encouraged incentive spirometry 9. Continue postoperative medical management per medicine 10. Postoperative constipation: Discussed with the patient to continue stool softener until first bowel movement. After first bowel movement patient can then take as needed. They were also instructed that if they are not able to have a bowel movement within 3 days they are to contact our office for change of medication. Patient voiced understanding. 11. Disposition: Patient is doing very well this morning. Plan will be for discharge home after therapy this morning as long as patient is medically stable, tolerates therapy, and pain is well-controlled. We discussed postoperative course of treatment with range of motion and physical therapy. I am going to have case management schedule 2 week postoperative appointment for physical therapy. Patient already has 2-week postoperative follow-up with [facility]. Patient would like his prescriptions E scribed to Devora in [facility]. Upon discharge patient will contact her office with any concerns or questions. I have reviewed the [place] Automated Rx Reporting System (OARRS) report for this patient for refill pattern and other prescriber involvement as part of the appropriate surveillance for the provision of acute and chronic controlled medications. The report was requested and reviewed on the date of this entry, and was considered in the prescribing process This dictation was created using voice recognition software. Phonetic and/or grammatical errors may exist. Digitally Signed by FEI LEE PA-C on 03/23/2023 06:58 [facility] Note Date of Service March 23, 2023 Subjective The patient was sitting in bedside chair upon examination. Patient denies any chest pain, shortness of breath, dizziness, lightheadedness, nausea or vomiting, or calf pain. No adverse overnight events. Pain has been controlled on medications. Patient has been doing very well this morning. He has been up walking the halls. Patient states he has very little pain. The block is wearing off. He still has some residual numbness but continues to improve as the morning goes along. Objective Vitals and Measurements T: 36.5 C (Oral) TMIN: 36.1 C (Temporal Artery) TMAX: 36.9 C (Oral) HR: 82 RR: 18 BP: 129/71 SpO2: 95% HT: 172.7 cm WT: 93.6 kg BMI: 31.38 Intake and Output 7AM Yesterday to 7AM Today Intake and Output (Last 24 hours) Intake Administration Information 1300.00 Output Intra-Op EBL 150.00 Urine Count 1.00 Total Summary Total Intake 1300.00 Total Output 150.00 Fluid Balance 1150.00 Physical Exam Vital signs stable, afebrile SCDs and TREVOR hose are in place bilaterally. Patient does not need to wear the TREVOR hose upon discharge Dressing is clean dry and intact UltraSling fitting appropriately Sensation is intact to axillary, radial, median, and ulnar distribution Motor intact with patient able to make okay sign, cross fingers, and thumbs up Weight Dosing Weight: 93.6 kg (03/22/23) Dosing Weight: 93.6 kg (03/22/23) Medications Medications (23) Active Scheduled: (11) acetaminophen 500 mg Tablet 1,000 mg 2 tab(s), Oral, q6hr aspirin 81 mg EC 81 mg 1 tab(s), Oral, BID bisacodyl 5 mg EC tablet 10 mg 2 tab(s), Oral, Once docusate sodium 100 mg Capsule 100 mg 1 cap(s), Oral, BID docusate-senna (Senokot S) 50 mg-8.6 mg Tablet 2 tab(s), Oral, BID doxycycline hyclate 100 mg Capsule 100 mg 1 cap(s), Oral, q12h famotidine 20 mg tablet 20 mg 1 tab(s), Oral, qDay influenza virus vaccine, inactivated adjuvanted preservative-free quadrivalent Susp (Fluad) 0.5 mL, Intramuscular, Vaccine-day 2 magnesium hydroxide 8% Suspension 30 mL UD 30 mL, Oral, Daily meloxicam 7.5 mg tablet 7.5 mg 1 tab(s), Oral, BIDM ondansetron 2 mg/ 1 mL 2 mL INJ 4 mg 2 mL, IV Push, q8h Continuous: (1) Lactated Ringers 1,000 mL 1,000 mL, Intravenous, 20 mL/hr PRN: (11) acetaminophen 325 mg Tablet 650 mg 2 tab(s), Oral, q4h diphenhydramine 25 mg tablet 25 mg 1 tab(s), Oral, q6h diphenhyDRAMINE 50 mg/mL (1 mL) INJ 25 mg 0.5 mL, IV Push, q6h ketorolac 30 mg/mL (1 mL) vial 15 mg 0.5 mL, IV Push, q6h morphine 2 mg/mL 1 mL syringe 2 mg 1 mL, IV Push, q5min ondansetron 2 mg/ 1 mL 2 mL INJ 4 mg 2 mL, IV Push, AsDirected ondansetron 2 mg/ 1 mL 2 mL INJ 4 mg 2 mL, IV Push, q8h oxycodone 5 mg tablet (immediate release) 5 mg 1 tab(s), Oral, q4h oxycodone 5 mg tablet (immediate release) 10 mg 2 tab(s), Oral, q4h prochlorperazine 10 mg/2 mL vial 5 mg 1 mL, IV Push, q6h sodium biphosphate-sodium phosphate 19 gm-7 gm Enema 133 mL, Rectal, qDay Lab Results 03/23 05:09 WBC: 14.5 H Hgb: 14.1 Hct: 42.1 Platelet: 254 Neutrophil %: 87.4 H Glucose Level: 161 H Sodium Level: 141 Potassium Level: 4.9 BUN: 11 Creatinine Lvl (s): 1.07 EKG No qualifying data available. Assessment/Plan 1. Status post revision right reverse total shoulder arthroplasty secondary to dislocation postop day #1 2. Continue pain medications: Tylenol, meloxicam, oxycodone. Do not take any other nonsteroidal anti-inflammatories while on meloxicam/Mobic 3. DVT prophylaxis: Take 81 mg aspirin twice daily with food for 2 weeks postoperatively for DVT prophylaxis. Patient denies past history of DVT or pulmonary embolism 4. Physical therapy: Continue with UltraSling at all times. Okay to take off sling for elbow range of motion and pendulum exercises 2-3 times daily. No range of motion of the operative shoulder. Will begin outpatient physical therapy after the 2-week follow-up at [facility] [place]. 5. H & H: 14.1/42.1, asymptomatic. Postoperative anemia from surgery without intraoperative complications. At this time there is no need for treatment. 6. Reactive Leukocytosis: currently 14.5, afebrile. Patient did receive decadron intra-operatively. No clinical signs of infection. 7. Continue antibiotics reducing the risk of infection postoperatively secondary to revision surgery: Patient will continue with doxycycline for 2 weeks postoperatively while following cultures. I discussed with the patient potential side effects with the doxycycline including hypersensitivity to the sunlight and must take appropriate precautions. Also recommended probiotic while taking the antibiotic for 2 weeks postoperatively. Patient voiced understanding and agreement. 8. Encouraged incentive spirometry 9. Continue postoperative medical management per medicine 10. Postoperative constipation: Discussed with the patient to continue stool softener until first bowel movement. After first bowel movement patient can then take as needed. They were also instructed that if they are not able to have a bowel movement within 3 days they are to contact our office for change of medication. Patient voiced understanding. 11. Disposition: Patient is doing very well this morning. Plan will be for discharge home after therapy this morning as long as patient is medically stable, tolerates therapy, and pain is well-controlled. We discussed postoperative course of treatment with range of motion and physical therapy. I am going to have case management schedule 2 week postoperative appointment for physical therapy. Patient already has 2-week postoperative follow-up with [facility]. Patient would like his prescriptions E scribed to Devora in [facility]. Upon discharge patient will contact her office with any concerns or questions. I have reviewed the [place] Automated Rx Reporting System (OARRS) report for this patient for refill pattern and other prescriber involvement as part of the appropriate surveillance for the provision of acute and chronic controlled medications. The report was requested and reviewed on the date of this entry, and was considered in the prescribing process This dictation was created using voice recognition software. Phonetic and/or grammatical errors may exist. Digitally Signed by FEI LEE PA-C on 03/23/2023 06:58 AM [facility] 03-22-2023 Note ORIGINAL EXAMINATION: TWO XRAY VIEWS OF THE LEFT SHOULDER 03/22/2023 3:23 pm COMPARISON: None. HISTORY: ORDERING SYSTEM PROVIDED HISTORY: Reason for Exam: Status Post Arthroplasty FINDINGS: Left shoulder arthroplasty findings are noted. There is an osseous density identified at the inferior aspect of the glenoid. A small fracture fragment could have this appearance. No other potential fracture seen. There is some air within the joint space from previous surgery. IMPRESSION: Potential small inferior glenoid osseous/fracture fragment. Otherwise well seated prosthesis. Interpreted by: Avtar Valdovinos MD Preliminary Report By: Avtar Valdovinos MD Electronically signed By Avtar Valdovinos MD Dictated Date: 03/22/2023 3:40:22 PM Prelim Date: 03/22/2023 3:41:54 PM Sign Date: 03/22/2023 3:41:54 PM Ordering Provider: LES GARCIA [facility] 03-22-2023 Anesthesiology Consult note Patient: ELAINE BURGOS Age: 67 years Sex: Male : 1955 Associated Diagnoses: None Author: CHANTE GILL APRN-BIOMEDICAL TECHNICIAN Preoperative Information Time of last food or liquid consumption: 03/21/2023 23:59:00 Anesthesia history Patient's history: negative. Family's history: negative. Review of Systems Ear/Nose/Mouth/Throat: Negative except as documented in history of present illness. Respiratory: Negative except as documented in history of present illness. Cardiovascular: Negative except as documented in history of present illness. Gastrointestinal: Negative except as documented in history of present illness. Genitourinary: Negative except as documented in history of present illness. Endocrine: Negative except as documented in history of present illness. Musculoskeletal: Negative except as documented in history of present illness. Integumentary: Negative except as documented in history of present illness. Neurologic: Negative except as documented in history of present illness. Health Status Allergies: Allergic Reactions (Selected) NKA, Allergies (1) ActiveReaction NKANone Documented Current medications: (Selected) Inpatient Medications Ordered Decadron: 10 mg, 1 mL, IV Push, AsDirected LR 1000 mL: 125 mL/hr, Intravenous, Stop: 03/23/23 17:59:00 EST ceFAZolin: 2 gram(s), 200 mL/hr, IV Piggyback, PREOP pharm tranexamic acid 1 g / 100 mL 0.7% NaCl PMX: 1 gram(s), 100 mL, 300 mL/hr, IV Piggyback, AsDirected tranexamic acid 1 g / 100 mL 0.7% NaCl PMX: 1 gram(s), 100 mL, 300 mL/hr, IV Piggyback, AsDirected, Medications (5) Active Scheduled: (4) ceFAZolin 2 gram(s), IV Piggyback, PREOP pharm dexamethasone 10 mg/mL (1mL) SDV 10 mg 1 mL, IV Push, AsDirected tranexamic acid PMX 1 gram(s) 100 mL, IV Piggyback, AsDirected tranexamic acid PMX 1 gram(s) 100 mL, IV Piggyback, AsDirected Continuous: (1) Lactated Ringers 1000 mL 1,000 mL, Intravenous, 125 mL/hr PRN: (0) Problem list: No problem items selected or recorded., Active Problems (2) Osteoarthritis Tobacco use Histories Past Medical History: No active or resolved past medical history items have been selected or recorded. Family History: Cancer Grandparent Procedure history: Colonoscopy ([id number]). Nasal endoscopy ([id number]). Total shoulder replacement ([id number]). Comments: 03/21/2023 13:29 KALI Peralta LEFT Cataract ([id number]). Comments: 03/21/2023 13:30 KALI Peralta LENS, SONIYA Social History Social & Psychosocial Habits Alcohol 03/21/2023 Use: Current Frequency: 3-5 times per week Substance Abuse 03/21/2023 Use: Never Tobacco 03/21/2023 Tobacco Use: 5-9 cigarettes (between 1 Number of years: 49 Home/Environment 03/21/2023 Domestic Concerns None Marital Status of Patient if Patient Independent Adult: Unmarried Nutrition/Health 03/21/2023 Type of diet: Regular Eating Difficulties None . Physical Examination Vital Signs 03/22/2023 10:53 EST Temperature Temporal Artery 36.7 DegC Apical Heart Rate 62 bpm Respiratory Rate 20 br/min Systolic Blood Pressure Non-Invasive 140 mmHg Diastolic Blood Pressure Non-Invasive 76 mmHg 03/21/2023 13:05 EST Peripheral Pulse Rate 72 bpm Respiratory Rate 18 br/min Systolic Blood Pressure Non-Invasive 150 mmHg HI Diastolic Blood Pressure Non-Invasive 82 mmHg Blood Pressure Method Manual Blood Pressure Location Right arm Vital Signs(last 24 hrs) Last Charted Resp Rate 20 br/min (MAR 22 10:53) [id number] mmHg (MAR 22 10:53) [id number] mmHg (MAR 22 10:53) Measurements from flowsheet : Measurements 03/22/2023 10:53 EST Height 172.7 cm Height in inches 68 inch(es) Admission Weight 93.6 kg Weight Lbs 205.9 lb [place] Body Weight 68.38 kg Admission Body Mass Index 31.38 m2 03/21/2023 13:05 EST Height 172.7 cm Admission Weight 93 kg Weight Method Stated [place] Body Weight 68.38 kg Body Mass Index 31.18 kg/m2 Pain assessment: Pain Assessment 03/22/2023 11:10 EST Primary Pain Intensity 2 03/22/2023 10:53 EST Primary Pain Location Shoulder Primary Pain Laterality Left Primary Pain Intensity 2 Pain Scale Type 0-10 Pain scale . General: Alert and oriented. Airway: Normal neck range of motion. Mallampati classification: II (soft palate, fauces, uvula visible). Head: Normocephalic. Dentition Evaluation: Dentures, upper, Dentures, partial plate. Neck: Full range of motion. Respiratory: Lungs are clear to auscultation. Cardiovascular: Normal rate. Heart Sounds: Normal. Gastrointestinal: Soft. Musculoskeletal Normal range of motion. Integumentary: Intact, Warm, Dry. Neurologic: Alert, Oriented. Review / Management Results review: No qualifying data available , Lab results 03/22/2023 11:55 EST Time Out Procedure Verified Time Out Procedure Site Verified Yes Time Out Procedure Site Marked Yes Time Out Correct Patient Position Yes Consent Form Signed Yes Bedside Procedure Nerve Block Provider #1 Bedside Time Out Samantha Maharaj RN Provider #2 Bedside Time Out CHANTE GILL APRN-BIOMEDICAL TECHNICIAN Patient ID Band on and Verified Yes Anesthesia Consent Signed Yes Blood Consent Signed Yes 03/22/2023 11:18 EST SN - Preop - CTm Pt in SDS Room 03/22/2023 10:45 SN - Preop - CTm Pt Ready for OR/Proced 03/22/2023 11:18 03/22/2023 11:10 EST Primary Pain Intensity 2 celecoxib 400 mg mg oxyCODONE 10 mg mg 03/22/2023 11:05 EST vancomycin 1,000 mg mg Sodium Chloride 0.9% 250 mL mL 03/22/2023 11:04 EST Lactated Ringers Injection 1,000 mL mL 03/22/2023 11:03 EST Forearm Right 03/22/2023 20 gauge Peripheral IV Activity: Insert new site Peripheral IV Dressing Condition: Clean, Dry, Intact Peripheral IV Dressing Activity: Applied, Transparent dressing Peripheral IV Line Status/Patency: Flushes easily, Continuous infusion Peripheral IV Site Condition: No complications Peripheral IV Equipment: Extension set, PRN Adaptor 03/22/2023 10:53 EST Height 172.7 cm Height in inches 68 inch(es) Admission Weight 93.6 kg Weight Lbs 205.9 lb [place] Body Weight 68.38 kg Admission Body Mass Index 31.38 m2 Temperature Temporal Artery 36.7 DegC Apical Heart Rate 62 bpm Respiratory Rate 20 br/min Systolic Blood Pressure Non-Invasive 140 mmHg Diastolic Blood Pressure Non-Invasive 76 mmHg Primary Pain Location Shoulder Primary Pain Laterality Left Primary Pain Intensity 2 Pain Scale Type 0-10 Pain scale Heart Rhythm Regular Respirations Unlabored Respiratory Pattern Regular Oxygen Therapy Room air Oxygen Saturation 95 % Abdomen Description Non-distended Bowel Sounds All Quadrants Present Urinary Elimination Voiding, no difficulties Skin Temperature Warm Skin Description [place], Dry Skin Integrity Intact IV Present Present Neurological Symptoms Patient denies Extremity Movement Equal Characteristics of Speech Clear Level of Consciousness Alert Strength All Extremities Strong Tone All Extremities Normal Sensation All Extremities Intact Affect/Behavior Appropriate Orientation Oriented x 4 Allergies No Anesthesia Extension Set Applied Yes Layout Worker On Yes Consent Form Signed Yes Patient Dressed In Hospital gown CHG Preoperative Wash/Wipe Night before procedure, Day of procedure, Site specific wipe Preop Nasal Swab Povidone-Iodine CHG Skin Prep Completed for Eligible Surgery History & Physical Update On Chart Yes History & Physical On Chart Yes Obstructive Sleep Apnea Assess Completed Yes Belongings At Bedside Cell phone, Dentures, partial plate, Pants, Shirt, Shoes, Socks, Undergarments, Wallet Activity Status ADL Awake Sequential Compression Device bilateral knee high applied/on Antiembolism Stocking On/Re-applied bilateral thigh high NPO Status Maintained Standard Safety ID band on, Call device within reach, Bed in low position, Wheels locked, Upper/Half-Length side-rails up, Safety level maintained, Non-Slip footwear Allergy Band on and Verified No Patient ID Band on and Verified Yes Implants Verified Yes Pacemaker/AICD Verified Yes Site Verified by Patient/Family Yes Anesthesia Consent Signed Yes Blood Consent Signed Yes Last Fluid Intake 03/21/2023 21:00 Last Food Intake 03/21/2023 20:30 03/22/2023 10:51 EST Designated Person #1 We May Share PHI -LIMITED INFO ONLY- DESIRAE [phone] Designated Person #1 Relationship Sibling Privacy Restrictions Requested None Status N/A Sensory Deficits None Sleep Apnea Snore No Sleep Apnea Tired No Sleep Apnea Obstruction No Sleep Apnea Pressure No Sleep Apnea BMI No Sleep Apnea Age Yes Sleep Apnea Neck No Sleep Apnea Gender Yes Sleep Apnea Score 2 Diagnosed With Sleep Apnea No Advanced Directives Yes Advance Directive Type [place] Durable Power of Book Store Associate [facility] [place] Declaration (Living Will) Advance Directive Location Patient instructed to bring in copy Infectious Disease Symptoms Patient states no symptoms Infectious Disease Recent Exposure No Alcohol and Drug Use No Employee of Institutional Living No Health Care Employee No History of Exposure to TB No History of Positive Chest X-Ray for TB No History of Positive TB Skin Test No Homeless No Known Immunosuppression No Recent Immigrant No Resident of Institutional Living No Bloody Sputum No Fatigue No Fever No Loss of Appetite No Night Sweats No Persistent Cough > 3 Weeks No Weight Loss No Pre-Op Patient Education NPO after midnight, No smoking after midnight, No makeup, No jewelry, Aware of surgery location, Pre-op education done, 1 bottle CHG wash with instructions given, No ordered medications, Anesthesia block education provided SN - Preprocedure Comments Spoke with patient, Verbalizes/Nonverbally indicates understanding Barriers to Learning None evident Teaching Method Explanation, Printed materials Preferred Spoken Language [place] Islander Preferred Written Language [place] Islander Teaching Evaluation No further teaching needed Total Joint Book Given Yes Safety Brochure Information Reviewed Unable to complete Pia Barragan Video Viewed No Information Given by Patient Patient's Current Physicians Patient's Current Physicians Discharge To, Anticipated Home with family care Prev Test Positive/Diagnosis w/COVID-19 No Current Quarantine/Isolated any Illness No Any Contact with Sick Animals/Birds No Traveled Anywhere in Last 30 Days No Lost Weight Unintentionally Recently No Eat Poorly Due to Decreased Appetite No Total MST Score 0 N/A Personal Devices, Patient Valuables None Anesthesia/Transfusions Prior anesthesia Admission Note-Nursing Same Day Patient History 03/22/2023 5:56 EST CSummary CSUMMARY 03/21/2023 13:26 EST WBC 7.9 10^3/mcL RBC 5.27 10^6/mcL Hgb 16.0 G/dL Hct 48.0 % MCV 91.1 fL MCH 30.4 pg MCHC 33.3 G/dL RDW 13.7 % Platelet 293 10^3/mcL MPV 7.6 fL Neutrophil % 66.7 % Lymphocyte % 21.8 % Monocyte % 8.9 % Eosinophil % 1.9 % Basophil % 0.7 % Neutrophil, Absolute 5.3 10^3/mcL Lymphocyte, Absolute 1.7 10^3/mcL Monocyte, Absolute 0.7 10^3/mcL Eosinophil, Absolute 0.2 10^3/mcL Basophil, Absolute 0.1 10^3/mcL Glucose Level 94 mg/dL Sodium Level 143 mmol/L Potassium Level 4.2 mmol/L Chloride 104 mmol/L CO2 31 mmol/L Electrolyte Balance 8.0 mEq/L BUN 14 mg/dL Creatinine Lvl (s) 0.98 mg/dL BUN/Creatinine Ratio 14 ratio Calcium Lvl 9.0 mg/dL Albumin Level 3.9 G/dL GFR Non- 76 ml/min/1.73sqm NA GFR 92 ml/min/1.73sqm NA ABO/Rh Interp O POS Antibody Screen Gel Negative ABSC Creatinine Clearance Calc 69.78 mL/min 03/21/2023 13:25 EST Individuals Taught Patient Learning Readiness Willing to learn Barriers to Learning None evident Teaching Method Explanation, Printed materials Pre Procedure/Surgery Education Appropriate expectations, Date/Time of procedure/surgery, Hospital gown requirement worn to OR, Leave valuables, jewelry, wedding ring at home, Meds to take or hold, NPO, Surgical skin prep Procedure/Surgical Teaching Evaluation Verbalizes/Nonverbally indicates understanding 03/21/2023 13:12 EST Electrocardiogram [AOH] - CV Completed (In Progress) 03/21/2023 13:05 EST Designated Person #1 We May Share PHI -LIMITED INFO ONLY- DESIRAE [phone] Designated Person #1 Relationship Sibling Height 172.7 cm Admission Weight 93 kg Weight Method Stated [place] Body Weight 68.38 kg Body Mass Index 31.18 kg/m2 Peripheral Pulse Rate 72 bpm Respiratory Rate 18 br/min Systolic Blood Pressure Non-Invasive 150 mmHg HI Diastolic Blood Pressure Non-Invasive 82 mmHg Blood Pressure Method Manual Blood Pressure Location Right arm Oxygen Saturation 95 % Status N/A Sensory Deficits None Sleep Apnea Snore No Sleep Apnea BMI No Sleep Apnea Age Yes Sleep Apnea Gender Yes Diagnosed With Sleep Apnea No Advanced Directives Yes Advance Directive Type [place] Durable Power of [place] Store [place] Declaration (Living Will) Advance Directive Location Patient instructed to bring in copy Infectious Disease Symptoms Patient states no symptoms Infectious Disease Recent Exposure No Alcohol and Drug Use No Employee of Institutional Living No Health Care Employee No History of Exposure to TB No History of Positive Chest X-Ray for TB No History of Positive TB Skin Test No Homeless No Known Immunosuppression No Recent Immigrant No Resident of Institutional Living No Bloody Sputum No Fatigue No Fever No Loss of Appetite No Night Sweats No Persistent Cough > 3 Weeks No Weight Loss No Pre-Op Patient Education NPO after midnight, No smoking after midnight, No makeup, No jewelry, Aware of surgery location, Pre-op education done, 1 bottle CHG wash with instructions given, No ordered medications, Anesthesia block education provided SN - Preprocedure Comments Spoke with patient, Verbalizes/Nonverbally indicates understanding Anesthesia Evaluation Date/Time 03/21/2023 13:25 Anesthesia Evaluation Performed By CHANTE GILL DEPARTMENT TRAFFIC FREIGHT ROUTER-BIOMEDICAL TECHNICIAN Anesthesia Evaluation Result Approved Barriers to Learning None evident Teaching Method Explanation Preferred Spoken Language [place]er Preferred Written Language [place]er Total Joint Book Given Yes Information Given by Patient Patient's Current Physicians Patient's Current Physicians Discharge To, Anticipated Home with family care Prev Test Positive/Diagnosis w/COVID-19 No Current Quarantine/Isolated any Illness No Any Contact with Sick Animals/Birds No Traveled Anywhere in Last 30 Days No Lost Weight Unintentionally Recently No Eat Poorly Due to Decreased Appetite No Total MST Score 0 N/A Personal Devices, Patient Valuables None Anesthesia/Transfusions Prior anesthesia Admission Note-Nursing Patient History PreTest . Assessment and Plan [place] [employer] (ASA) physical status classification: Class III. Anesthetic Preoperative Plan Premedication: intravenous. Anesthetic technique: General, Regional. Induction: intravenously. Maintenance airway: Oral endotracheal tube. Regional: Interscalene Block. Postoperative pain management: Per surgeon. Risks discussed: nausea, vomiting, headache, sore throat, dental injury, hypotension, allergic reaction, serious complications. Informed consent: signed by patient. Digitally Signed by CHANTE GILL on 03/22/2023 12:15 PM [facility] Evaluation + Plan note Future Appointments [facility] Evaluation note No assessment inform ation available [facility] Work Phone: Hospital course Narrative No data available for this section [facility] Hospital Discharge instructions No data available for this section [facility] Progress note No data available for this section [facility] Chief Complaint and Reason for Visit Chief Complaint NICOTINE DEP Chief Complaint TOBACCO USE Advance Directives No Advanced Directives Records Found Advance Directive Response Recorded Date/ Time Living Will Yes October 25, 2017 10:33am Power of Book Store Associate No October 25 8 10:33am Advance Directive Response Recorded Date/ Time Living Will Yes January 08, 2019 4:10pm Power of Book Store Associate Yes December 4:10pm Advance Directive Response Recorded Date/ Time Living Will Yes January 08, 2019 3:10pm Power of Book Store Associate Yes December 3:10pm Summary Purpose Family History No Family History Records Found Additional Source Comments Goals (unrecognized section and content) Goals may be documented in a n alternate sectionGoals may be documented in an alternate sectionGoals may be documented in an alternate section No data available for this section No data available for this section Care Teams (unrecognized sec tion and content) Team Status: Active Member Role Status Dates Dr. Esequiel Hernandez MD Family Provider Active Dr. Esequiel Hernandez MD Primary Care Provider Active Team Status: Inactive Member Role Status Dates Dr. Esequiel Hernandez MD Primary Care Provider, Earline bueno Active Team Status: Inactive Member Role Status Dates Dr. Esequiel Hernandez MD Primary Care Provide r, Attending Provider, Referring Provider Active (unrecognized sect ion and content) No Status Records FoundNo Status Records Found INFORMATION SOURCE (unrecogn ized section and content) DATE CREATED AUTHOR 03/31/2023 [facility] ([place]) DATE CREATED AUTHOR AUTHOR'S DONNA ATKATE 02/13/2025 [facility] FOR RECORDS PERTAINING TO PATIENTS WHO ARE OR HAVE BEEN ENROLLED IN A CHEMICAL DEPENDENCY/SUBSTANCEABUSE PROGRAM, SOME INFORMATION MAY BE OMITTED. This clinical summary was aggregated from multiple sources. Caution should be exercised in using it in the provision of clinical care. This summary normalizes information from multiple sources, and as a consequence, information in this document may materially change the coding, format and clinical context of patient data. In addition, data may be omitted in some cases. CLINICAL DECISIONS SHOULD BE BASED ON THE PRIMARY CLINICAL RECORDS. [facility]. provides no warranty or guarantee of the accuracy or completeness of information in this document.
== END | disposition home or self-care (01) ==
LOC: CT 06:28
PROVIDERS: PCP Family Medicine; Referring Provider Family Medicine; Visit Provider Family Medicine
DX: F17.211 Nicotine dependence, cigarettes, in remission (principal)
CPT/HCPCS: 71271